=== PATIENT | male | born 1955 | race Caucasian/White ===

== ENCOUNTER 2016-07-20 11:27 | Inpatient (IN) | payer OTHER ==
[~2016-07-20] VITALS: Ht 193 cm; Wt 149.7 kg
[2016-07-20] VITALS (7 sets, daily range): BP systolic 123–179; BP diastolic 59–77; PULSE 76–89; RESP 16–26; TEMP 97.1–98.9; O2SAT 93–96
[~2016-07-20 11:27] MED LIST: ALBMDI INH; ALPR2TAB2 PO; AMLO5TAB4 PO; AMLO5TAB92 PO; AMOX-423 PO; AMOX-426 PO; ASA81 PO; ASPI-1063 PO; ASPI81TA2 PO; BUDE6HFA INH; CARV25TA55 PO; CEPH-568 PO; CEPH500C2 PO; CLIN-77 PO; CYAN100067 PO; DICY10CA59 PO; DOCU250C PO; DOXY-4 PO; DOXY100T2 PO; ENAL10TA PO; ENAL10TA75 PO; FAMO40TA35 PO; FURO-149 PO; FURO40TA5 PO; GLIP10TA11 PO; GLIP5TAB13 PO; GLU500 PO; HUMALOG; HUMULIN; INSU10VI4 SUBCUT; IPRA3AMP9 INH; LACT1CAP57 PO; METF1000 PO; METO-290 PO; METO5TAB8 PO; METR500T PO; NPH,100V SUBCUT; OMEP-130 PO; OMEP20CA10 PO; POTA20PA4 PO; POTA20TA83 PO; SIMV80TA74 PO; TRAM50TA92 PO
--- NOTE | 2016-07-20 11:27 | NUR ---
FREEDOM VILLASENOR from [facility]. Placed in room 06. Placed on gambling monitor, blood pressure machine and pulse oximeter. To gown for exam. Side rails up. Report given to LEONOR Palacios.
--- NOTE | 2016-07-20 11:28 | NUR ---
Dr. Garsia at bedside for evaluation
--- NOTE | 2016-07-20 11:30 | NUR ---
Patient in stable condition, alert and oriented x4. Patient states he needs thoracentesis due to lungs being overloaded. States last thoracentesis was appx 2 weeks ago. Breathing appears labored when patient speaks for period of time. Bilateral lower extremity +4 pitting edema with open blisters noted, dressings to bilateral lower extremities noted-clean dry and intact, patient states rehab dressed open blisters this AM. Addendum: 07/20/16 at 1221 by SAIDA No other complaints/injuries per patient or noted
[2016-07-20] MEDS ORDERED: ALBUTEROL SULFATE 0.083% 2.5 MG/3 ML VIAL.NEB IH ONE (11:45)
[2016-07-20] MEDS ORDERED: IPRATROPIUM BROM 0.5 MG/2.5 ML VIAL.NEB (ATROVENT) IH ONE (11:45)
[2016-07-20] MEDS ORDERED: FURO40TA5 PO (11:59)
[2016-07-20] MEDS ORDERED: MAGN400O4 PO (11:59)
[2016-07-20] MEDS ORDERED: ATOR20TA64 PO (11:59)
[2016-07-20] MEDS ORDERED: MUC10RT MC (11:59)
[2016-07-20] MEDS ORDERED: PIOG15TA66 PO (11:59)
[2016-07-20] MEDS ORDERED: SSNOVOLOG SUBCUT (11:59)
[2016-07-20] MEDS ORDERED: LACT1CAP69 PO (11:59)
[2016-07-20] MEDS ORDERED: ACET-2165 PO (11:59)
[2016-07-20] MEDS ORDERED: LORA-258 PO (11:59)
[2016-07-20] MEDS ORDERED: CAT.1 PO (11:59)
[2016-07-20] MEDS ORDERED: ONDA2VIA IV (11:59)
[2016-07-20] MEDS ORDERED: GLIP10TA98 PO (11:59)
[2016-07-20] MEDS ORDERED: NITR0.4T6 SL (11:59)
[2016-07-20] MEDS ORDERED: INSU100V11 SQ (11:59)
[2016-07-20] MEDS ORDERED: IPRA3AMP9 INH ×2 (11:59)
[2016-07-20] MEDS ORDERED: FERR-57 PO (11:59)
[2016-07-20] MEDS ORDERED: PRED20TA PO (11:59)
[2016-07-20] MEDS ORDERED: HYDR-1189 PO (11:59)
--- NOTE | 2016-07-20 12:00 | NUR ---
Medication reconciliation completed with information provided by [facility]. Any prior medication reconciliation on file was reviewed and corrected.
[2016-07-20 12:03] LABS: ABG TOTAL HEMOGLOBIN 9.1 G/dL (12.0-18.0); BLOOD GAS BASE EXCESS -1.4 mmol/L (-3.0-3.0); BLOOD GAS HHB 4.1 % (0.0-6.0); BLOOD O2Hb% 94.4 % (94.0-97.0)
--- NOTE | 2016-07-20 12:06 | NUR ---
# 20 gauge angiocath placed to RAC. Use of asceptic technique. Opsite placed over site. Blood return noted. Blood for lab drawn from site. Flushed with 10 cc of normal saline. No evidence of infiltration noted. Patient tolerated well.
[2016-07-20 12:14] LABS: BASOPHILS % (AUTO) 0.3 % (0.0-2.0); EOSINOPHILS # (AUTO) 0.2 K/uL (0.0-0.4); EOSINOPHILS % (AUTO) 2.9 % (0.0-4.0); HEMATOCRIT 26.6 % (36-54); HEMOGLOBIN 8.6 g/dL (14.0-18.0); LYMPHOCYTES # (AUTO) 0.6 K/uL (1.0-5.5); LYMPHOCYTES % (AUTO) 7.2 % (20.5-51.5); MEAN CORPUSCULAR HEMOGLOBIN 27 pg (27-31); MEAN CORPUSCULAR HGB CONC 32 % (32-36); MEAN CORPUSCULAR VOLUME 85 fL (79.0-98.0); MONOCYTES # (AUTO) 0.9 K/uL (0.0-1.0); MONOCYTES % (AUTO) 11.6 % (1.7-9.3); NEUTROPHILS # (AUTO) 6.2 K/uL (1.8-7.7); PLATELET COUNT (AUTO) 231 K/uL (130-430); RED BLOOD CELL COUNT(AUTO) 3.14 MIL/uL (4.2-6.2); RED CELL DISTRIBUTION WIDTH 15.9 % (9.0-15.0); WHITE BLOOD COUNT (AUTO) 7.9 K/uL (4.8-10.8)
[2016-07-20 12:26] LABS: INR 1.1 (0.80-1.20); PROTHROMBIN TIME 11.6 SECS (9.5-12.5)
[2016-07-20 12:26] LABS: CALCIUM 8.2 mg/dL (8.4-11.0); CREATININE 2.36 mg/dL (0.55-1.30)
[2016-07-20 12:31] LABS: ALBUMIN 1.7 g/dL (3.4-4.8); TOTAL BILIRUBIN 0.3 mg/dL (0.0-1.0)
[2016-07-20] MEDS ORDERED: MORPHINE 2 MG/ML INJ. SYRINGE IVP ONE (13:00)
[2016-07-20] MEDS ORDERED: ONDANSETRON HCL 4 MG/2 ML VIAL IVP ONE (13:00)
--- NOTE | 2016-07-20 13:00 | NUR ---
No needs verbalized at this time. VSS.
--- NOTE | 2016-07-20 14:05 | NUR ---
Patient will be admitted to care of Dr. Salas. Admitted to Tele unit. Will go to room 109A. Belongings list completed. Summary report printed. Bedside report given to receiving RN.
--- NOTE | 2016-07-20 14:13 | NUR ---
ADMISSION NOTE Received patient from ER via zakiya, received report from SANTA GALVEZ. Patient admitted with diagnosis of RESPIRATORY FAILURE . Patient oriented to hospital routine, call light, toileting and safety-patient verbalized understanding.
[2016-07-20] MEDS ORDERED: IPRATROPIUM/ALBUTEROL SULFATE 3 ML AMPUL.NEB INH ONE (15:15)
[2016-07-20] MEDS ORDERED: NITROGLYCERIN 0.4 MG TAB.SUBL SL PRN (15:15)
[2016-07-20] MEDS ORDERED: cloNIDine HCL 0.1 MG TABLET PO PRN (15:15)
[2016-07-20] MEDS ORDERED: INSULIN REGULAR, HUMAN 100 UNITS/ML, 10 ML VIAL (novoLIN R) SUBCUT PRN (15:15)
[2016-07-20] MEDS ORDERED: DEXTROSE 50% JECT 50 ML DISP.SYRIN IVP PRN (15:15)
[2016-07-20] MEDS ORDERED: FUROSEMIDE 40 MG/4 ML VIAL IVP ONE (15:15)
--- NOTE | 2016-07-20 15:33 | NUR ---
ADMISSION PATIENT WAS BROUGHT FROM ER WITH RESPIRATORY FAILURE. PATIENT CAME FROM [facility] IN STABLE CONDITION, NO NOTED DISTRESS, DISCOMFORT OR SOB. PATIENT IS ALERT AND ORIENTED AND ABLE TO COMMUNICATE NEEDS TO STAFF. PATIENT IS BEDREST. PATIENT HAS BILATERAL PITTING EDEMA TO LOWER EXTREMITIES. THERE ARE WOUNDS TO THE LOWER LEGS AND PICTURES WILL BE TAKEN. BED IS IN LOWEST POSITION AND CALL LIGHT IS WITHIN REACH. PATIENT WAS EDUCATED NOT GET UP WITHOUT ASSISTANCE. WILL CONTINUE TO MONITOR.
--- NOTE | 2016-07-20 16:26 | NUR ---
NOTE PICTURES WERE TAKEN OF BILATERAL LEGS AND NEW DRESSINGS WERE APPLIED, PATIENT TOLERATED IT WELL. NO COMPLAINTS OF PAIN, NO NOTED DISTRESS, DISCOMFORT OR SOB. PATIENT IS ON O2@2.5L VIA N/C. CALL LIGHT IS WITHIN REACH AND BED IS IN LOWEST POSITION. WILL CONTINUE TO MONITOR.
[2016-07-20] MEDS ORDERED: cefTRIAXone 1 GM in D5W 50 ML IV ONE (16:30)
--- NOTE | 2016-07-20 18:56 | NUR ---
CLOSING NOTE PATIENT IS RESTING IN BED COMFORTABLY WITH NO COMPLAINTS OF PAIN, NO NOTED DISTRESS, DISCOMFORT OR SOB. BED IS IN LOWEST POSITION AND CALL LIGHT IS WITHIN REACH. WILL GIVE REPORT TO NIGHT NURSE.
[2016-07-20] MEDS: IPRATROPIUM/ALBUTEROL SULFATE 3 ML AMPUL.NEB INH SCH ×2 (19:00→23:58)
--- NOTE | 2016-07-20 19:15 | NUR ---
change of shift.initial pt.assessment.pt.presents stressed,weak affect,sob breath.iv access:rt.antecubital. o2 applied 2 the pt.i am 2 f/u regarding c/o pain,nausea.call light w/in pt's reach.
--- NOTE | 2016-07-20 20:00 | NUR ---
pt.assessed.pt.requested medication4 nausea,pain.pt.requested morphine.ipt.prequesting maalox:acid reflux.i have reviewedd reviewed the emar:morphine,zofran,d/c post er-dept dose.no maalox order.i apprised the pt.that i am 2 f/u telephone .
[2016-07-20] MEDS: HYDROcodone/ACETAMIN 5-325 MG TAB (NORCO/ VICODIN) PO PRN (20:04)
--- NOTE | 2016-07-20 20:30 | NUR ---
blood glucose assessed:214 mg/dl.insulin coverage 2 b administered./sliding scale.
[2016-07-20] MEDS: ACETYLCYSTEINE 10% 4 ML VIAL (RT) INH SCH (21:00)
[2016-07-20] MEDS ORDERED: FUROSEMIDE 40 MG/4 ML VIAL IVP SCH (21:00)
--- NOTE | 2016-07-20 21:00 | NUR ---
2100p medications administered.medications reviewed w/pt.lasix:80mg ivp administered :pt.apprised of the dosage and 2 anticipate excessive urination w/in 1-2hrs.pt.understanding.
--- NOTE | 2016-07-20 21:30 | NUR ---
carrington returnd call.i apprised of the pt's medication request. has ordered morphine :4mg ivp, zofran:4mg ivp,maalox:30ml po.i have admimistered the medications.pt.had requested bi-pap. orderd the bipap [facility] settings:i have telephoned the facility and was conveyed the settings.bi-pap applied 2 the pt.
[2016-07-20] MEDS: ONDANSETRON HCL 4 MG/2 ML VIAL IVP PRN (21:37)
[2016-07-20] MEDS: FUROSEMIDE 40 MG/4 ML VIAL IVP SCH (21:44)
[2016-07-20] MEDS: DOCUSATE SODIUM 250 MG CAPSULE PO SCH (21:45)
[2016-07-20] MEDS: LACTOBACILLUS RHAMNOSUS GG 1 CAP CAPSULE PO SCH (21:46)
[2016-07-20] MEDS: CARVEDILOL 25 MG TABLET (COREG) PO SCH (21:46)
[2016-07-20] MEDS: ATORVASTATIN 20 MG TABLET PO SCH (21:49)
--- NOTE | 2016-07-20 22:00 | NUR ---
pt.assessed.pt.presents stable status.bipap applied /pt's request.urinal emptied:24hr urine collection recepticle. pt.repositioned.call light w/in pt's reach.
[2016-07-20] MEDS ORDERED: MAG-AL HYDROX/SIMETH 30 ML UDC PO PRN (22:45)
[2016-07-21] VITALS (9 sets, daily range): BP systolic 98–158; BP diastolic 51–77; PULSE 81–86; RESP 19–24; TEMP 97.5–99.5; O2SAT 90–95; Ht 193 cm; Wt 149.7 kg
--- NOTE | 2016-07-21 | NUR ---
pt.assessed.bi-pap reviewed:pt.o2 sat% 96%.pt.presents quiescent affect;calm,asleep. call light w/in pt's reach.
--- NOTE | 2016-07-21 00:39 | NUR ---
Consultation Paged Reason for consultation: Diabetic Was consult called: Yes Person who was notified: Dorothy Consulting Physician: Kem Emery [employer] Teacher Specialty: Endocrinology Ehs Teacher
--- NOTE | 2016-07-21 02:00 | NUR ---
pt.assesed.pt.presents quiescent affect;bipap assesse:o2 sat% 96%urinal emptied:24hr urine collection recepticle. no request.reminded pt.of the 1200ml h20 fluid restriction.call light w/in pt's reach.
[2016-07-21] MEDS: IPRATROPIUM/ALBUTEROL SULFATE 3 ML AMPUL.NEB INH SCH ×6 (03:00→23:32)
--- NOTE | 2016-07-21 04:00 | NUR ---
pt.assessed.urinal emptied.24hr urine recepticle.pt.provided w/cup of ice:reminded of fluid restriction.no other request@this hour.
--- NOTE | 2016-07-21 05:00 | NUR ---
pt.requested pillows 2 re-position pt.on side.i have provided the pillows assisted the pt.to the rt.side.no other request. pt.removed the bipap mask.
[2016-07-21] MEDS: MORPHINE 4 MG/ML INJ. SYRINGE IVP PRN ×2 (05:36→23:36)
[2016-07-21] MEDS: ONDANSETRON HCL 4 MG/2 ML VIAL IVP PRN ×2 (05:38→20:53)
--- NOTE | 2016-07-21 06:14 | NUR ---
pt.requested pain medication,nausea medication.i have admnistered morphine:4mg ivp,zofran:4mg ivp.2 assess pt.per pain protocol.
[2016-07-21 06:45] LABS: ALBUMIN 1.5 g/dL (3.4-4.8); CALCIUM 8.1 mg/dL (8.4-11.0); CREATININE 2.45 mg/dL (0.55-1.30); PHOSPHORUS 4.4 mg/dL (2.7-4.5); POTASSIUM 4.9 mmol/L (3.5-5.1); TOTAL BILIRUBIN 0.3 mg/dL (0.0-1.0); TOTAL PROTEIN, SERUM 6.6 g/dL (6.4-8.3)
[2016-07-21 06:49] LABS: BASOPHILS % (AUTO) 0.2 % (0.0-2.0); EOSINOPHILS # (AUTO) 0.2 K/uL (0.0-0.4); LYMPHOCYTES # (AUTO) 0.4 K/uL (1.0-5.5); LYMPHOCYTES % (AUTO) 6.5 % (20.5-51.5); MEAN CORPUSCULAR HEMOGLOBIN 27 pg (27-31); MEAN CORPUSCULAR HGB CONC 31 % (32-36); MEAN CORPUSCULAR VOLUME 86 fL (79.0-98.0); MONOCYTES # (AUTO) 0.8 K/uL (0.0-1.0); MONOCYTES % (AUTO) 12.6 % (1.7-9.3); NEUTROPHILS # (AUTO) 5.1 K/uL (1.8-7.7); NEUTROPHILS % (AUTO) 77.7 % (40.0-70.0); PLATELET COUNT (AUTO) 202 K/uL (130-430); RED BLOOD CELL COUNT(AUTO) 2.84 MIL/uL (4.2-6.2); RED CELL DISTRIBUTION WIDTH 16.1 % (9.0-15.0); WHITE BLOOD COUNT (AUTO) 6.5 K/uL (4.8-10.8)
[2016-07-21 07:29] LABS: HEMATOCRIT 24.3 % (36-54); HEMOGLOBIN 7.5 g/dL (14.0-18.0)
[2016-07-21 07:36] LABS: IRON (SERUM) 19 mcg/dL (59-158); TOTAL IRON BIND. CAPACITY 167 ug/dL (250-450)
[2016-07-21] MEDS: cefTRIAXone 1 GM in D5W 50 ML IV SCH (08:21)
[2016-07-21] MEDS: PREDNISONE 20 MG TABLET PO SCH (08:21)
[2016-07-21] MEDS: METOLAZONE 5 MG TABLET PO SCH (08:21)
[2016-07-21] MEDS: DOCUSATE SODIUM 250 MG CAPSULE PO SCH ×3 (08:21→21:00)
[2016-07-21] MEDS: ASPIRIN 81 MG TAB.CHEW PO SCH (08:21)
[2016-07-21] MEDS: FUROSEMIDE 40 MG/4 ML VIAL IVP SCH ×2 (08:21→20:53)
[2016-07-21] MEDS: LACTOBACILLUS RHAMNOSUS GG 1 CAP CAPSULE PO SCH ×2 (08:22→20:50)
[2016-07-21] MEDS: FERROUS SULFATE 325 MG TABLET.DR PO SCH (08:22)
[2016-07-21] MEDS: CARVEDILOL 25 MG TABLET (COREG) PO SCH ×2 (08:22→20:49)
[2016-07-21] MEDS: OMEPRAZOLE 20 MG CAPSULE.DR (PriLOSEC) PO SCH (08:22)
[2016-07-21] MEDS: glipiZIDE XL 5 MG TAB ( GLUCOTROL XL) PO SCH (08:22)
[2016-07-21] MEDS: CYANOCOBALAMIN 1000 mCg TABLET PO SCH (08:22)
--- NOTE | 2016-07-21 08:31 | NUR ---
AM ROUNDS Patient received, awake and alert and oriented x4. VSS. Patient denies pain at this time. Respirations even and unlabored. Patient denies SOB at this time. bookmobile librarian in place, rhythm noted. IV site patent intact and infusing IV ABX infusing as ordered. Patient has poor appetite at this time. Plan of care discussed, patient verbalized understanding. Patient encouraged to call for assistance, patient verbalized understanding. No further needs at this time. Safety and fall precautions in place, call light within reach. Will continue to monitor.
--- NOTE | 2016-07-21 10:05 | NUR ---
ROUNDS Thoracentesis being performed at this time. Patient tolerating well. No acute distress noted. Patient denies SOB at this time. Safety and fall precautions in place, call light within reach. Will continue to monitor.
[2016-07-21] MEDS: ACETYLCYSTEINE 10% 4 ML VIAL (RT) INH SCH ×2 (10:18→20:26)
[2016-07-21] MEDS: INSULIN ASPART 100 UNITS/ML, 10 ML VIAL (NovoLOG) SUBCUT PRN ×3 (11:36→22:23)
--- NOTE | 2016-07-21 12:52 | NUR ---
ROUNDS Patient sleeping, chest rise noted. No acute distress noted. Safety and fall precautions in place, call light within reach. Will continue to monitor.
[2016-07-21] MEDS ORDERED: FUROSEMIDE 40 MG/4 ML VIAL IVP ONE (13:15)
--- NOTE | 2016-07-21 14:29 | NUR ---
PULMONARY CONSULT Spoke with Linda regarding request for consultation with Dr. Nguyen ([phone]) for reason: pl effusion.
--- NOTE | 2016-07-21 14:38 | NUR ---
ROUNDS Patient resting at this time. Dr. Salas at bedside, new orders noted. Patient denies pain and SOB at this time. Will continue to monitor. Safety and fall precautions in place, call light within reach.
--- NOTE | 2016-07-21 16:08 | NUR ---
Nutrition Update Amador Scale 16 noted Pt was admitted for respiratory failure Diet: [facility] BMI: 40.2 kg/m2 RD to follow up per nutrition care standards.
--- NOTE | 2016-07-21 16:31 | NUR ---
ROUNDS Patient awake talking with family at this time. Denies pain and SOB. No further needs Safety and fall precautions in place, call light within reach. Will continue to monitor.
[2016-07-21] MEDS: HYDROcodone/ACETAMIN 5-325 MG TAB (NORCO/ VICODIN) PO PRN (17:53)
--- NOTE | 2016-07-21 18:01 | NUR ---
CLOSING NOTE Patient eating dinner at this time. Denies SOB. Patient stated 4/10 right sided abdominal pain, medication given as indicated, will reassess. Urine output noted. IV site patent and intact. school lunch monitor in place, rhythm noted. Blood sugar checked, coverage given as indicated. No further needs at this time. All needs met throughout shift. Safety and fall precautions in place, call light within reach. Will endorse to next shift.
--- NOTE | 2016-07-21 18:30 | NUR ---
BT INITIATION: Consent signed agreeing to administration of blood. Blood has been type and crossmatched. Blood sent from blood bank. Information on unit of blood checked against patient wristband at bedside by two nurses. All information matches. Patient or responsible republican informed of potential complications associated with blood transfusion. Informed of possible transfusion reaction symptoms. Aware of need to notify nurse at once of itching, shortness of breath, flushing, feeling of impending doom, or other symptoms not previously present. Vital signs taken within 5 minutes prior to initiation of transfusion. RN will remain with patient for first 15 minutes of transfusion at which time vital signs will be re-assessed.
[2016-07-21 18:33] LABS: CREATININE 2.36 mg/dL (0.55-1.30)
--- NOTE | 2016-07-21 20:00 | NUR ---
AAOX3. ON O2 AT 3L/MIN/NC. POX 90-92%. EATING BUFFALO WINGS. WANTS TO DRINK DIET SODA. REMINDED HE IS ON FLUID RESTRICTION. STATES HE KNOWS, HE JUST WANTED TO BURP. 1 UNIT PRBC INFUSING.
[2016-07-21] MEDS: ATORVASTATIN 20 MG TABLET PO SCH (20:50)
--- NOTE | 2016-07-21 21:00 | NUR ---
RT Note: 2100 Pt requested to be placed on BiPAP (/, BUR 12, 30%) at this time due to pt feeling SOB. Pt placed and is tolerating settings well. SpO2 93% and HR 86. RN is aware.
--- NOTE | 2016-07-21 22:00 | NUR ---
1 UNIT PRBC ALL INFUSED. NO ADVERSE REACTIONS. ZOFRAN 4MG IVP GIVEN FOR C/O UPSET STOMACH AND NAUSEA. ASKED FOR THE LEFT OVER BUFFALO WINGS TO BE THROWN AWAY. ACCU-CHEK 289, 6 UNITS NOVOLOG INSULIN SQ GIVEN. VOIDED 275CC THEN 200CC CLEAR YELLOW URINE VIA URINAL AFTER LASIX 80 MG GIVEN.
--- NOTE | 2016-07-21 23:30 | NUR ---
MULTIPLE REQUESTS. ASKED FOR O2 TO BE CHANGED TO BIPAP /, FIO2 30%, BUR 12, THEN BACK TO 3L/NC, THEN VICE VERSA SEVERAL TIMES. POX 90-92%. ASSISTS WITH REPOSITIONING. MORPHINE 4 MG IVP GIVEN FOR BACK PAIN AND GENERAL DISCOMFORT AND ATIVAN 0.5MG PO GIVEN FOR ANXIETY AND SLEEP PER PT REQUEST.
[2016-07-21] MEDS: LORazepam 1 MG TABLET PO PRN (23:37)
[2016-07-22] VITALS (7 sets, daily range): BP systolic 151–185; BP diastolic 69–94; PULSE 80–94; RESP 18–22; TEMP 97.3–98.4; O2SAT 91–95
[2016-07-22 00:22] LABS: CREATININE CLEARANCE,URINE 25.6 ml/min (80-120); CREATININE,URINE 50.3 MG/DL (30-125)
[2016-07-22] MEDS: IPRATROPIUM/ALBUTEROL SULFATE 3 ML AMPUL.NEB INH SCH ×6 (03:18→23:00)
[2016-07-22] MEDS: MORPHINE 4 MG/ML INJ. SYRINGE IVP PRN ×4 (03:50→18:02)
--- NOTE | 2016-07-22 04:00 | NUR ---
SLEPT FOR LONG PERIODS OF TIME. MORPHINE 4 MG IVP GIVEN FOR C/O TAILBONE PAIN. ASSISTS WITH REPOSITIONING. PLEASANT. CONVERSANT. VOIDED 400CC CLEAR YELLOW URINE EARLIER VIA URINAL. ATE SOME CRACKERS EARLIER, ASKED FOR SOME APPLE SAUCE NOW. VSS.
--- NOTE | 2016-07-22 04:06 | NUR ---
Consultation Paged Reason for consultation: CHF Was consult called: Yes Person who was notified: Daphney Consulting Physician: Gutierrez Morgan Neon Glass Blower Specialty: Cardio Neon Glass Blower
--- NOTE | 2016-07-22 05:49 | NUR ---
CALLING FOR A UROGYNECOLOGY PHYSICIAN CALLED [facility] AT [phone] LEFT A VOICEMAIL REQUESTING FOR A UROGYNECOLOGY PHYSICIAN PER PATIENTS REQUEST.
[2016-07-22] MEDS: INSULIN ASPART 100 UNITS/ML, 10 ML VIAL (NovoLOG) SUBCUT PRN ×4 (06:59→20:42)
--- NOTE | 2016-07-22 07:00 | NUR ---
SLEPT INTERMITTENTLY. ACCU-CHEK 212, 4 UNITS NOVOLOG INSULIN SQ GIVEN. NO COMPLAINTS OFFERED AT THIS TIME. REMAINS IN GUARDED CONDITION.
[2016-07-22 08:57] LABS: ALBUMIN 1.6 g/dL (3.4-4.8); CALCIUM 8.1 mg/dL (8.4-11.0); CREATININE 2.7 mg/dL (0.55-1.30); POTASSIUM 4.6 mmol/L (3.5-5.1); THYROID STIMULATING HORMONE 0.93 uIu/mL (0.34-4.82); TOTAL BILIRUBIN 0.3 mg/dL (0.0-1.0); TOTAL PROTEIN, SERUM 6.9 g/dL (6.4-8.3)
[2016-07-22] MEDS: ASPIRIN 81 MG TAB.CHEW PO SCH (09:00)
[2016-07-22] MEDS: cefTRIAXone 1 GM in D5W 50 ML IV SCH (09:22)
[2016-07-22] MEDS: ACETYLCYSTEINE 10% 4 ML VIAL (RT) INH SCH ×2 (09:30→20:43)
--- NOTE | 2016-07-22 09:30 | NUR ---
[facility] CALLED RE: CONFIRM THAT A VISION THERAPIST IS COMING LATER.
[2016-07-22] MEDS: CYANOCOBALAMIN 1000 mCg TABLET PO SCH (09:31)
[2016-07-22] MEDS: glipiZIDE XL 5 MG TAB ( GLUCOTROL XL) PO SCH (09:31)
[2016-07-22] MEDS: METOLAZONE 5 MG TABLET PO SCH (09:32)
[2016-07-22] MEDS: CARVEDILOL 25 MG TABLET (COREG) PO SCH ×2 (09:35→20:43)
[2016-07-22] MEDS: OMEPRAZOLE 20 MG CAPSULE.DR (PriLOSEC) PO SCH (09:36)
[2016-07-22] MEDS: FERROUS SULFATE 325 MG TABLET.DR PO SCH (09:36)
[2016-07-22] MEDS: PREDNISONE 20 MG TABLET PO SCH (09:37)
[2016-07-22] MEDS: LACTOBACILLUS RHAMNOSUS GG 1 CAP CAPSULE PO SCH ×2 (09:38→20:44)
[2016-07-22] MEDS: FUROSEMIDE 40 MG/4 ML VIAL IVP SCH (09:40)
[2016-07-22] MEDS: DOCUSATE SODIUM 250 MG CAPSULE PO SCH ×3 (09:43→20:48)
[2016-07-22 09:47] LABS: BASOPHILS % (AUTO) 0.3 % (0.0-2.0); EOSINOPHILS # (AUTO) 0.1 K/uL (0.0-0.4); EOSINOPHILS % (AUTO) 1.9 % (0.0-4.0); HEMATOCRIT 26.9 % (36-54); HEMOGLOBIN 8.5 g/dL (14.0-18.0); LYMPHOCYTES # (AUTO) 0.6 K/uL (1.0-5.5); LYMPHOCYTES % (AUTO) 7.6 % (20.5-51.5); MEAN CORPUSCULAR HEMOGLOBIN 27 pg (27-31); MEAN CORPUSCULAR HGB CONC 32 % (32-36); MEAN CORPUSCULAR VOLUME 86 fL (79.0-98.0); MONOCYTES % (AUTO) 13.1 % (1.7-9.3); NEUTROPHILS # (AUTO) 5.8 K/uL (1.8-7.7); NEUTROPHILS % (AUTO) 77.1 % (40.0-70.0); PLATELET COUNT (AUTO) 196 K/uL (130-430); RED BLOOD CELL COUNT(AUTO) 3.11 MIL/uL (4.2-6.2); RED CELL DISTRIBUTION WIDTH 15.4 % (9.0-15.0); WHITE BLOOD COUNT (AUTO) 7.5 K/uL (4.8-10.8)
--- NOTE | 2016-07-22 10:00 | NUR ---
Patient goes for CT head via wc this morning. Kyrie Fairchild RN
--- NOTE | 2016-07-22 12:00 | NUR ---
Patient BS 151, and patient received insulin per sliding scale per do. Patient is stating that he is feeling really tired this afternoon. Kyrie Fairchild RN
--- NOTE | 2016-07-22 14:30 | NUR ---
Patient co pain buttocks area, and medicated earlier, level 7/10, and resolves to 1-2/10. Patient friend visiting, and leaves some food in patient refrig. Gave patient privacy to visit. Kyrie Fairchild RN
--- NOTE | 2016-07-22 18:00 | NUR ---
Patient co pain, lower back, and will be medicated with morphine per do, pain level is 5/10. BS 321, and insulin coverage given. Kyrie Fairchild RN
--- NOTE | 2016-07-22 19:40 | NUR ---
PM ASSESSMENT: Patient alert and oriented x 4. Able to make needs known verbally. Afebrile. Sinus rhythm on the monitor. On O2 at 2LPM via nasal cannula. No acute distress or SOB at this time. Patient on fluid restriction 1200ml/day. Patient aware and agrees with the restriction. IV access on the right AC G20 patent and intact. No signs of redness or swelling on the IV site. Right second toe amputated. Placed call light within reach. Will continue to monitor.
[2016-07-22] MEDS: ATORVASTATIN 20 MG TABLET PO SCH (20:44)
--- NOTE | 2016-07-22 21:00 | NUR ---
BLOOD SUGAR: Patient's blood sugar 305 at this time. No signs of hyperglycemia noted. Asked when he can take morphine again, informed patient that he can take it again around 2200. Call light within reach. Bed brakes locked and in lowest level. Will continue to monitor.
[2016-07-23] VITALS (7 sets, daily range): BP systolic 126–158; BP diastolic 60–85; PULSE 69–82; RESP 18–19; TEMP 96.8–98.6; O2SAT 89–98
--- NOTE | 2016-07-23 01:24 | NUR ---
PT UPDATE: Patient sleeping comfortably at this time. No acute distress or SOB noted. Vital signs within normal limits. Safety precautions in place. Will continue to monitor.
[2016-07-23] MEDS: MORPHINE 4 MG/ML INJ. SYRINGE IVP PRN (02:48)
[2016-07-23] MEDS: LORazepam 1 MG TABLET PO PRN (02:50)
--- NOTE | 2016-07-23 03:00 | NUR ---
PAIN: Patient awake, complaining of pain on his back and head. Pain scale of 7/10. Afebrile. Patient also asked for Ativan, pe patient he wants to go back to sleep. Patient in no acute distress or SOB at this time. All needs met. Call light within reach. Will continue to monitor.
[2016-07-23] MEDS: IPRATROPIUM/ALBUTEROL SULFATE 3 ML AMPUL.NEB INH SCH ×6 (04:03→23:45)
[2016-07-23] MEDS: ACETAMINOPHEN 325 MG TABLET PO PRN (04:54)
[2016-07-23] MEDS: INSULIN ASPART 100 UNITS/ML, 10 ML VIAL (NovoLOG) SUBCUT PRN ×4 (06:32→21:01)
[2016-07-23 07:22] LABS: ALBUMIN 1.5 g/dL (3.4-4.8); BASOPHILS % (AUTO) 0.3 % (0.0-2.0); CREATININE 2.67 mg/dL (0.55-1.30); EOSINOPHILS # (AUTO) 0.1 K/uL (0.0-0.4); EOSINOPHILS % (AUTO) 1.2 % (0.0-4.0); HEMATOCRIT 26.4 % (36-54); HEMOGLOBIN 8.4 g/dL (14.0-18.0); LYMPHOCYTES # (AUTO) 0.5 K/uL (1.0-5.5); LYMPHOCYTES % (AUTO) 7.2 % (20.5-51.5); MEAN CORPUSCULAR HEMOGLOBIN 27 pg (27-31); MEAN CORPUSCULAR HGB CONC 32 % (32-36); MEAN CORPUSCULAR VOLUME 86 fL (79.0-98.0); MONOCYTES % (AUTO) 13.3 % (1.7-9.3); PLATELET COUNT (AUTO) 212 K/uL (130-430); POTASSIUM 4.9 mmol/L (3.5-5.1); RED BLOOD CELL COUNT(AUTO) 3.09 MIL/uL (4.2-6.2); RED CELL DISTRIBUTION WIDTH 15.5 % (9.0-15.0); TOTAL BILIRUBIN 0.2 mg/dL (0.0-1.0); TOTAL PROTEIN, SERUM 6.7 g/dL (6.4-8.3); WHITE BLOOD COUNT (AUTO) 7.6 K/uL (4.8-10.8)
--- NOTE | 2016-07-23 07:57 | NUR ---
Cardio consult: Spoke with Daphney over phone, she will inform Dr. Verdugo about consult.
--- NOTE | 2016-07-23 08:00 | NUR ---
initial notes rec patient awake alert with hob elevated.with o2 at 2liters via nasal cannula. resp easy and unlabored. having his breathing tx at this time. bed in low position and side rails up and locked. call light within reached.
[2016-07-23] MEDS: ASPIRIN 81 MG TAB.CHEW PO SCH (09:00)
[2016-07-23] MEDS: ACETYLCYSTEINE 10% 4 ML VIAL (RT) INH SCH ×2 (09:00→20:05)
[2016-07-23] MEDS: HYDROcodone/ACETAMIN 5-325 MG TAB (NORCO/ VICODIN) PO PRN (09:09)
[2016-07-23] MEDS: LACTOBACILLUS RHAMNOSUS GG 1 CAP CAPSULE PO SCH ×2 (09:09→20:58)
[2016-07-23] MEDS: FERROUS SULFATE 325 MG TABLET.DR PO SCH (09:10)
[2016-07-23] MEDS: METOLAZONE 5 MG TABLET PO SCH (09:11)
[2016-07-23] MEDS: OMEPRAZOLE 20 MG CAPSULE.DR (PriLOSEC) PO SCH (09:11)
[2016-07-23] MEDS: glipiZIDE XL 5 MG TAB ( GLUCOTROL XL) PO SCH (09:12)
[2016-07-23] MEDS: CYANOCOBALAMIN 1000 mCg TABLET PO SCH (09:12)
[2016-07-23] MEDS: PREDNISONE 10 MG TABLET PO SCH (09:12)
[2016-07-23] MEDS: CARVEDILOL 25 MG TABLET (COREG) PO SCH ×2 (09:13→20:59)
[2016-07-23] MEDS: cefTRIAXone 1 GM in D5W 50 ML IV SCH (09:13)
[2016-07-23] MEDS: ONDANSETRON HCL 4 MG/2 ML VIAL IVP PRN (10:54)
--- NOTE | 2016-07-23 12:50 | NUR ---
PT NOTE [id number] MEDICAL CHART REVIEWED. Pt WAS CLEARED FOR PT PER RN; INITIAL ATTEMPT FOR PT EVAL, Pt WAS EATING LUNCH. Pt REFUSED TO PARTICIPATE WITH PT DURING 2ND ATTEMPT, EDUCATED ON BENEFITS OF PT, BUT STATES THAT HE HAS A LOT OF THINGS GOING ON AND THAT HE WOULD HAVE SX TOMORROW. RN NOTIFIED. PVE(2)
[2016-07-23] MEDS ORDERED: MORPHINE SULFATE 15 MG TABLET.SA PO SCH (13:00)
[2016-07-23] MEDS ORDERED: MORPHINE SULFATE 15 MG TABLET.SA PO PRN (13:00)
--- NOTE | 2016-07-23 15:20 | NUR ---
Wound Evaluation: Wound consult request per Dr. Salas. Thank you, Dr. Salas, for the consult. Patient was awake, alert, oriented, agreed to wound assessment, and received in a Jackson Bed with an Atmos-Air 9000 mattress. Skin is poor. Amador score is a 16. Past medical history: Diabetes Mellitus, Cardiac Disorders, CHF, GERD, Hypertension, Prior Diabetic Ulcers (non-healing), right foot second and third toe amputations, Chronic Kidney Disease, Peripheral Arterial Disease, Osteomyelitis of the foot, Right Foot second and third toe amputations, Orthopedic surgeries, Diabetic Nephropathy, Atherosclerosis, and Anemia of Chronic Illness. Current labs: WBC 7.6, RBC 3.09, Hgb 8.4, Hct 26.4, Gluc 214, BUN 58, Creat 2.67, GFR 26, Ca 8.0, Alk Phos 198, Alb 1.5. Intrinsic factors that delay wound healing: Diabetes Mellitus, Anemia. Extrinsic factors: decreased mobility. Blood Culture results x 2 in progress. MRSA Screen results negative. Pleural Fluid Culture results in progress. Patient presents with: 1) Right Distal Anterior Lower Extremity: Diabetic/Neuropathic Ulcer, present on admission. Wound bed has 60% pink tissue, 40% yellow tissue. Yamilet-wound pink. No odor, small serous drainage. Measures 7.5 cm x 7.0 cm. Recommend: Cleanse wound with normal saline. Put moisture barrier cream onto yamilet-wound. Put Venelex ointment onto wound bed. Cover with foam dressing. Wrap with rebeca wrap. Perform wound care daily and as needed for soiling. 2) Left Distal Anterior Lower Extremity: Dark discoloration and erythema, present on admission. No odor, scant serous drainage. Recommend: Cleanse site with normal saline. Pat dry. Cover with non-adherent pad, then foam dressing. Wrap with rebeca wrap. Perform site care daily and as needed for soiling. 3) Right Plantar Foot: Chronic Diabetic/Neuropathic Ulcer, present on admission. Wound bed has a 5% hard, black eschar, 95% hard, dry, yellow eschar. Yamilet-wound intact, calloused. No odor, no drainage. Dry, stable. Measures 2.2 cm x 2.7 cm. Recommend: Cover with foam dressing. Perform site care daily and as needed for soiling. 4) Right Dorsal Foot: Closed bulla with serous fluid, present on admission. Yamilet-bulla intact. No odor, no drainage. Recommend: No dressing needed. Continue to monitor site q shift. Contact wound care if bulla opens. Also recommend encourage and assist patient as needed with repositioning every 2 hours with pillow support, and off-load bilateral heels and pressure areas with pillows for pressure redistribution. Use moisture barrier cream on moisture susceptible areas qid and as needed for soiling.
[2016-07-23] MEDS ORDERED: MORPHINE SULFATE 30 MG Immediate Release TABLET PO PRN (17:45)
--- NOTE | 2016-07-23 20:00 | NUR ---
Rounds Received patient lying in bed resting and watching tv, denies of any pain, no acute respiratory distress noted. IV site checked intact and patent on saline lock. Instructed patient to call nurse when getting out of bed, call light within reach.
[2016-07-23] MEDS: ATORVASTATIN 20 MG TABLET PO SCH (20:58)
[2016-07-23] MEDS: DOCUSATE SODIUM 250 MG CAPSULE PO SCH ×2 (20:58→21:00)
--- NOTE | 2016-07-23 22:00 | NUR ---
Rounds Patient resting quietly at this time. call light within reach.
[2016-07-24] VITALS (8 sets, daily range): BP systolic 142–168; BP diastolic 71–82; PULSE 75–89; RESP 17–22; TEMP 96.4–98.8; O2SAT 90–95
--- NOTE | 2016-07-24 00:24 | NUR ---
Rounds Patient resting quietly at this time. no acute distress noted. call light within reach.
[2016-07-24] MEDS: LORazepam 1 MG TABLET PO PRN (01:20)
[2016-07-24] MEDS: IPRATROPIUM/ALBUTEROL SULFATE 3 ML AMPUL.NEB INH SCH ×6 (02:37→23:27)
[2016-07-24] MEDS: ACETAMINOPHEN 325 MG TABLET PO PRN (02:40)
[2016-07-24] MEDS: MORPHINE 4 MG/ML INJ. SYRINGE IVP PRN ×3 (03:37→15:51)
[2016-07-24] MEDS: cloNIDine HCL 0.1 MG TABLET PO PRN (03:49)
--- NOTE | 2016-07-24 03:56 | NUR ---
Blood pressure Patient blood pressure 163/77, Hr 80 Clonidine 0.1mg po given at 0349. will monitor for effectiveness.
[2016-07-24 06:06] LABS: FOLATE (FOLIC ACID) 3.9 ng/mL (>3.0)
[2016-07-24] MEDS: INSULIN ASPART 100 UNITS/ML, 10 ML VIAL (NovoLOG) SUBCUT PRN ×3 (06:18→21:39)
--- NOTE | 2016-07-24 06:41 | NUR ---
Closing notes Re-checked b/p 142/74, Hr 80. Pain medication given earlier with effective result noted. Patient resting at this time. Patient NPO after MN for procedure today.
[2016-07-24 07:51] LABS: BASOPHILS % (AUTO) 0.3 % (0.0-2.0); EOSINOPHILS # (AUTO) 0.2 K/uL (0.0-0.4); HEMATOCRIT 27.2 % (36-54); HEMOGLOBIN 8.8 g/dL (14.0-18.0); LYMPHOCYTES # (AUTO) 0.6 K/uL (1.0-5.5); LYMPHOCYTES % (AUTO) 7.2 % (20.5-51.5); MEAN CORPUSCULAR HEMOGLOBIN 27 pg (27-31); MEAN CORPUSCULAR HGB CONC 32 % (32-36); MEAN CORPUSCULAR VOLUME 85 fL (79.0-98.0); MONOCYTES # (AUTO) 1.2 K/uL (0.0-1.0); MONOCYTES % (AUTO) 14.9 % (1.7-9.3); NEUTROPHILS # (AUTO) 6.4 K/uL (1.8-7.7); NEUTROPHILS % (AUTO) 75.6 % (40.0-70.0); PLATELET COUNT (AUTO) 242 K/uL (130-430); RED CELL DISTRIBUTION WIDTH 15.5 % (9.0-15.0); WHITE BLOOD COUNT (AUTO) 8.4 K/uL (4.8-10.8)
[2016-07-24] MEDS: ACETYLCYSTEINE 10% 4 ML VIAL (RT) INH SCH ×2 (08:09→19:57)
--- NOTE | 2016-07-24 08:10 | NUR ---
Initial note A/O x 4, mild SOB when exertion, no chest pain, c/o lower back pain. Skin warm to touch, dressing on bilateral legs, clean and intact. NPO, patient is aware of bronchoscope will be performed later. Diminished breathing sounds with 89-90% O2 sat at 3 L, RT at bedside for breathing treatment. Positive bowel sound. +2 radial and pedal pulses without edema. Call needs met, call light within reach, will continue to monitor patient.
[2016-07-24 08:22] LABS: ALBUMIN 1.6 g/dL (3.4-4.8); CALCIUM 8.3 mg/dL (8.4-11.0); CREATININE 2.59 mg/dL (0.55-1.30); POTASSIUM 4.6 mmol/L (3.5-5.1); TOTAL BILIRUBIN 0.2 mg/dL (0.0-1.0); TOTAL PROTEIN, SERUM 7.1 g/dL (6.4-8.3)
[2016-07-24] MEDS: FUROSEMIDE 40 MG/4 ML VIAL IVP SCH (08:25)
[2016-07-24] MEDS: cefTRIAXone 1 GM in D5W 50 ML IV SCH (08:38)
[2016-07-24] MEDS: DOCUSATE SODIUM 250 MG CAPSULE PO SCH ×2 (09:00→21:00)
[2016-07-24] MEDS: CARVEDILOL 25 MG TABLET (COREG) PO SCH ×2 (09:00→21:32)
[2016-07-24] MEDS: LACTOBACILLUS RHAMNOSUS GG 1 CAP CAPSULE PO SCH ×2 (09:00→21:32)
[2016-07-24] MEDS: PREDNISONE 10 MG TABLET PO SCH ×2 (09:00→13:23)
[2016-07-24] MEDS: OMEPRAZOLE 20 MG CAPSULE.DR (PriLOSEC) PO SCH ×2 (09:00→13:22)
[2016-07-24] MEDS: glipiZIDE XL 5 MG TAB ( GLUCOTROL XL) PO SCH (09:00)
[2016-07-24] MEDS: CYANOCOBALAMIN 1000 mCg TABLET PO SCH ×2 (09:00→13:22)
[2016-07-24] MEDS: BALSAM PERU/CASTOR OIL 60 GM OINT...G. TP SCH ×2 (09:00→15:30)
[2016-07-24] MEDS: ASPIRIN 81 MG TAB.CHEW PO SCH ×2 (09:00→13:21)
[2016-07-24] MEDS: METOLAZONE 5 MG TABLET PO SCH ×2 (09:00→13:22)
[2016-07-24] MEDS: FERROUS SULFATE 325 MG TABLET.DR PO SCH ×2 (09:00→13:21)
[2016-07-24] MEDS ORDERED: MEPERIDINE HCL/PF 100 MG/ML AMP ONE ×2 (09:31→09:32)
[2016-07-24] MEDS ORDERED: MIDAZOLAM HCL 5 MG/5 ML VIAL ONE ×2 (09:32→09:33)
[2016-07-24] MEDS ORDERED: LIDOCAINE 2% JELLY UROJECT 10 ML MM ONE (09:34)
[2016-07-24] MEDS ORDERED: LIDOCAINE 1%, 20 ML MDV 60 ML ONE (09:35)
--- NOTE | 2016-07-24 10:20 | NUR ---
Round A/O x 4, mild SOB when exertion, no chest pain, pain subsided. Skin warm to touch, wounds at bilateral lower legs, wound care performed as MD order. Patient tolerated well. NPO, patient is aware of bronchoscope will be performed later. Diminished breathing sounds with 89-90% O2 sat at 3 L. Educated patient to use incentive spirometer to prevent lung closure. Patient is able to demo back with 1000 ml. Instructed patient to use it 10 times every hour while awake. Positive bowel sound. +2 radial and pedal pulses without edema. Call needs met, call light within reach, will continue to monitor patient.
[2016-07-24] MEDS ORDERED: LIDOCAINE MPF 2% 5mL VIAL INH ONE (10:30)
[2016-07-24] MEDS ORDERED: fentaNYL CITRATE/PF 100 MCG/2 ML AMP ONE ×2 (11:19→11:25)
--- NOTE | 2016-07-24 11:20 | NUR ---
Bronchoscopy Pt left unit for bronchoscopy, no s/s of distress or sob noted, pt has no c/o pain at this time, pt in stable condition, iv catheter patent, no signs of infection or infiltration noted.
[2016-07-24] MEDS ORDERED: MIDAZOLAM HCL 5 MG/5 ML VIAL IVP ONE ×2 (11:50→11:54)
[2016-07-24] MEDS ORDERED: fentaNYL CITRATE/PF 100 MCG/2 ML AMP IVP ONE ×2 (11:52→11:56)
--- NOTE | 2016-07-24 12:40 | NUR ---
Patient back to the room S/p bronchoscopy, A/O x 4, VS 98.4, 88, 22, 142/76/88, O2 88% on 3 L, tired looking, mild SOB when exertion, no chest pain, stated low back pain 2/10, denied pain med at this time. Skin warm to touch, dressing at bilateral legs dry and intact.Diminished breathing sounds with 88% O2 sat at 3 L. Reenforced patient to use incentive spirometer to prevent lung closure. Patient is able to demo back with 1000 ml. Positive bowel sound. +2 radial and pedal pulses without edema. Call needs met, call light within reach, will continue to monitor patient.
--- NOTE | 2016-07-24 13:10 | NUR ---
MD CALL Pt back from bronchoscopy, no orders for diet, dr call paged and made aware, new orders to resume current diet.
--- NOTE | 2016-07-24 14:00 | NUR ---
Round A/O x 4, mild SOB when exertion, no chest pain, pain subsided. Skin warm to touch, wounds at bilateral lower legs, wound care performed as MD order. Patient tolerated well. Diminished breathing sounds with 90% O2 sat at 3 L. Reenforced patient to use incentive spirometer. Patient is able to demo back with 1000 ml. Patient is aware to use it 10 times every hour while awake. Positive bowel sound. +2 radial and pedal pulses without edema. Call needs met, call light within reach, will continue to monitor patient.
--- NOTE | 2016-07-24 14:00 | NUR ---
PT NOTE [id number] MEDICAL CHART REVIEWED. Pt WAS CLEARED FOR PT; Pt HAD BRONCHOSCOPY 11AM. Pt REFUSED TO PARTICIPATE W/PT EVAL, STATES, "I CAN'T DO IT RIGHT NOW." Pt REQUESTED TO BE TRY TOMORROW INSTEAD. RN NOTIFIED. PVE(1)
--- NOTE | 2016-07-24 14:35 | NUR ---
SPECIMEN Spoke with Rosa Isela from GI lab as she just got back from lunch in regards to specimen sent for bronchoscopy, she sent it to pathology and signed it in, spoke with pritesh from pathology and she received specimen, collected pending tests but made aware that specimen was opened already and it was uncertain if other lab tests could be done, dr call made aware and spoke with pritesh herself, stated other lab tests ordered could be done, charge nurse made aware, director made aware.
--- NOTE | 2016-07-24 15:15 | NUR ---
DC PLANNING: late entry : Faxed referral to tertiary hp to [facility] requesting for Laprocopic Thoracotomy. CM to f/u with their decision. The pt. just finished Bronchoscopy procedure this atfernoon. will confirm with md. whether pt. is stable for xfer.
--- NOTE | 2016-07-24 16:00 | NUR ---
Round A/O x 4, mild SOB when exertion, no chest pain, but c/o lower back pain /10. Morphine IVP given. Tired looking. Skin warm to touch, wounds at bilateral lower legs, dressing clan and intact. Diminished breathing sounds with 89-90% O2 sat at 3 L. Reenforced patient to use incentive spirometer. Patient is able to demo back with 1000 ml. Patient is aware to use it 10 times every hour while awake. Positive bowel sound. +2 radial and pedal pulses without edema. Call needs met, call light within reach, will continue to monitor patient.
[2016-07-24] MEDS: IPRATROPIUM/ALBUTEROL SULFATE 3 ML AMPUL.NEB INH PRN (17:22)
--- NOTE | 2016-07-24 18:00 | NUR ---
Closing note A/O x 4, mild SOB when exertion, no chest pain, lower back pain subsided after Morphine given. Tired looking. Skin warm to touch, wounds at bilateral lower legs, dressing clan and intact. Diminished breathing sounds with 89-90% O2 sat at 3 L. Eating dinner at this time. Patient receiving 2 units of Levemir but refused to take Novolog, no s/s of hyper- or hypoglycemia. Reenforced patient to use incentive spirometer. Patient is able to demo back with 1000 ml. Patient is aware to use it 10 times every hour while awake. Positive bowel sound. +2 radial and pedal pulses without edema. Call needs met, call light within reach, will continue to monitor patient.
--- NOTE | 2016-07-24 19:30 | NUR ---
Notes Per Stella GALVEZobjects conservator nurse and Carmen GALVEZ that give me report that Dr Salas ordered Blood transfusion one unit PRBC to transfuse tonight. see MD order for more info.
--- NOTE | 2016-07-24 20:00 | NUR ---
Rounds Received patient lying in bed with HOB elevated, resting and watching tv, denies of any pain, no acute distress noted. IV site checked intact and patent. Encouraged patient to use I.S. Instructed patient to call nurse when getting out of bed, call light within reach.
--- NOTE | 2016-07-24 21:10 | NUR ---
BT INITIATION: Consent signed per patient Janet Kurtz agreeing to administration of blood. Blood has been type and crossmatched. Blood sent from blood bank. Information on unit of blood checked against patient wristband at bedside by two nurses. All information matches. Patient or responsible democrat informed of potential complications associated with blood transfusion. Informed of possible transfusion reaction symptoms. Aware of need to notify nurse at once of itching, shortness of breath, flushing, feeling of impending doom, or other symptoms not previously present. Vital signs taken within 5 minutes prior to initiation of transfusion. RN will remain with patient for first 15 minutes of transfusion at which time vital signs will be re-assessed.
--- NOTE | 2016-07-24 21:30 | NUR ---
Notes Patient ordered bake chicken wings from [employer] (delivered) . Instructed patient about his diet, per patient he does not like the hospital food and he ordered bake chicken wing with light sauce. Charge nurse made aware.
[2016-07-24] MEDS: ATORVASTATIN 20 MG TABLET PO SCH (21:32)
[2016-07-24] MEDS: ENOXAPARIN SODIUM 30 MG/0.3 ML SYRINGE SUBCUT SCH (21:33)
[2016-07-24] MEDS: ISOSORBIDE MONONITRATE 30 MG TAB.ER.24H PO SCH (21:33)
--- NOTE | 2016-07-24 23:30 | NUR ---
Bi pap Patient on Bi pap machine per patient request. per RT Bi pap setting 31/10, 30%, rate 12.
[2016-07-25] VITALS (8 sets, daily range): BP systolic 105–160; BP diastolic 55–75; PULSE 72–84; RESP 18–21; TEMP 97–98.6; O2SAT 86–92
--- NOTE | 2016-07-25 00:05 | NUR ---
Blood Transfusion completed Blood Transfusion completed, no adverse reaction noted.
--- NOTE | 2016-07-25 00:30 | NUR ---
RT NOTES PT REQUEST OFF BIPAP AT THIS TIME. PLACED PT ON 4LNC. NO RESP DISTRESS NOTED. RN AWARE.
--- NOTE | 2016-07-25 01:00 | NUR ---
Rounds Patient resting quietly, no s/s of any pain, no acute distress noted. call light within reach.
--- NOTE | 2016-07-25 01:57 | NUR ---
C/O nausea Patient c/o nausea, no vomiting. Covering RN made aware to give patient Zofran ivp. no acute distress noted. Patient B/P 143/62, Hr 75, O2 saturation 90% on 2 liter nasal cannula.
[2016-07-25] MEDS: ONDANSETRON HCL 4 MG/2 ML VIAL IVP PRN (01:59)
[2016-07-25] MEDS: IPRATROPIUM/ALBUTEROL SULFATE 3 ML AMPUL.NEB INH SCH ×6 (03:00→23:00)
--- NOTE | 2016-07-25 04:00 | NUR ---
Rounds Patient awake, sitting at the edge of the bed playing games on his Laptop computer. no acute distress noted. Instructed patient to call nurse when getting out of bed, call light within reach.
[2016-07-25] MEDS: MORPHINE 4 MG/ML INJ. SYRINGE IVP PRN (04:27)
[2016-07-25] MEDS: INSULIN ASPART 100 UNITS/ML, 10 ML VIAL (NovoLOG) SUBCUT PRN ×4 (06:36→21:35)
--- NOTE | 2016-07-25 06:51 | NUR ---
Closing notes Patient resting at this time, denies of any pain, no acute distress noted. call light within reach.
--- NOTE | 2016-07-25 08:00 | NUR ---
AM ROUNDS Pt sitting up in bed...Denies pain at this time...HL to RAC flushes well...BLE wounds covered C/D/I...Pt on 2L oxygen...Pt makes needs known...Call light/phone w/in reach...Will cont to monitr
[2016-07-25 08:19] LABS: CREATININE 2.65 mg/dL (0.55-1.30); POTASSIUM 4.8 mmol/L (3.5-5.1)
[2016-07-25] MEDS: cefTRIAXone 1 GM in D5W 50 ML IV SCH (08:57)
[2016-07-25] MEDS: FUROSEMIDE 40 MG/4 ML VIAL IVP SCH (08:58)
--- NOTE | 2016-07-25 08:59 | NUR ---
DC PLANNING: Faxed the pt. info to [facility] yesterday to the transfer ctr fax# [phone] belinda# [phone] opt 3. and received return call from Isamar this am. Additional info provided to Isamar and she will sent the case for review. Dr. Salas made aware. Addendum: 07/25/16 at 1409 by Wilfrid Pereira RN >> late entry: Returned call from Kael [facility] xfer ctr # [phone] opt#3, stated that " [facility] would like to accept the patient but pending [facility] auth. He also requested additional xray and CT which were faxed to him. Made Kael aware that the PMD confirmed that the request procedure can not be done as out pt DT pt. still has bleeding in lungs. Kael will update his md and will call back with decision. >> Informed Kael that jose armando Linares at [facility] will provide the auth. ([facility] is contracted with [facility]) Kael was provided ora's contact # [phone] for further auth. verification.
[2016-07-25] MEDS: ACETYLCYSTEINE 10% 4 ML VIAL (RT) INH SCH ×2 (09:00→19:35)
[2016-07-25] MEDS: LACTOBACILLUS RHAMNOSUS GG 1 CAP CAPSULE PO SCH ×2 (09:16→21:28)
[2016-07-25] MEDS: METOLAZONE 5 MG TABLET PO SCH (09:16)
[2016-07-25] MEDS: FERROUS SULFATE 325 MG TABLET.DR PO SCH (09:16)
[2016-07-25] MEDS: glipiZIDE XL 5 MG TAB ( GLUCOTROL XL) PO SCH (09:17)
[2016-07-25] MEDS: CYANOCOBALAMIN 1000 mCg TABLET PO SCH (09:17)
[2016-07-25] MEDS: OMEPRAZOLE 20 MG CAPSULE.DR (PriLOSEC) PO SCH (09:17)
[2016-07-25] MEDS: ASPIRIN 81 MG TAB.CHEW PO SCH (09:17)
[2016-07-25] MEDS: PREDNISONE 10 MG TABLET PO SCH (09:17)
[2016-07-25] MEDS: DOCUSATE SODIUM 250 MG CAPSULE PO SCH ×2 (09:17→21:28)
[2016-07-25] MEDS: CARVEDILOL 25 MG TABLET (COREG) PO SCH ×2 (09:17→21:28)
[2016-07-25] MEDS: ISOSORBIDE MONONITRATE 30 MG TAB.ER.24H PO SCH ×2 (09:18→21:27)
--- NOTE | 2016-07-25 10:00 | NUR ---
P.T. NOTES PATIENT'S CHART REVIEWED, CLEARED BY HIS NURSE FOR P.T. UPON ARRIVAL, PATIENT REFUSED TO PARTICIPATE AGAIN WITH P.T. AND ASKED "WHO ORDERED THE P.T. EVAL? I WILL TO THAT DOCTOR!" EDUCATED ON THE IMPORTANCE OF TH OUT OF BED ACTIVITIES, EVEN OFFERED A RECLINING CHAIR BUT STATES HE CAN RECLINE THE HEAD OF THE BED SO NO NEED TO SIT HIM UP CHAIR. INFORMED HIS NURSE LULU OF HIS 3RD REFUSAL (SINCE SATURDAY). PLAN:WE'LL CANCEL P.T. EVAL ORDER. PVE Addendum: 07/25/16 at 1139 by Geeta Maya PT *"I WILL TALK TO THAT DOCTOR!"
--- NOTE | 2016-07-25 10:04 | NUR ---
PER LAMAR FROM PHYSICAL THERAPY PT HAS REFUSED TO GET UP. THIS IS THE THIRD TIME PT HAS REFUSED P.T......WILL INFORM DR MICHAELS WHEN HE COMES IN
--- NOTE | 2016-07-25 11:30 | NUR ---
Nutrition F/U Admitting Diagnosis respiratory failure (acute on chronic), COPD exacerbation Past Medical History COPD, CHF, atherosclerosis, DM, CKD, CAD, diabetic nephropathy, HTN, peripheral artery disease, venous stenosis Pertinent Medications lasix, levemir, prednisone, insulin aspart, glipizide, ferrous sulfate, VIT D-12, mylanta, culturelle, colace, lipitor, morphine, zofran, ativan, D50%-syringe Current Diet Order [facility] (x1 day) Height (Feet) 6 feet Height (Inches) 4.00 inches Weight (Pounds) 330 pounds Weight (Calculated Kilograms) 149.057082 kilograms Patient Weight 149.685 kg Body Mass Index 40.16 kg/m2 (obesity class III) [place]/Adjusted Body Weight IBW: 202 lbs/92 kg; 163% IBW; adj BW (obesity): 234 lb/107 kg Estimated Needs 1582-1046 kcal/day (BEE x 1.2-1.5 for COPD) Grams of Protein per Day 120-184 gm/day (1.3-2 gm/kg IBW for COPD) Fluid Intake Goal Per MD (CKD) Pertinent Labs BG 156 H, BUN 65 H, CRE 2.65 H, ALB 1.6 L (07/24/16), eGFR 26 L, Hgb 8.8 L, Hct 27.7 L, ALP 198 H (07/24/16), Iron 19 L (07/21/16), HDL 40 L (07/21/16), VIT B12 394 WNL (07/21/16), Folate 3.9 WNL (07/21/16 Other Subjective Data Pt seen resting in bed w/ breathing treatment. pt reports that his appetite has not been too good as he feels that the saline solution has altered his taste buds, and everything tastes very salty. Pt also reports that he has had some nausea. Pt reports that he had a BM last night that was very hard and big. Per RN, awaiting MD rounds for further plans, and that pt has been eating well, and even has had snacks at the bedside which family members have brought for him. Per EMR, PO Intakes: 88% average x6 meals. Last BM x1 07/25/16. Amador scale: 18. Per Airset Caster note 07/23/16: skin is poor. 1) Right Distal Anterior Lower Extremity: Diabetic/Neuropathic Ulcer, present on admission. 2) Left Distal Anterior Lower Extremity: Dark discoloration and erythema, present on admission. 3) Right Plantar Foot: Chronic Diabetic/Neuropathic Ulcer, present on admission. 4) Right Dorsal Foot: Closed bulla, now open, present on admission. 5) Right Posterior Medial Distal Lower Extremity: Reddened area, edematous, no odor, scant serous drainage. I/O: 1340/800 (+540 ml) per 12 hours. Problem, Etiology, Signs/Symptoms Altered nutrition related lab values related to endocrine, kidney, and cardiac dysfunction as evidenced by abnormal BG, BUN, CRE, and eGFR lab values and presence of edema. *ongoing Expected Outcomes or Goals * Monitor tolerance of diet, appetite, and PO intakes with goal of pt meeting at least 50% of estimated nutritional needs, labs trending WNL, normal GI function, skin integrity/weight maintenance Dietitian Recommendations * Recommend continuing [facility] diet per w/ 1200 ml fluid restriction (GRAZYNA order) Follow Up Mod Risk: F/U in 3-5 days Addendum: 07/25/16 at [address] Nutrition Consult (Wounds) 07/23/16 5612
--- NOTE | 2016-07-25 11:58 | NUR ---
REFUSED 2 UNITS INSULIN FOR BS OF 167
--- NOTE | 2016-07-25 11:59 | NUR ---
REPORT GIVEN TO LEONOR BROWN
--- NOTE | 2016-07-25 12:05 | NUR ---
INITIAL NOTE RECEIVED REPORT AT BEDSIDE FROM MARTINA LAWSON. PT ALERT AND ORIENTED X4, NO S/S OF DISTRESS, SOB OR COMPLAINT OF PAIN AT THIS TIME, NOTED IV TO RAC SALINE LOCK, NASAL CANULA IN PLACE WITH O2 AT 2 LITERS, DRESSING NOTED TO BLE CLEAN DRY AND INTACT, SAFETY MEASURES IN PLACE, BED IN LOW POSITION AND LOCKED, CALL LIGHT WITH IN REACH, WILL FOLLOW UP
--- NOTE | 2016-07-25 14:09 | NUR ---
>>Returned call from Milagros [facility] provided auth # [id number] FOR [facility] ADMISSION and auth#[id number] for [facility] , ALS ambulance transfer. Kael made aware.
[2016-07-25] MEDS: ACETAMINOPHEN 325 MG TABLET PO PRN (14:13)
[2016-07-25] MEDS: BALSAM PERU/CASTOR OIL 60 GM OINT...G. TP SCH (14:14)
--- NOTE | 2016-07-25 14:48 | NUR ---
Wound Re-Evaluation: Patient was awake, alert, oriented, agreed to wound assessment, and received in a Gary Bed with an Atmos-Air 9000 mattress. Skin is poor. Amador score is an 18. Intrinsic factors that delay wound healing: Diabetes Mellitus, Anemia. Extrinsic factors: decreased mobility. Pleural Fluid Culture and Bronchial Culture results in progress. Patient presents with: 1) Right Distal Anterior Lower Extremity: Diabetic/Neuropathic Ulcer, present on admission. Wound bed has 80% pink tissue, 20% yellow tissue. Yamilet-wound pink. No odor, scant serous drainage. Measures 7.7 cm x 6.0 cm. Recommend continue: Cleanse wound with normal saline. Put moisture barrier cream onto yamilet-wound. Put Venelex ointment onto wound bed. Cover with foam dressing. Wrap with rebeca wrap. Perform wound care daily and as needed for soiling. 2) Left Distal Anterior Lower Extremity: Dark discoloration and erythema, present on admission. No odor, no drainage. Recommend continue: Cleanse site with normal saline. Pat dry. Cover with non-adherent pad, then foam dressing. Wrap with rebeca wrap. Perform site care daily and as needed for soiling. 3) Right Plantar Foot: Chronic Diabetic/Neuropathic Ulcer, present on admission. Wound bed has a 5% hard, black eschar, 95% hard, dry, yellow eschar. Yamilet-wound intact, calloused. No odor, no drainage. Dry, stable. Measures 2.2 cm x 2.7 cm. Recommend continue: Cover with foam dressing. Perform site care daily and as needed for soiling. 4) Right Dorsal Foot: Closed bulla, now open, present on admission. Visible tissue is 100% pink. Yamilet-bullar area intact. No odor, small serous drainage. Measures 2.3 cm x 1.8 cm x 0.4 cm. Recommend: Cleanse wound with normal saline. Put moisture barrier cream onto yamilet-wound. Put Venelex ointment onto wound bed. Cover with foam dressing. Wrap with rebeca wrap. Perform wound care daily and as needed for soiling. 5) Right Posterior Medial Distal Lower Extremity: Reddened area, edematous, no odor, scant serous drainage. Measures 1.5 cm x 1.5 cm. Recommend continue: Cleanse site with normal saline. Pat dry. Cover with foam dressing. Wrap with rebeca wrap. Perform wound care daily and as needed for soiling. Also recommend encourage and assist patient as needed with repositioning every 2 hours with pillow support, and off-load bilateral heels and pressure areas with pillows for pressure redistribution. Use moisture barrier cream on moisture susceptible areas qid and as needed for soiling.
--- NOTE | 2016-07-25 14:55 | NUR ---
WOUND CARE AND REPOSITIONING RIGHT ANTERIOR LOWER EXTREMITY CLEANSED WITH NORMAL SALINE, PAT DRY, VENELEX APPLIED TO WOUND BED AND ZGAURD TO PERIWOUND, COVERED WITH FOAM DRESSING AND WRAPPED WITH ROSALIO WRAP. RIGHT POSTERIOR LOWER EXTREMITY, REDNESS NOTED, SKIN INTACT, COVERED WITH FOAM DRESSING, AND WRAPPED WITH ROSALIO WRAP. RIGHT DORSAL FOOT, BULA BURST, DRAINAGE NOTED, WOUND CLEANSED WITH NORMAL SALINE, PAT DRY, VENELEX APPLIED TO WOUND BED, AND ZGAURD TO PERIWOUND, COVERED WITH FOAL DRESSING. LEFT ANTERIOR LOWER EXTREMITY, AREA INTACT, REDNESS NOTED, COVERED WITH FOAL DRESSING AND WRAPPED WITH ROSALIO WRAP. PT REPOSITIONED WITH PILLOW SUPPORT, TOLERATED WOUND CARE WELL. SAFETY MEASURES IN PLACE, BED IN LOW POSITION AND CALL LIGHT WITH IN REACH.
--- NOTE | 2016-07-25 17:00 | NUR ---
ACCUCHECK 181, COVERED PER SLIDING SCALE
[2016-07-25] MEDS ORDERED: NEPHROVITE, (FOLIC ACID/VITAMIN B COMP W-C 1 TAB) PO ONE (18:00)
[2016-07-25] MEDS: SOD FERRIC GLUC COMPLEX/SUC 125 MG in NS 100 ML IV SCH (18:57)
--- NOTE | 2016-07-25 19:00 | NUR ---
CLOSING NOTE PT LAYING IN BED, NO S/S OF DISTRESS NOTED, NASAL CANULA IN PLACE, DRESSING TO BILATERAL LOWER EXTREMITIES CLEAN DRY AND INTACT, ALL NEEDS ATTENDED TO THROUGHOUT SHIFT, SAFETY MEASURES IN PLACE, BED IN LOW POSITION AND LOCKED, CALL LIGHT WITHIN REACH, WILL GIVE REPORT TO FOLLOWING SHIFT.
--- NOTE | 2016-07-25 20:00 | NUR ---
OPENING NOTE Late entry due to pt. care. Pt. and bedside report rec'd from day shift nurse. Pt. is resting quietly in bed and denies any needs at this time. Educated pt. on safety measures and plan of care. Pt. verbalizes understanding. Safety measures in place. Encouraged pt. to use call light for any needs and assistance to bedside commode. Pt. verbalized understanding. Pending new IV site per day shift nurse. Will cont. to monitor.
[2016-07-25] MEDS: ATORVASTATIN 20 MG TABLET PO SCH (21:27)
[2016-07-25] MEDS: ENOXAPARIN SODIUM 30 MG/0.3 ML SYRINGE SUBCUT SCH (21:28)
--- NOTE | 2016-07-25 21:30 | NUR ---
ACCUCHECK/DUE MEDS Late entry due to pt. care. Due meds administered as ordered. Accucheck done, blood sugar 217; insulin coverage given as ordered. Pt. tolerated well. Encouraged pt. to use call light for any needs. Will continue to monitor.
--- NOTE | 2016-07-25 22:06 | NUR ---
BOWEL MOVEMENT Pt. had (1) hard bowel movement.
[2016-07-26] VITALS (9 sets, daily range): BP systolic 140–162; BP diastolic 60–82; PULSE 74–80; RESP 18–20; TEMP 96.7–98.2; O2SAT 92–99
--- NOTE | 2016-07-26 01:49 | NUR ---
ROUNDS Pt. is resting quietly in bed with no s/s of acute distress. Safety measures in place. Call light on lap. Will continue to monitor.
[2016-07-26] MEDS: IPRATROPIUM/ALBUTEROL SULFATE 3 ML AMPUL.NEB INH SCH ×6 (03:00→23:00)
--- NOTE | 2016-07-26 03:30 | NUR ---
REQUESTED BLANKETS Late entry due to pt. care. Pt. requested blanket. Pt. was assisted to bedside commode by resource nurse, Horace Perdomo RN. Pt. denies any other needs at this time. Safety measures in place. Encouraged pt. to continue using call light for needs and to continue breathing exercises. Pt. verbalized understanding. Will continue to monitor.
[2016-07-26] MEDS: INSULIN ASPART 100 UNITS/ML, 10 ML VIAL (NovoLOG) SUBCUT PRN ×4 (06:13→20:22)
[2016-07-26] MEDS: ACETAMINOPHEN 325 MG TABLET PO PRN ×3 (06:17→17:47)
--- NOTE | 2016-07-26 06:19 | NUR ---
PAIN Pt. c/o "07/27" generalized pain. Pt. medicated with Tylenol as ordered PRN for mild pain. Pt. educated on medication and s/e. Pt. verbalized understanding. Requested (1) banana. Encouraged pt. to use call light for any needs. Call light to right hand. Will continue to monitor.
--- NOTE | 2016-07-26 06:20 | NUR ---
ACCUCHECK Accucheck done, blood sugar 221; insulin administered per sliding scale order. Pt. tolerated well. See EMAR.
--- NOTE | 2016-07-26 07:41 | NUR ---
CLOSING NOTE All needs met throughout shift. Pt. is stable; report given and endorsed care to day shift nurse.
--- NOTE | 2016-07-26 08:00 | NUR ---
OPENING NOTE PT SITTING ON BED SIDE COMMODE, HAD LARGE BOWEL MOVEMENT, ALERT AND ORIENTED X4, NO S/S OF DISTRESS OR PAIN NOTED AT THIS TIME, IV TO RFA 22 G, PATENT AND INTACT, DRESSINGS TO BLE CLEAN, DRY AND INTACT, SAFETY MEASURES IN PLACE, CALL LIGHT WITHIN REACH, WILL FOLLOW UP
[2016-07-26 08:33] LABS: BASOPHILS % (AUTO) 0.4 % (0.0-2.0); EOSINOPHILS # (AUTO) 0.1 K/uL (0.0-0.4); EOSINOPHILS % (AUTO) 1.4 % (0.0-4.0); HEMATOCRIT 28.4 % (36-54); HEMOGLOBIN 9.1 g/dL (14.0-18.0); LYMPHOCYTES # (AUTO) 0.5 K/uL (1.0-5.5); LYMPHOCYTES % (AUTO) 5.7 % (20.5-51.5); MEAN CORPUSCULAR HEMOGLOBIN 27 pg (27-31); MEAN CORPUSCULAR HGB CONC 32 % (32-36); MEAN CORPUSCULAR VOLUME 85 fL (79.0-98.0); MONOCYTES % (AUTO) 11.7 % (1.7-9.3); NEUTROPHILS # (AUTO) 7.3 K/uL (1.8-7.7); NEUTROPHILS % (AUTO) 80.8 % (40.0-70.0); PLATELET COUNT (AUTO) 233 K/uL (130-430); RED BLOOD CELL COUNT(AUTO) 3.34 MIL/uL (4.2-6.2); RED CELL DISTRIBUTION WIDTH 15.7 % (9.0-15.0); WHITE BLOOD COUNT (AUTO) 8.9 K/uL (4.8-10.8)
[2016-07-26] MEDS ORDERED: SOD FERRIC GLUC COMPLEX/SUC 125 MG in NS 100 ML IV SCH (08:45)
[2016-07-26 08:47] LABS: ALBUMIN 1.7 g/dL (3.4-4.8); CALCIUM 7.8 mg/dL (8.4-11.0); CREATININE 2.61 mg/dL (0.55-1.30); PHOSPHORUS 4.2 mg/dL (2.7-4.5); POTASSIUM 4.8 mmol/L (3.5-5.1); TOTAL BILIRUBIN 0.2 mg/dL (0.0-1.0); TOTAL PROTEIN, SERUM 6.9 g/dL (6.4-8.3)
[2016-07-26] MEDS: ACETYLCYSTEINE 10% 4 ML VIAL (RT) INH SCH ×2 (09:00→21:00)
[2016-07-26] MEDS: DOCUSATE SODIUM 250 MG CAPSULE PO SCH ×2 (09:54→20:07)
[2016-07-26] MEDS: ASPIRIN 81 MG TAB.CHEW PO SCH (09:55)
[2016-07-26] MEDS: glipiZIDE XL 5 MG TAB ( GLUCOTROL XL) PO SCH (09:55)
[2016-07-26] MEDS: CARVEDILOL 25 MG TABLET (COREG) PO SCH ×2 (09:56→20:07)
[2016-07-26] MEDS: PREDNISONE 10 MG TABLET PO SCH (09:56)
[2016-07-26] MEDS: FUROSEMIDE 40 MG/4 ML VIAL IVP SCH (09:56)
[2016-07-26] MEDS: NEPHROVITE, (FOLIC ACID/VITAMIN B COMP W-C 1 TAB) PO SCH (09:57)
[2016-07-26] MEDS: CYANOCOBALAMIN 1000 mCg TABLET PO SCH (09:57)
[2016-07-26] MEDS: LACTOBACILLUS RHAMNOSUS GG 1 CAP CAPSULE PO SCH ×2 (09:57→20:06)
[2016-07-26] MEDS: FERROUS SULFATE 325 MG TABLET.DR PO SCH (09:57)
[2016-07-26] MEDS: ISOSORBIDE MONONITRATE 30 MG TAB.ER.24H PO SCH ×2 (09:57→20:07)
[2016-07-26] MEDS: METOLAZONE 5 MG TABLET PO SCH (09:58)
[2016-07-26] MEDS: cefTRIAXone 1 GM in D5W 50 ML IV SCH (09:58)
[2016-07-26] MEDS: OMEPRAZOLE 20 MG CAPSULE.DR (PriLOSEC) PO SCH (09:58)
[2016-07-26] MEDS: BALSAM PERU/CASTOR OIL 60 GM OINT...G. TP SCH (09:59)
--- NOTE | 2016-07-26 10:00 | NUR ---
ROUNDS PT LAYING IN BED, RESTING, NO S/S OF DISTRESS OR PAIN, NEEDS ATTENDED TO, CALL LIGHT WITHIN REACH, WILL FOLLOW UP
--- NOTE | 2016-07-26 10:30 | NUR ---
DC PLANNING: F/U WITH [facility]: Per Kael, he is waiting for dr. Jain, surgeon to return his call whether he will accept the pt. or not." -- CM will f/u
--- NOTE | 2016-07-26 11:30 | NUR ---
ACCUCHECK 216, COVERED PER SLIDING SCALE PT LAYING DOWN RESTING AT THIS TIME.
--- NOTE | 2016-07-26 13:30 | NUR ---
ROUNDS PT LAYING IN BED, RESTING, NO S/S OF DISTRESS NOTED, PT STATES HE HAS NO NEEDS AT THIS TIME, WILL FOLLOW UP.
--- NOTE | 2016-07-26 15:30 | NUR ---
ROUNDS PT SITTING ON SIDE OF BED, PLAYING ON COMPUTER, PATIENT STATES HE HAS NO NEEDS AT THIS TIME, WILL CONTINUE TO MONITOR
--- NOTE | 2016-07-26 17:25 | NUR ---
accjessica, 428, covered with 12 units per sliding scale and Dr gore/ Dr Archuleta paged
[2016-07-26] MEDS: SOD FERRIC GLUC COMPLEX/SUC 125 MG in NS 100 ML IV SCH (17:47)
--- NOTE | 2016-07-26 18:00 | NUR ---
DR gore informed of blood sugar 428 and 12 units of insulin administered. awaiting Dr Archuleta call back .
--- NOTE | 2016-07-26 18:02 | NUR ---
CALLED ATTENDING MD DR MICHAELS, RE: HIGH BS LEVEL. SPOKE TO MISSAEL
--- NOTE | 2016-07-26 18:05 | NUR ---
CALLED ACTIVATED SLUDGE ATTENDANT DR SHARMA, RE: HIGH BS LEVEL (428). SPOKE TO BETZY
--- NOTE | 2016-07-26 18:31 | NUR ---
DR SHARMA CALLED BACK, UPDATED ON PATIENTS BLOOD SUGAR 428. ALSO MENTIONED THAT PATIENT ADMITTED THAT FAMILY HAD BOUGHT HIM DONUTS AND FRIED CHICKEN EARLIER. ACKNOWLEDGED, NOW NEW ORDER RECEIVED.
--- NOTE | 2016-07-26 19:00 | NUR ---
CLOSING NOTE PT LAYING IN BED, RESTING, ALL NEEDS ATTENDED TO THROUGHOUT SHIFT, VSS, NASAL CANULA IN PLACE, BED IN LOW POSITION AND LOCKED, CALL LIGHT PLACED WITHIN REACH, WILL GIVE REPORT TO FOLLOWING SHIFT.
--- NOTE | 2016-07-26 19:54 | NUR ---
OPENING NOTE Pt. and bedside report received from day shift nurse. Pt. is resting quietly in bed and in stable condition. Requested to let [him] "get some rest." Plan of care and safety measures discussed with pt. and how to use call light for any needs. Pt. verbalized understanding. Will continue to monitor.
--- NOTE | 2016-07-26 20:00 | NUR ---
INCENTIVE SPIROMETER Late entry due to pt. care. Educated pt. on deep breathing exercises using incentive spirometer at bedside. Pt. is refusing to return demonstration at this time but is able to verbalize its significance. Will continue to encourage.
[2016-07-26] MEDS: ENOXAPARIN SODIUM 30 MG/0.3 ML SYRINGE SUBCUT SCH (20:06)
[2016-07-26] MEDS: ATORVASTATIN 20 MG TABLET PO SCH (20:07)
[2016-07-26] MEDS: ONDANSETRON HCL 4 MG/2 ML VIAL IVP PRN (20:14)
--- NOTE | 2016-07-26 20:24 | NUR ---
ACCUCHECK/DUE MEDS Due meds administered as ordered. Blood sugar 367; levemir one time dose administered and insulin coverage given per sliding scale order. Encouraged pt. to eat snack throughout the night. Will continue to monitor.
--- NOTE | 2016-07-26 22:52 | NUR ---
PAGED RT Pt. requesting RT for his CPAP. Paged Talat, RT who said he will go see patient.
[2016-07-27] VITALS (7 sets, daily range): BP systolic 142–168; BP diastolic 61–76; PULSE 78–84; RESP 18–20; TEMP 96.6–98.4; O2SAT 94–97
--- NOTE | 2016-07-27 00:22 | NUR ---
ROUNDS Pt. is resting quietly in bed with CPAP on; no s/s of acute distress. Safety measures in place. Call light to right hand side. Will continue to monitor.
--- NOTE | 2016-07-27 01:22 | NUR ---
ROUNDS Pt. requested snack from his personal belongings in fridge; pt. requested dinner roll. Pt. denies any other needs at this time. Safety measures in place. Encouraged pt. to use call light for any needs. Will continue to monitor.
[2016-07-27] MEDS: IPRATROPIUM/ALBUTEROL SULFATE 3 ML AMPUL.NEB INH SCH ×6 (03:00→23:00)
--- NOTE | 2016-07-27 04:09 | NUR ---
ROUNDS Pt. is resting quietly in bed with no s/s of acute distress. Safety measures in place. Call light to right hand. Will continue to monitor.
--- NOTE | 2016-07-27 04:39 | NUR ---
REQUESTED FOR LIGHTS TO BE TURNED OFF Pt. used call light and requested for lights and door to be closed. Pt. denies any other needs at this time. Safety measures in place. Encouraged pt. to use call light for needs. Pt. verbalized understanding. Will continue to monitor.
[2016-07-27] MEDS: INSULIN ASPART 100 UNITS/ML, 10 ML VIAL SUBCUT SCH ×3 (07:00→17:22)
[2016-07-27 07:20] LABS: BASOPHILS % (AUTO) 0.2 % (0.0-2.0); EOSINOPHILS # (AUTO) 0.1 K/uL (0.0-0.4); EOSINOPHILS % (AUTO) 1.3 % (0.0-4.0); HEMATOCRIT 27.9 % (36-54); HEMOGLOBIN 9.1 g/dL (14.0-18.0); LYMPHOCYTES # (AUTO) 0.6 K/uL (1.0-5.5); LYMPHOCYTES % (AUTO) 5.3 % (20.5-51.5); MEAN CORPUSCULAR HEMOGLOBIN 28 pg (27-31); MEAN CORPUSCULAR HGB CONC 33 % (32-36); MEAN CORPUSCULAR VOLUME 85 fL (79.0-98.0); MONOCYTES # (AUTO) 1.2 K/uL (0.0-1.0); MONOCYTES % (AUTO) 11.3 % (1.7-9.3); NEUTROPHILS # (AUTO) 8.8 K/uL (1.8-7.7); NEUTROPHILS % (AUTO) 81.9 % (40.0-70.0); PLATELET COUNT (AUTO) 215 K/uL (130-430); RED BLOOD CELL COUNT(AUTO) 3.26 MIL/uL (4.2-6.2); RED CELL DISTRIBUTION WIDTH 15.1 % (9.0-15.0); WHITE BLOOD COUNT (AUTO) 10.7 K/uL (4.8-10.8)
[2016-07-27] MEDS: ACETYLCYSTEINE 10% 4 ML VIAL (RT) INH SCH ×2 (07:28→21:00)
--- NOTE | 2016-07-27 07:47 | NUR ---
CLOSING NOTES Pt. and bedside report given to day shift nurse. Pt. is stable with no significant changes. All needs met throughout shift. Safety measures in place. Novolog held due to orders to administer before meal, endorsed care to day shift nurse.
[2016-07-27 07:48] LABS: CALCIUM 8.1 mg/dL (8.4-11.0); CREATININE 2.59 mg/dL (0.55-1.30); PHOSPHORUS 3.8 mg/dL (2.7-4.5); POTASSIUM 4.5 mmol/L (3.5-5.1)
--- NOTE | 2016-07-27 08:37 | NUR ---
OPENING NOTE RECEIVED REPORT FROM NIGHT NURSE. PATIENT IS RESTING COMFORTABLY IN BED WITH NO COMPLAINTS OF PAIN, NO NOTED DISTRESS, DISCOMFORT OR SOB. PATIENT IS ALERT AND ORIENTED AND ABLE TO COMMUNICATE NEEDS TO STAFF. PATIENT IS BEDREST AND IS EDUCATED NOT TO GET UP WITHOUT ASSISTANCE. CALL LIGHT IS WITHIN REACH AND BED IS IN LOWEST POSITION. WILL CONTINUE TO MONITOR.
--- NOTE | 2016-07-27 08:40 | NUR ---
DC PLANNING: F/U with Kael at [facility] xfer ctr # [phone] opt#3 stated " per [facility] medical team ,Thoracic surgeon and Dairy Husbandman : " the pt. is not ready for the intervention. The Dairy Husbandman recommended to R/O the possible cause of hemorrhagic pleural effusion including TB and to place chest tube. If the issue is not resolved , he asked to call [facility] back." -- Dr. Salas made aware. Addendum: 07/27/16 at 1233 by Cindy CHEN DC order transfer to SNF when bed available. Met with patient at bedside along with LISA Yuen, patient not happy with care at [facility] and wants to go to another SNF. LISA Yuen will follow up with . DCP will present contracted list of SNF to patient. Addendum: 07/27/16 at 1424 by Wilfrid Pereira RN >> S/w Kael, requesting the medical team / [facility] Pulmo to speak with dr. Nguyen. Per the . the pt can not be discharged and needs to have the procedure done." Kael will present the case to his pulmo to call dr. Nguyen at her provided cell number. Addendum: 07/27/16 at 1505 by Wilfrid Pereira RN >> F/U on contracted hospital and snf list from Julie. LAZO and requested the list to be faxed akbar. Per her voice message there is weekend provisioning specialist coverage from 7a to 530 pm to contact ZOHREH at [phone]. >> Per Bisi, dir : to f/u on [facility] reconsideration from their medical team and grounds maintenance manager . and to at the same time to refer the pt. to Ins .contracted facility. The referral is pending at this time DT the list is not available.
[2016-07-27] MEDS: IPRATROPIUM/ALBUTEROL SULFATE 3 ML AMPUL.NEB INH PRN (09:20)
[2016-07-27] MEDS: glipiZIDE XL 5 MG TAB ( GLUCOTROL XL) PO SCH (09:29)
[2016-07-27] MEDS: CARVEDILOL 25 MG TABLET (COREG) PO SCH ×2 (09:29→20:42)
[2016-07-27] MEDS: FERROUS SULFATE 325 MG TABLET.DR PO SCH (09:29)
[2016-07-27] MEDS: ISOSORBIDE MONONITRATE 30 MG TAB.ER.24H PO SCH ×2 (09:29→20:43)
[2016-07-27] MEDS: LACTOBACILLUS RHAMNOSUS GG 1 CAP CAPSULE PO SCH ×2 (09:30→20:42)
[2016-07-27] MEDS: CYANOCOBALAMIN 1000 mCg TABLET PO SCH (09:30)
[2016-07-27] MEDS: NEPHROVITE, (FOLIC ACID/VITAMIN B COMP W-C 1 TAB) PO SCH (09:30)
[2016-07-27] MEDS: ASPIRIN 81 MG TAB.CHEW PO SCH (09:30)
[2016-07-27] MEDS: PREDNISONE 10 MG TABLET PO SCH (09:30)
[2016-07-27] MEDS: DOCUSATE SODIUM 250 MG CAPSULE PO SCH ×2 (09:30→20:41)
[2016-07-27] MEDS: METOLAZONE 5 MG TABLET PO SCH (09:31)
[2016-07-27] MEDS: OMEPRAZOLE 20 MG CAPSULE.DR (PriLOSEC) PO SCH (09:31)
[2016-07-27] MEDS: FUROSEMIDE 40 MG/4 ML VIAL IVP SCH ×2 (09:32→20:40)
[2016-07-27] MEDS: ACETAMINOPHEN 325 MG TABLET PO PRN ×2 (09:32→17:28)
--- NOTE | 2016-07-27 11:34 | NUR ---
NOTE PATIENT'S BS WAS 143 AND NO COVERAGE WAS NEEDED AND THE PATIENT REFUSED THE NOVOLOG 2 UNITS. PATIENT STATED THAT HEADACHE STILL HURTS AND DR MICHAELS WAS CALLED AND NEW ORDERE FOR NORCO 5/325MG PO Q4HRS PRN WAS NOTED AND CARRIED OUT. PATIENT IS AWARE AND IS WAITING FOR PHARMACY TO RELEASE THE NORCO. NO NOTED SOB AT THIS TIME. BED IS IN LOWEST POSITION AND CALL LIGHT IS WITHIN REACH. WILL CONTINUE TO MONITOR.
--- NOTE | 2016-07-27 11:52 | NUR ---
DC PLANNING: Informed Milagros's at [facility] # [phone] of the [facility] recommendation and Dr. Salas ordered pt to returning back to [facility] auth # [id number] ,[facility] auth #[id number] >> Notified dr. Nguyen of the [facility] recommendations and dr. Salas order to dc pt. back to [facility]. Dr. Nguyen stated " the pt. can not be discharged, he needs thoracic surgery. " Dr. Salas made aware. Addendum: 07/27/16 at 1338 by Wilfrid Pereira RN >> Dr. Salas ordered pt. transferring to insurance net work. Milagros at [facility] is sending the contracted hp list and recommended SILVIO Al and Niki as indicated by the md. She stated to use the same auth for [facility] provided before. Hospital auth#[id number], ambulance auth# [id number] for [facility], BLS status, needs oxygen during transportation. Addendum: 07/27/16 at 1350 by Wilfrid Pereira RN >> Together with Pinky, SHEILA met with the pt. at bed side, informed him of the POC. The case is not accepted at [facility] at this time. Informed that he may be tramsfer to another contracted which the new search will begin again. He is aware to be in the hp a little longer. The pt. is agreeable with the plan sofar. He stated " his is greatful to have dr. Salas taking care of him" . The pt. mentioned that in the event that he is ordered to go back to [facility], he is refused to go back, d/t nursing care concerns. He is willing to change the snf later later on.
--- NOTE | 2016-07-27 14:10 | NUR ---
Wound Re-Evaluation: Patient was awake, alert, oriented, agreed to wound assessment, and received in a [place] Bed with an Atmos-Air 9000 mattress. Skin is poor. Amador score is an 18. Intrinsic factors that delay wound healing: Diabetes Mellitus, Anemia. Extrinsic factors: decreased mobility. Pleural Fluid Culture and Bronchial Culture results in progress. Patient presents with: 1) Right Distal Anterior Lower Extremity: Diabetic/Neuropathic Ulcer, present on admission. Wound bed has 95% pink tissue, 5% red tissue. Yamilet-wound pink with flaky yellow skin. No odor, scant yellow drainage. Recommend continue: Cleanse wound with normal saline. Put moisture barrier cream onto yamilet-wound. Put Venelex ointment onto wound bed. Cover with foam dressing. Wrap with rebeca wrap. Perform wound care daily and as needed for soiling. 2) Left Distal Anterior Lower Extremity: Decreased dark discoloration, and pink, present on admission. No odor, no drainage. Recommend continue: Cleanse site with normal saline. Pat dry. Apply moisture barrier cream. Cover with non-adherent pad, then foam dressing. Wrap with rebeca wrap. Perform site care daily and as needed for soiling. 3) Right Plantar Foot: Chronic Diabetic/Neuropathic Ulcer, present on admission. Wound bed has a 5% hard, black eschar, 95% hard, dry, yellow eschar. Yamilet-wound intact, calloused. No odor, no drainage. Dry, stable. Recommend continue: Cover with foam dressing. Perform site care daily and as needed for soiling. 4) Right Dorsal Foot: Wound bed unseen, closed bulla with serous fluid present. Yamilet-wound intact, calloused. No odor, no drainage. Dry, stable. Recommend: No dressing needed. Monitor site q shift, and contact wound care if bulla opens. 5) Right Posterior Medial Distal Lower Extremity: Raoul/red discoloration, edematous, no odor, scant serous drainage. Recommend continue: Cleanse site with normal saline. Pat dry. Cover with foam dressing. Wrap with rebeca wrap. Perform wound care daily and as needed for soiling. Also recommend encourage and assist patient as needed with repositioning every 2 hours with pillow support, and off-load bilateral heels and pressure areas with pillows for pressure redistribution. Use moisture barrier cream on moisture susceptible areas qid and as needed for soiling.
[2016-07-27] MEDS: HYDROcodone/ACETAMIN 5-325 MG TAB (NORCO/ VICODIN) PO PRN (14:18)
[2016-07-27] MEDS: BALSAM PERU/CASTOR OIL 60 GM OINT...G. TP SCH (14:19)
--- NOTE | 2016-07-27 14:29 | NUR ---
NOTE PATIENT HAD COMPLAINTS OF PAIN AND NORCO WAS GIVEN. WOUND CARE WAS PROVIDED TO BILATERAL LOWER LEGS AND PATIENT TOLERATED IT WELL. PATIENT COMPLAINED OF SOB AND ASKED TO BE PLACED ON BIPAP AND RT WAS MADE AWARE AND HE WAS PLACED ON BIPAP. CALL LIGHT IS WITHIN REACH AND WILL CONTINUE TO MONITOR.
--- NOTE | 2016-07-27 17:00 | NUR ---
NOTE PATIENT'S BS WAS 226 AND 4 UNITS OF NOVOLOG WAS GIVEN, 2 UNITS OF NOVOLOG SCHEDULED WAS GIVEN WITH ANOTHER RN TO WITNESS. PATIENT COMPLAINED OF A HEADACHE AND TYLENOL WAS GIVEN. BED IS IN LOWEST POSITION AND CALL LIGHT IS WITHIN REACH. WILL CONTINUE TO MONITOR.
[2016-07-27] MEDS: INSULIN ASPART 100 UNITS/ML, 10 ML VIAL (NovoLOG) SUBCUT PRN (17:23)
[2016-07-27] MEDS: SOD FERRIC GLUC COMPLEX/SUC 125 MG in NS 100 ML IV SCH (17:23)
--- NOTE | 2016-07-27 18:49 | NUR ---
CLOSING NOTE PATIENT IS RESTING IN BED COMFORTABLY WITH MILD COMPLAINTS OF PAIN, BUT MEDICATION WAS JUST GIVEN, ZOFRAN WILL BE GIVEN WELL. NO NOTED DISTRESS OR SOB. BED IS IN LOWEST POSITION AND CALL LIGHT IS WITHIN REACH. WILL GIVE REPORT TO NIGHT NURSE
[2016-07-27] MEDS: ONDANSETRON HCL 4 MG/2 ML VIAL IVP PRN (19:16)
--- NOTE | 2016-07-27 20:00 | NUR ---
pt.assessed.v/s assessed:values w/in normal limits.pt.presents stable status.no c/ pain,nausea.slight sob upon excertion. iv access line:location:rt.forearm.ivpb iron infusing.call light w/in pt's reach.o2 breathing pattern/character w/in normal limits.no distress/discomfort manifested.
[2016-07-27] MEDS: ENOXAPARIN SODIUM 30 MG/0.3 ML SYRINGE SUBCUT SCH (20:43)
[2016-07-27] MEDS: ATORVASTATIN 20 MG TABLET PO SCH (20:43)
--- NOTE | 2016-07-27 21:00 | NUR ---
2100p medications administered:incuded:lasix;60mg ivp.i have reiterated 2 the pt.of the lasix and the subsequent urinating sequence.urinals x2 placed @w/in pt's reach.call light placed w/in pt's reach.
--- NOTE | 2016-07-27 22:00 | NUR ---
pt.assessed.pt.presents quiescent affect;calm,asleep.urinal emptied.breathing pattern;calm.no distress/discomfort manifested.
--- NOTE | 2016-07-28 | NUR ---
pt.assessed.pt.presents quiescent affect;calm,asleep.no distress/discomfort manifested.o2 pattern.character w/in normal limits.call light w/in pt's reach.
--- NOTE | 2016-07-28 02:00 | NUR ---
pt.assessed.pt.presents quiescent affect;calm,asleep.call light placed w/in pt's reach.
[2016-07-28] MEDS: IPRATROPIUM/ALBUTEROL SULFATE 3 ML AMPUL.NEB INH SCH ×6 (03:00→23:00)
--- NOTE | 2016-07-28 04:00 | NUR ---
pt.assessed.pt.presents quiescent affect;calm,asleep.v/s assessed.blankets applied 2 pt.no distress/discomfort. breahting pattern:calm;w/in normal limits.call light w/in pt'reach.
[2016-07-28 05:07] VITALS: BP 144/65; PULSE 78; RESP 18; TEMP 96.8; O2SAT 92
--- NOTE | 2016-07-28 05:58 | NUR ---
cxr 2 b performed @this hour.pt.assessed.blood glucose:170mg/dl,urinal emtied.no request@this hour. call light placed w/in pt's reach. Addendum: 07/28/16 at 0606 by Jair Hutchinson RN urinal emptied.
[2016-07-28] MEDS: ONDANSETRON HCL 4 MG/2 ML VIAL IVP PRN (06:28)
[2016-07-28] MEDS: INSULIN ASPART 100 UNITS/ML, 10 ML VIAL SUBCUT SCH ×3 (06:34→18:04)
[2016-07-28] MEDS: INSULIN ASPART 100 UNITS/ML, 10 ML VIAL (NovoLOG) SUBCUT PRN ×3 (06:36→21:41)
--- NOTE | 2016-07-28 06:41 | NUR ---
pt.requested josep barfield, this am.i ahve administered the 2 medications.i have administered novolog:total 4 units;2 / 's order 2 units / sliding scale.no other request.urinal emptied.no other request.
[2016-07-28 06:58] LABS: BASOPHILS % (AUTO) 0.1 % (0.0-2.0); EOSINOPHILS # (AUTO) 0.1 K/uL (0.0-0.4); EOSINOPHILS % (AUTO) 1.3 % (0.0-4.0); HEMATOCRIT 27.4 % (36-54); HEMOGLOBIN 8.6 g/dL (14.0-18.0); LYMPHOCYTES # (AUTO) 0.6 K/uL (1.0-5.5); LYMPHOCYTES % (AUTO) 6.4 % (20.5-51.5); MEAN CORPUSCULAR HEMOGLOBIN 27 pg (27-31); MEAN CORPUSCULAR HGB CONC 31 % (32-36); MEAN CORPUSCULAR VOLUME 87 fL (79.0-98.0); MONOCYTES # (AUTO) 1.1 K/uL (0.0-1.0); NEUTROPHILS # (AUTO) 7.9 K/uL (1.8-7.7); NEUTROPHILS % (AUTO) 81.2 % (40.0-70.0); PLATELET COUNT (AUTO) 215 K/uL (130-430); RED BLOOD CELL COUNT(AUTO) 3.15 MIL/uL (4.2-6.2); RED CELL DISTRIBUTION WIDTH 15.7 % (9.0-15.0); WHITE BLOOD COUNT (AUTO) 9.7 K/uL (4.8-10.8)
[2016-07-28 07:25] LABS: ALBUMIN 1.5 g/dL (3.4-4.8); CALCIUM 8.2 mg/dL (8.4-11.0); CREATININE 2.47 mg/dL (0.55-1.30); POTASSIUM 4.6 mmol/L (3.5-5.1); TOTAL BILIRUBIN 0.2 mg/dL (0.0-1.0); TOTAL PROTEIN, SERUM 6.6 g/dL (6.4-8.3)
--- NOTE | 2016-07-28 07:29 | NUR ---
AM ROUNDS Pt sitting up in bed. Denies pain at this time...A/O..HL to RFA flushes well...BLE with noted cellulitis and documented wound that is covered...Pt aware of fluid restriction of 1200 ml/24*....Call light/phone w/in reach...Will cont to monitor
--- NOTE | 2016-07-28 08:15 | NUR ---
REFUSED BLOOD PRESSURE TO BE TAKEN AT THIS TIME PT ANGRY..STATED "SOMEONE JUST CHECKED IT" LAST BP CHECK WAS AT 0500 THIS MORNING...WILL RE-TRY AGAIN LATER
--- NOTE | 2016-07-28 08:50 | NUR ---
PATIENT REFUSED LASIX IVP AT THIS TIME DESPITE EXPLANATION OF BENEFITS OF THE MEDICATION.
[2016-07-28] MEDS: ACETYLCYSTEINE 10% 4 ML VIAL (RT) INH SCH ×2 (09:00→19:49)
[2016-07-28] MEDS: BALSAM PERU/CASTOR OIL 60 GM OINT...G. TP SCH (09:00)
--- NOTE | 2016-07-28 09:21 | NUR ---
BP OBTAINED BY COVERING RN..182/80, 82 REFUSED ALL MEDICATION AT THIS TIME..PT DOES NOT WANT TO BE DISTURBED...WILL ATTEMPT TO GIVE PAIN MEDICATION LATER..PER COVERING NURSE PT REFUSED IV MEDICATION AT THIS TIME ALSO
[2016-07-28 09:23] VITALS: BP 182/80; PULSE 82
[2016-07-28] MEDS: OMEPRAZOLE 20 MG CAPSULE.DR (PriLOSEC) PO SCH (10:07)
[2016-07-28] MEDS: FERROUS SULFATE 325 MG TABLET.DR PO SCH (10:07)
[2016-07-28] MEDS: PREDNISONE 10 MG TABLET PO SCH (10:07)
[2016-07-28] MEDS: ACETAMINOPHEN 325 MG TABLET PO PRN (10:07)
[2016-07-28] MEDS: METOLAZONE 5 MG TABLET PO SCH (10:08)
[2016-07-28] MEDS: ISOSORBIDE MONONITRATE 30 MG TAB.ER.24H PO SCH ×2 (10:08→21:34)
[2016-07-28] MEDS: LACTOBACILLUS RHAMNOSUS GG 1 CAP CAPSULE PO SCH ×2 (10:08→21:21)
[2016-07-28] MEDS: CARVEDILOL 25 MG TABLET (COREG) PO SCH ×2 (10:08→21:22)
[2016-07-28] MEDS: glipiZIDE XL 5 MG TAB ( GLUCOTROL XL) PO SCH (10:09)
[2016-07-28] MEDS: NEPHROVITE, (FOLIC ACID/VITAMIN B COMP W-C 1 TAB) PO SCH (10:09)
[2016-07-28] MEDS: ASPIRIN 81 MG TAB.CHEW PO SCH (10:09)
[2016-07-28] MEDS: CYANOCOBALAMIN 1000 mCg TABLET PO SCH (10:09)
--- NOTE | 2016-07-28 10:15 | NUR ---
DR BAILEY AT BEDSIDE
--- NOTE | 2016-07-28 10:17 | NUR ---
PT C/O HEADACHE...TYLENOL GIVEN PT AGREED WITH TAKING ALL MORNING MEDS AND FOR COVERING NURSE TO ADMINISTER DUE LASIX
[2016-07-28] MEDS: DOCUSATE SODIUM 250 MG CAPSULE PO SCH ×2 (10:20→21:21)
[2016-07-28] MEDS: FUROSEMIDE 40 MG/4 ML VIAL IVP SCH ×2 (10:20→21:35)
[2016-07-28 12:00] VITALS: BP 131/69; PULSE 79; RESP 21; TEMP 98.7; O2SAT 89
[2016-07-28] MEDS: IPRATROPIUM/ALBUTEROL SULFATE 3 ML AMPUL.NEB INH PRN (12:50)
--- NOTE | 2016-07-28 14:09 | NUR ---
PATIENT RESTING: Patient resting quietly. No acute distress noted. Vital signs within normal range.
--- NOTE | 2016-07-28 15:39 | NUR ---
PT SITTING UP IN BED USING PERSONAL COMPUTER PT STABLE....DENIES PAIN...WILL CONT TO MONITOR
[2016-07-28 16:00] VITALS: BP 157/79; PULSE 94; RESP 21; TEMP 98.9; O2SAT 90
[2016-07-28] MEDS: HYDROcodone/ACETAMIN 5-325 MG TAB (NORCO/ VICODIN) PO PRN ×2 (16:33→21:34)
--- NOTE | 2016-07-28 16:33 | NUR ---
CM DC PLANNING S/W DR. BAILEY ABOUT WHETHER Pt IS STABLE FOR TRANSFER TO SNF PER DC ORDER BY DR. MICHAELS ON 07/27/16. ADDITIONALLY, PER DR. BAILEY, Pt HAS INCREASING PLEURAL EFFUSION ON RIGHT SIDE THAT HAS LOCULATED FLUID COMPONENTS THAT ARE NOT ABLE TO BE ASPIRATED PER THORACENTESIS PROCEDURE. Pt HAD AFB SPUTUM RETURNED X 1 NEGATIVE; DR. BAILEY ORDERED TB GOLD TEST TODAY TO R/O TB SOURCE FOR LOCULATED FLUID. SPOKE WITH DR. MICHAELS ABOUT DC ORDER TO SNF; LISA/BERNY TO WORK WITH RN/NAGI ABOUT HOW TO DC 07/27/16 DC ORDER; AND CM WILL ENTER NEW DC PLANNING ORDER TO [facility] PER DR. BAILEY'S REQUEST. [facility] WILL NOT ACCEPT Pt SO, LISA/AUGUSTO WILL BE ASKED TO FOLLOW-UP TOMORROW ABOUT INITIATING TRANSFER REFERRAL TO [facility] PER WEEKDAY LISA/DERECK DC PLANNING NOTES OF 07/27/16.
[2016-07-28] MEDS ORDERED: FUROSEMIDE 40 MG/4 ML VIAL IVP ONE (16:45)
[2016-07-28] MEDS: SOD FERRIC GLUC COMPLEX/SUC 125 MG in NS 100 ML IV SCH (18:44)
--- NOTE | 2016-07-28 18:50 | NUR ---
ROUNDS PT STABLE...LYING IN BED TALKING ON CELLPHONE....ALL NEEDS ATTENDED TOO...WILL CONT TO MONITOR
--- NOTE | 2016-07-28 20:00 | NUR ---
OPENING NOTES PATIENT IS A/OX4. NO SIGNS OF DISTRESS. BREATHING IS NON LABORED. O2 IS NOTED AND IS FLOWING. PATIENT HAS NO COMPLAINTS OF PAIN. IV SITE IS PATENT AND SHOWS NO SIGNS OF COMPLICATIONS. PATIENT INSTRUCTED TO CALL FOR ASSISTANCE. PATIENT REFUSED BED ALARM. WILL CONTINUE TO MONITOR.
[2016-07-28] MEDS ORDERED: FUROSEMIDE 40 MG/4 ML VIAL IVP SCH (21:00)
[2016-07-28] MEDS: ATORVASTATIN 20 MG TABLET PO SCH (21:19)
--- NOTE | 2016-07-28 21:30 | NUR ---
SPOKE TO DR. MICHAELS REGARDING CLARIFICATION OF ORDERS FOR NEW ORDER OF LASIX 40MG BID AND EXISTING ORDER OF 60MG BID. WILL D/C ORDER OF 40MG BID PER MD.
[2016-07-28] MEDS: ENOXAPARIN SODIUM 30 MG/0.3 ML SYRINGE SUBCUT SCH (21:32)
[2016-07-28 21:52] VITALS: BP 160/70; PULSE 81; RESP 16; TEMP 98.7; O2SAT 92
--- NOTE | 2016-07-28 22:00 | NUR ---
ROUNDS PATIENT IS IN BED RESTING. NO SIGNS OF DISTRESS. BREATHING IS NON LABORED. CALL LIGHT IS WITHIN REACH. SAFETY MEASURES ARE IN PLACE. WILL CONTINUE TO MONITOR.
--- NOTE | 2016-07-29 00:30 | NUR ---
ROUNDS PATIENT IS IN BED SLEEPING. NO SIGNS OF DISTRESS. BREATHING IS NON LABORED. CALL LIGHT IS WITHIN REACH. SAFETY MEASURES ARE IN PLACE. WILL CONTINUE TO MONITOR.
[2016-07-29 01:11] VITALS: BP 150/73; PULSE 82; RESP 19; TEMP 96.5; O2SAT 86
[2016-07-29] MEDS: ACETAMINOPHEN 325 MG TABLET PO PRN ×2 (03:09→16:20)
--- NOTE | 2016-07-29 03:15 | NUR ---
PAIN/ANXIETY PATIENT HAD COMPLAINTS OF A HEADACHE AND ANXIETY. WILL GIVE PRN PAIN MEDICATION AND ANXIETY.
[2016-07-29] MEDS: LORazepam 1 MG TABLET PO PRN (03:20)
[2016-07-29] MEDS: IPRATROPIUM/ALBUTEROL SULFATE 3 ML AMPUL.NEB INH SCH ×6 (03:25→23:30)
--- NOTE | 2016-07-29 03:26 | NUR ---
RT AT BEDSIDE
[2016-07-29 03:52] VITALS: BP 144/81; PULSE 73; RESP 18; TEMP 96.6; O2SAT 89
--- NOTE | 2016-07-29 05:03 | NUR ---
ROUNDS PATIENT IS IN BED SLEEPING. NO SIGNS OF DISTRESS. BREATHING IS NON LABORED. CALL LIGHT IS WITHIN REACH. BED ALARM IS ON. WILL CONTINUE TO MONITOR.
[2016-07-29] MEDS: HYDROcodone/ACETAMIN 5-325 MG TAB (NORCO/ VICODIN) PO PRN ×2 (05:22→22:02)
--- NOTE | 2016-07-29 06:00 | NUR ---
ROUNDS PATIENT WAS GIVEN A BANANA FROM PATIENT BAG IN REFRIGERATOR.
[2016-07-29] MEDS: INSULIN ASPART 100 UNITS/ML, 10 ML VIAL SUBCUT SCH ×3 (06:17→17:00)
--- NOTE | 2016-07-29 06:40 | NUR ---
CLOSING NOTES PATIENT IS IN BED RESTING. BREATHING IS NON LABORED. PATIENT SHOWS NO SIGNS OF DISTRESS. IV IS PATENT AND SHOWS NO SIGN OF COMPLICATIONS. CALL LIGHT IS WITHIN REACH. SAFETY MEASURES ARE IN PLACE. PATIENT REEDUCATED ON FLUID RESTRICTIONS. PATIENT VERBALIZED UNDERSTANDING. WILL ENDORSE TO THE MORNING NURSE.
[2016-07-29 07:28] LABS: CALCIUM 7.8 mg/dL (8.4-11.0); CREATININE 2.33 mg/dL (0.55-1.30); POTASSIUM 4.4 mmol/L (3.5-5.1)
--- NOTE | 2016-07-29 07:35 | NUR ---
AM ROUNDS Pt sitting up in bed. Denies pain at this time...A/O..HL to RFA flushes well...BLE with noted cellulitis...Pt aware of fluid restriction of 1200 ml/24*....Pt on 2L Oxygen via N/C...Bowel sounds active...Call light/phone w/in reach...Will cont to monitor
[2016-07-29] MEDS: BALSAM PERU/CASTOR OIL 60 GM OINT...G. TP SCH (09:00)
[2016-07-29] MEDS: ACETYLCYSTEINE 10% 4 ML VIAL (RT) INH SCH ×2 (09:00→21:00)
[2016-07-29] MEDS: CYANOCOBALAMIN 1000 mCg TABLET PO SCH (09:27)
[2016-07-29] MEDS: DOCUSATE SODIUM 250 MG CAPSULE PO SCH ×2 (09:27→22:03)
[2016-07-29] MEDS: ISOSORBIDE MONONITRATE 30 MG TAB.ER.24H PO SCH ×2 (09:27→22:03)
[2016-07-29] MEDS: OMEPRAZOLE 20 MG CAPSULE.DR (PriLOSEC) PO SCH (09:27)
[2016-07-29] MEDS: FERROUS SULFATE 325 MG TABLET.DR PO SCH (09:27)
[2016-07-29] MEDS: METOLAZONE 5 MG TABLET PO SCH (09:28)
[2016-07-29] MEDS: ASPIRIN 81 MG TAB.CHEW PO SCH (09:28)
[2016-07-29] MEDS: CARVEDILOL 25 MG TABLET (COREG) PO SCH ×2 (09:28→22:01)
[2016-07-29] MEDS: LACTOBACILLUS RHAMNOSUS GG 1 CAP CAPSULE PO SCH ×2 (09:28→22:03)
[2016-07-29] MEDS: NEPHROVITE, (FOLIC ACID/VITAMIN B COMP W-C 1 TAB) PO SCH (09:29)
[2016-07-29] MEDS: PREDNISONE 10 MG TABLET PO SCH (09:29)
--- NOTE | 2016-07-29 09:30 | NUR ---
PT REQUESTING BREATHING TREATMENT...RT CALLED
[2016-07-29 09:35] VITALS: BP 143/68; PULSE 79
[2016-07-29] MEDS: IPRATROPIUM/ALBUTEROL SULFATE 3 ML AMPUL.NEB INH PRN (09:35)
--- NOTE | 2016-07-29 09:35 | NUR ---
RT AT BEDSIDE FOR BREATHING TREATMENT
[2016-07-29] MEDS: FUROSEMIDE 40 MG/4 ML VIAL IVP SCH ×2 (10:10→22:04)
--- NOTE | 2016-07-29 10:10 | NUR ---
Rounds to patient. Given lasix. Patient offered bathroom via commode. Says he does not need to go now. Will call when he has to go to restroom. Made sure two urinals readily available.
[2016-07-29] MEDS: glipiZIDE XL 5 MG TAB ( GLUCOTROL XL) PO SCH (11:52)
[2016-07-29] MEDS: cloNIDine HCL 0.1 MG TABLET PO PRN (11:53)
[2016-07-29 12:00] VITALS: BP 179/79; PULSE 81; RESP 21; TEMP 96.6; O2SAT 89
--- NOTE | 2016-07-29 12:13 | NUR ---
PT REQUESTING TO WAIT ON NOVOLOG, PT UNCERTAIN IF HE IS GOING TO EAT OR NOT PT DOES NOT HAVE MUCH OF AN APPETITE. WILL HOLD NOVOLOG FOR NOW..
--- NOTE | 2016-07-29 14:15 | NUR ---
ASSISTED PT TO BSC..LARGE FORMED BM PT REFUSED TO HAVE GARDEN MACHINERY MECHANIC OR NURSE DO CARON-CARE, PT STATED "I WILL DO IT"...HAND TOWEL GIVEN...UPPER BACK CLEANED WITH WARM WATER..ASSISTED PT BACK TO BED..PT SITTING UP AT EDGE OF BED USING COMPUTER...WILL CONT TO MONITOR
--- NOTE | 2016-07-29 14:16 | NUR ---
DYSPNEA ON EXERTION PT REMOVED OXYGEN PRIOR TO USING BSC...PT WAS WINDED AFTER ALL THE EXERTION TO AND FROM BSC...NC REPLACED AND OXYGEN AT 3L...ADA KOLB
[2016-07-29] MEDS: INSULIN ASPART 100 UNITS/ML, 10 ML VIAL (NovoLOG) SUBCUT PRN (14:39)
--- NOTE | 2016-07-29 14:42 | NUR ---
NOVOLOG GIVEN NOW...PER PT REQUEST
[2016-07-29 15:33] VITALS: BP 133/67; PULSE 76; RESP 19; TEMP 97; O2SAT 96
--- NOTE | 2016-07-29 16:15 | NUR ---
PT C/O NOT FEELING WELL..PT ALREADY SEEN BY DR MICHAELS
--- NOTE | 2016-07-29 16:29 | NUR ---
PT C/O HEADACHE...TYLENOL GIVEN
--- NOTE | 2016-07-29 17:30 | NUR ---
PT REFUSED HIS SLIDING SCALE NOVOLOG 2UNITS AND HIS SCHEDULE NOVOLOG 2UNITS AT THIS TIME PT WAS OKAY WITH RECEIVING HIS SCHEDULED LEVIMIER 20UNITS SCHEDULED
[2016-07-29] MEDS: SOD FERRIC GLUC COMPLEX/SUC 125 MG in NS 100 ML IV SCH (17:57)
--- NOTE | 2016-07-29 18:30 | NUR ---
ROUNDS PT STABLE...ALL NEEDS MET...WILL CONT TO MONITOR
[2016-07-29 19:30] VITALS: BP 159/75; PULSE 79; RESP 17; TEMP 97.2; O2SAT 92
--- NOTE | 2016-07-29 19:40 | NUR ---
OPENING NOTES PATIENT IS A/OX4. NO SIGNS OF DISTRESS. BREATHING IS NON LABORED. O2 IS NOTED AND IS FLOWING. PATIENT IS SITTING UP USING HIS PERSONAL COMPUTER. IV IS PATENT AND SHOWS NO SIGNS OF COMPLICATION. PATIENT INSTRUCTED TO CALL FOR ASSISTANCE. CALL LIGHT IS WITHIN REACH. PATIENT REFUSES BED ALARM. SAFETY MEASURES ARE IN PLACE. WILL CONTINUE TO MONITOR.
[2016-07-29] MEDS: ENOXAPARIN SODIUM 30 MG/0.3 ML SYRINGE SUBCUT SCH ×2 (21:00→21:59)
--- NOTE | 2016-07-29 21:30 | NUR ---
PATIENT REFUSED PRN INSULIN. BLOOD GLUCOSE WAS 191. PATIENT NEEDED INSULIN PER SLIDING SCALE. PATIENT REFUSED. PATIENT WAS EDUCATED ON THE IMPORTANCE OF INSULIN. PATIENT REFUSED.
--- NOTE | 2016-07-29 21:30 | NUR ---
LOVENOX DISCONTINUED SPOKE TO DR. MICHAELS REGARDING LOVENOX. STATED TO DISCONTINUE ORDER.
--- NOTE | 2016-07-29 21:50 | NUR ---
PATIENT REFUSES WOUND CARE PATIENT REFUSED WOUND CARE. INFORMED PATIENT ON THE IMPORTANCE OF WOUND CARE. PATIENT REFUSED.
[2016-07-29] MEDS: ATORVASTATIN 20 MG TABLET PO SCH (21:59)
[2016-07-30 00:01] VITALS: BP 157/82; PULSE 76; RESP 20; TEMP 97.1; O2SAT 94
--- NOTE | 2016-07-30 01:40 | NUR ---
ROUNDS PATIENT IS IN BED SLEEPING. NO SIGNS OF DISTRESS. BREATHING IS NON LABORED. CALL LIGHT IS WITHIN REACH. WILL CONTINUE TO MONITOR.
[2016-07-30] MEDS: ACETAMINOPHEN 325 MG TABLET PO PRN ×3 (02:02→10:47)
[2016-07-30] MEDS: IPRATROPIUM/ALBUTEROL SULFATE 3 ML AMPUL.NEB INH SCH ×5 (03:00→18:28)
--- NOTE | 2016-07-30 03:10 | NUR ---
PATIENT REFUSED REASSESSMENT OF TYLENOL.
--- NOTE | 2016-07-30 03:31 | NUR ---
PATIENT REFUSED BREATHING TREATMENT.
[2016-07-30 04:00] VITALS: BP 148/69; PULSE 77; RESP 18; TEMP 97.9; O2SAT 92
--- NOTE | 2016-07-30 04:30 | NUR ---
PATIENT REFUSED ALL MEDICAL TREATMENT UNTIL 0900 PATIENT STATED THAT HE HAS A MIGRAINE HEADACHE AND WOULD LIKE TO GET SOME REST. PATIENT STATED THAT HE CAN NOT SLEEP DUE TO MEDICAL PERSONNEL COMING IN AT [employer]. INFORMED PATIENT OF THE IMPORTANCE OF SERVICES. PATIENT REFUSED.
--- NOTE | 2016-07-30 06:35 | NUR ---
CLOSING NOTES PATIENT IS IN BED SLEEPING. NO SIGS OF DISTRESS. BREATHING IS NON LABORED. CALL LIGHT IS WITHIN REACH. SAFETY MEASURES ARE IN PLACE. WILL ENDORSE CARE TO THE MORNING NURSE.
[2016-07-30] MEDS: INSULIN ASPART 100 UNITS/ML, 10 ML VIAL SUBCUT SCH ×3 (07:00→17:21)
[2016-07-30 08:00] VITALS: BP 172/70; PULSE 78; RESP 19; TEMP 96.1; O2SAT 98
--- NOTE | 2016-07-30 08:00 | NUR ---
PT IS LAYING IN BED, RESTING, EASY TO AROUSE, PT REQUEST IF WE COULD [PLEASE LEAVE HIM ALONE UNTIL 9AM, SAFETY MEASURES IN PLACE, CALL LIGHT WITHIN REACH, EQUAL RISK AND FALL OF CHEST NOTED, NO S/S OF DISTRESS NOTED, WILL FOLLOW UP.
[2016-07-30] MEDS: FERROUS SULFATE 325 MG TABLET.DR PO SCH (08:24)
[2016-07-30] MEDS: DOCUSATE SODIUM 250 MG CAPSULE PO SCH (08:24)
[2016-07-30] MEDS: glipiZIDE XL 5 MG TAB ( GLUCOTROL XL) PO SCH (08:24)
[2016-07-30 08:25] LABS: BASOPHILS % (AUTO) 0.2 % (0.0-2.0); EOSINOPHILS # (AUTO) 0.1 K/uL (0.0-0.4); EOSINOPHILS % (AUTO) 1.3 % (0.0-4.0); HEMOGLOBIN 8.8 g/dL (14.0-18.0); LYMPHOCYTES # (AUTO) 0.6 K/uL (1.0-5.5); LYMPHOCYTES % (AUTO) 6.2 % (20.5-51.5); MEAN CORPUSCULAR HEMOGLOBIN 27 pg (27-31); MEAN CORPUSCULAR HGB CONC 32 % (32-36); MEAN CORPUSCULAR VOLUME 86 fL (79.0-98.0); MONOCYTES % (AUTO) 9.6 % (1.7-9.3); NEUTROPHILS # (AUTO) 8.2 K/uL (1.8-7.7); NEUTROPHILS % (AUTO) 82.7 % (40.0-70.0); PLATELET COUNT (AUTO) 202 K/uL (130-430); RED BLOOD CELL COUNT(AUTO) 3.24 MIL/uL (4.2-6.2); RED CELL DISTRIBUTION WIDTH 15.9 % (9.0-15.0); WHITE BLOOD COUNT (AUTO) 9.9 K/uL (4.8-10.8)
[2016-07-30] MEDS: ISOSORBIDE MONONITRATE 30 MG TAB.ER.24H PO SCH (08:25)
[2016-07-30] MEDS: CYANOCOBALAMIN 1000 mCg TABLET PO SCH (08:25)
[2016-07-30] MEDS: LACTOBACILLUS RHAMNOSUS GG 1 CAP CAPSULE PO SCH (08:26)
[2016-07-30] MEDS: CARVEDILOL 25 MG TABLET (COREG) PO SCH (08:26)
[2016-07-30] MEDS: OMEPRAZOLE 20 MG CAPSULE.DR (PriLOSEC) PO SCH (08:26)
[2016-07-30] MEDS: NEPHROVITE, (FOLIC ACID/VITAMIN B COMP W-C 1 TAB) PO SCH (08:26)
[2016-07-30] MEDS: ASPIRIN 81 MG TAB.CHEW PO SCH (08:27)
[2016-07-30] MEDS: PREDNISONE 10 MG TABLET PO SCH (08:27)
[2016-07-30] MEDS: METOLAZONE 5 MG TABLET PO SCH (08:27)
[2016-07-30] MEDS: FUROSEMIDE 40 MG/4 ML VIAL IVP SCH (08:30)
--- NOTE | 2016-07-30 08:30 | NUR ---
PT REFUSES WOUND CARE FOR BILATERAL LOWER EXTREMITIES AT THIS TIME DESPITE EDUCATION, WILL FOLLOW UP.
[2016-07-30 08:33] LABS: CALCIUM 8.6 mg/dL (8.4-11.0); CREATININE 2.3 mg/dL (0.55-1.30); POTASSIUM 4.8 mmol/L (3.5-5.1)
[2016-07-30] MEDS: ACETYLCYSTEINE 10% 4 ML VIAL (RT) INH SCH (09:00)
[2016-07-30] MEDS: BALSAM PERU/CASTOR OIL 60 GM OINT...G. TP SCH (09:00)
--- NOTE | 2016-07-30 10:25 | NUR ---
DC PLANNING: Contacted [facility] , s/w and faxed the pt. infor to Charlee at transfer ctr/Intake dept. CM to f/u. Addendum: 07/30/16 at 1430 by Wilfrid Pereira RN >> LATE ENTRY: Per Charlee, Dr. Dank Schmitt is accepting the pt for the thoracic surgery procedure as out patient. The pt. will return back to [facility]. The Trasfer Back Agreement was completed and approved by Abdoulaye. The signed agreement form was faxed to [facility] with confirmed receipt. >> VIOLET x2 to jose armando Linares at [facility], requesting the transfer auth for [facility]. >> Received a call from Jimenez , financial admitting dept from [facility] #[phone] wants to confirm transfer auth from [facility]. >> Confirmation from Ashwini GONZALEZ at [facility] to use the same hopital auth provided before to [facility], now will change to [facility] # [id number], [facility] auth #[id number]. The information provided to Jimenez at [facility]. >> Dr. Salas , Dr. Nguyen and patient made aware that once [facility] confirmed all process.They will call us back with bed assignment and transfer time.Nyla GALVEZ made aware. >>LM and informed admitting dept that the pt. is discharged when transferring to [facility] and will use the same inpt. auth if the pt. is at [facility] less than 24 hrs. Had the pt. stay there longer than 24 hours and return back to [facility], the new inpt auth is required Addendum: 07/30/16 at 1500 by Wilfrid Pereira RN >> Please use call reference # [id number] when contacting [facility]-- CAT Addendum: 07/30/16 at 1536 by Wilfrid Pereira RN >> Received bed assignment from Loly, bed control at [facility]: the bed is abailable after 7pm tonight. room #9308, cinthya Fam RN to report at #[phone]. DAYANA [facility] address: [address] [place] [address]. LEONOR Redmond made aware and to update the discharge package and CD. >> [facility] set up with [employer] # needs healthcare analyst, oxygen, agency trainer transfer. shredder picker time is at 1930. Please call [facility] if needs to reschedule the pick time. Nyla barrera aware. , Patrick Joyce and pt. aware. Addendum: 07/30/16 at 1639 by Wilfrid Pereira RN >> S/W pt at bedside, pt. stated he is aware that he is going to [facility] for the procedure and will return back once stable. The pt. made aware that he has the bed on hold at [facility] per his insurance approval. [facility] He said that " if [place] is the only choice he has , he'd rather going home with home health f/u." CM will consult with his finance insurance manager.
--- NOTE | 2016-07-30 11:30 | NUR ---
ACCUCHECK 168, PATIENT REFUSED SCHEDULED INSULIN AND PRN INSULIN DOSE, PT STATES "JUST TELL THEM IM NON COMPLIANT, I DON'T CARE" PT CONTINUES TO REFUSE WOUND CARE FOR BILATERAL LOWER EXTREMITIES, WILL CONTINUE TO ASK PATIENT WHEN HE IS READY FOR WOUND CARE.
--- NOTE | 2016-07-30 12:29 | NUR ---
Nutrition F/U Admitting Diagnosis Respiratory failure (acute on chronic), COPD exacerbation Past Medical History COPD, CHF, atherosclerosis, DM, CKD, CAD, diabetic nephropathy, HTN, peripheral artery disease, venous stenosis per MD notes Pertinent Medications levemir, lasix, insulin aspart, nephrovite, ferric sodium gluconate complex/NaCl IV, prednisone, ferrous sulfate, VIT B-12, mylanta, culturelle, lipitor, D50%-syringe Current Diet Order [facility] (x5 days) Height (Feet) 6 feet Height (Inches) 4.00 inches Weight (Pounds) 330 pounds (admission) Weight (Calculated Kilograms) 149.020078 kilograms Patient Weight 149.685 kg Body Mass Index 40.16 kg/m2 (obesity class III) Dawson/Adjusted Body Weight IBW: 202 lb/92 kg; 163% IBW; Adj BW (obesity): 234 lb/106 kg Estimated Needs 3523-1323 kcal/day (BEE x 1.2-1.5 for COPD) Grams of Protein per Day 120-184 gm/day (1.3-2 gm/kg IBW for COPD) Fluid Intake Goal Per MD (CKD) Pertinent Labs BG 160 H, BUN 67 H, CRE 2.3 H, ALB 1.5 L (07/28/16), eGFR 31 L, Hgb 8.8 L, Hct 28 L, ALP 193 H (07/28/16), Iron 19 L (07/21/16), HDL 40 L (07/21/16), VIT B12 394 WNL (07/21/16), Folate 3.9 WNL (07/21/16 Other Subjective Data 07/24/16 Sx Bronchoscopy Dx w/ cell wash; post-op Dx: pneumonia, r/o mass Pt seen resting in bed at time of RD visit. Pt reports that he has not been eating as great as normal as he continues to have sensitivity to saline, and it has "messed" with his taste buds. Pt also states that he has ordered [employer] pizza the last 3 nights, but has thrown them away d/t increased salty flavor profile. Pt reports that he has retention of water in his legs/feet/lungs. Pt reports food preferences for sweeter (diabetic-friendly) foods, and liking of previous dinner meal last night. RD to notify [facility] staff. Pt reports last BM was yesterday. Pt denies any current N/V/C/D. Per RN, pt[facility] (active D/C planning order for transfer to higher level of care as pt requires eval and intervention w/ thoracic surgeon) d/t pending quantiferon TB gold active order. Per EMR, PO Intakes: 86% average x11 meals. Abd is soft and distended w/ active bowel sounds. Last BM x1 07/29/16. Amador scale: 18. Per Manufacturing Machine Operator note 07/27/16: skin is poor. 1) Right Distal Anterior Lower Extremity: Diabetic/Neuropathic Ulcer, present on admission. 2) Left Distal Anterior Lower Extremity: Decreased dark discoloration, and pink, present on admission. 3) Right Plantar Foot: Chronic Diabetic/Neuropathic Ulcer, present on admission. 4) Right Dorsal Foot: Wound bed unseen, closed bulla with serous fluid present. 5) Right Posterior Medial Distal Lower Extremity: [place]/red discoloration, edematous, no odor, scant serous drainage. I/O: 316/950 (-634 ml) per 12 hours. Pt is likely meeting optimal nutritional needs. Pt is not yet appropriate for nutrition education. Problem, Etiology, Signs/Symptoms Altered nutrition related lab values related to endocrine, kidney, and cardiac dysfunction as evidenced by abnormal BG, BUN, CRE, and eGFR lab values and presence of edema. *ongoing Altered taste perception related to saline sensitivity as evidenced pt report. Expected Outcomes or Goals - Monitor tolerance of diet, appetite, and PO intakes with goal of pt meeting at least 50% of estimated nutritional needs, labs trending WNL, normal GI function, skin integrity/weight maintenance *ongoing Dietitian Recommendations * Recommend continuing CCHO diet per MD w/ 1200 ml/day fluid restriction (GRAZYNA order) * Recommend adherence to pt food preferences Follow Up Mod Risk: F/U in 3-5 days
--- NOTE | 2016-07-30 14:32 | NUR ---
ROUNDS PT SITTING AT BEDSIDE, AWARE OF PENDING TRANSFER, PT STATES OTHER THAN PREPARING FOR TRANSFER AND MAKING SOME PHONE CALLS HE HAS NO NEEDS AT THIS TIME, WILL FOLLOW UP.
[2016-07-30 15:46] VITALS: BP 143/68; PULSE 80; RESP 19; TEMP 97.7; O2SAT 95
--- NOTE | 2016-07-30 17:00 | NUR ---
PER PATIENT: COMPUTER, MOUSE, AND SEVERAL OTHER BELONGINGS SENT HOME WITH FAMILY MEMBER.
[2016-07-30 17:01] VITALS: BP 143/68; PULSE 80; RESP 19; TEMP 97.7; O2SAT 95
[2016-07-30] MEDS: INSULIN ASPART 100 UNITS/ML, 10 ML VIAL (NovoLOG) SUBCUT PRN (17:23)
[2016-07-30] MEDS: SOD FERRIC GLUC COMPLEX/SUC 125 MG in NS 100 ML IV SCH (17:47)
--- NOTE | 2016-07-30 18:00 | NUR ---
PT CLEANED, CHANGED AND PREPARED FOR DISCHARGE, WOUND CARE PROVIDED AND PHOTOGRAPHS TAKEN PT TOLERATED WELL, SAFETY MEASURES IN PLACE, WILL FOLLOW UP
--- NOTE | 2016-07-30 18:30 | NUR ---
REPORT GIVEN TO VICTOR M FROM [facility], PT AWARE OD DISCHARGE, WILL ENDORSE TO FOLLOWING SHIFT TO FOLLOW UP WITH DISCHARGE PAPERWORK AND PROCEDURES. PT LAYING IN BED, RESTING, ANXIOUS TO BE TRANSFERRED, IV TO RFA INTACT PER RECEIVING HOSPITAL NURSES REQUEST, ALL NEEDS ATTENDED TO THROUGH OUT SHIFT, SAFETY MEASURES MAINTAINED, WILL ENDORSE CARE TO FOLLOWING SHIFT.
--- NOTE | 2016-07-30 19:20 | NUR ---
Opening Note Report received from Nyla GALVEZ. Patient is in stable condition. Currently waiting to be transferred to [facility] for a procedure. IV is on the RFA 22g currently saline locked. ID bands were removed. All belongings were given to the patient. All transition of care instructions were given and the patient verbalized understanding.
--- NOTE | 2016-07-30 19:35 | NUR ---
Discharge Note Report given to [facility] paramedics. Patient left the unit in stable condition via gurney. All belongings were given to the patient and belongings list was signed.
== END 2016-07-30 20:08 | disposition short-term general hospital, planned readmission (82) | DRG 194 ==
LOC: SED 11:27 → STU 13:40 → SMU 07-24 23:19
PROVIDERS: ADMIT Internal Medicine; ATTEND Internal Medicine
PROC: 30233N1 Transfusion of Nonautologous Red Blood Cells into Peripheral Vein, Percutaneous Approach (ICD-10-PCS; 2016-07-21)
PROC: 0B948ZX Drainage of Right Upper Lobe Bronchus, Via Natural or Artificial Opening Endoscopic, Diagnostic (ICD-10-PCS; 2016-07-24)
PROC: 0W993ZZ Drainage of Right Pleural Cavity, Percutaneous Approach (ICD-10-PCS; 2016-07-24)
PROC: 0B968ZX Drainage of Right Lower Lobe Bronchus, Via Natural or Artificial Opening Endoscopic, Diagnostic (ICD-10-PCS; principal; 2016-07-24 11:30)
DX: I13.0 Hypertensive heart and chronic kidney disease with heart failure and stage 1 through stage 4 chronic kidney disease, or unspecified chronic kidney disease (principal); J96.20 Acute and chronic respiratory failure, unspecified whether with hypoxia or hypercapnia; E43 Unspecified severe protein-calorie malnutrition; J18.9 Pneumonia, unspecified organism; N18.4 Chronic kidney disease, stage 4 (severe); E11.22 Type 2 diabetes mellitus with diabetic chronic kidney disease; I27.81 Cor pulmonale (chronic); I50.33 Acute on chronic diastolic (congestive) heart failure; E11.42 Type 2 diabetes mellitus with diabetic polyneuropathy; Z68.41 Body mass index [BMI] 40.0-44.9, adult; E11.51 Type 2 diabetes mellitus with diabetic peripheral angiopathy without gangrene; E11.622 Type 2 diabetes mellitus with other skin ulcer; J44.1 Chronic obstructive pulmonary disease with (acute) exacerbation; E66.9 Obesity, unspecified; F41.9 Anxiety disorder, unspecified; F32.9 Major depressive disorder, single episode, unspecified; D63.8 Anemia in other chronic diseases classified elsewhere; I87.1 Compression of vein; L97.929 Non-pressure chronic ulcer of unspecified part of left lower leg with unspecified severity; L97.919 Non-pressure chronic ulcer of unspecified part of right lower leg with unspecified severity; K21.9 Gastro-esophageal reflux disease without esophagitis; I25.10 Atherosclerotic heart disease of native coronary artery without angina pectoris; F15.90 Other stimulant use, unspecified, uncomplicated; G47.30 Sleep apnea, unspecified; Z82.49 Family history of ischemic heart disease and other diseases of the circulatory system; Z87.442 Personal history of urinary calculi; Z89.421 Acquired absence of other right toe(s); Z87.891 Personal history of nicotine dependence; Z88.2 Allergy status to sulfonamides; Z91.013 Allergy to seafood; Z83.3 Family history of diabetes mellitus; Z86.19 Personal history of other infectious and parasitic diseases
CPT/HCPCS: 31622; 32555; 36415; 36600; 71010; 71250-TC; 80048; 80053; 80061; 82575-TC; 82607; 82728; 82746; 82803-TC; 82962; 83036; 83540-TC; 83550-TC; 83735-TC; 83880; 84100-TC; 84156; 84443-TC; 84484; 85025; 85610-TC; 85730-TC; 86480; 86886; 86900; 86901; 86920; 87070; 87070-TC; 87081; 87101; 87116; 88108; 88305; 93005; 93306; 94640; 94660; 94760; 96374; 96375; 99285; C1729; J0696; J1650; J1815; J1940; J2001; J2175; J2250; J2270; J2405; J2916; J3010; J7040; J7050; J7060; J7512; P9021

== ENCOUNTER 2016-08-20 12:23 | Inpatient (IN) | payer OTHER ==
[~2016-08-20] VITALS: Ht 193 cm; Wt 126.6 kg
[~2016-08-20 12:23] MED LIST changes: +ACET-2165 PO; +ATOR20TA64 PO; +CAT.1 PO; +FERR-57 PO; +GLIP10TA98 PO; +HYDR-1189 PO; +INSU100V11 SQ; +LACT1CAP69 PO; +LORA-258 PO; +MAGN400O4 PO; +MUC10RT MC; +NITR0.4T6 SL; +ONDA2VIA IV; +PIOG15TA66 PO; +PRED20TA PO; +SSNOVOLOG SUBCUT
--- NOTE | 2016-08-20 16:30 | NUR ---
ADMISSION NOTE Received direct admit patient from [facility] via ambulance. Wheeled via gurney, received report from RN. Patient admitted with diagnosis of SOB/recent plueral effusion. Patient oriented to hospital routine, call light, toileting and safety-patient verbalized understanding.
[2016-08-20] MEDS ORDERED: cloNIDine HCL 0.1 MG TABLET PO PRN (16:45)
[2016-08-20] MEDS ORDERED: ALBUTEROL MDI INHALATION 8 GM INH INH PRN (16:45)
[2016-08-20] MEDS ORDERED: MILK OF MAGNESIA 30 ML UDC PO PRN (16:45)
[2016-08-20] MEDS ORDERED: ACETAMINOPHEN 325 MG TABLET PO PRN (16:45)
[2016-08-20] MEDS ORDERED: IPRATROPIUM/ALBUTEROL SULFATE 3 ML AMPUL.NEB INH PRN (16:45)
[2016-08-20] MEDS ORDERED: LORazepam 1 MG TABLET PO PRN (16:45)
[2016-08-20] MEDS ORDERED: NITROGLYCERIN 0.4 MG TAB.SUBL SL PRN (16:45)
--- NOTE | 2016-08-20 16:48 | NUR ---
Consult Order received for a consult with Dr Nguyen (Arnel o/c). Call was placed to [phone], spoke with Susana at their office. Will follow up as needed.
[2016-08-20] MEDS ORDERED: DEXTROSE 50% JECT 50 ML DISP.SYRIN IVP PRN (17:00)
[2016-08-20 17:04] LABS: BASOPHILS % (AUTO) 0.3 % (0.0-2.0); EOSINOPHILS # (AUTO) 0.1 K/uL (0.0-0.4); EOSINOPHILS % (AUTO) 1.6 % (0.0-4.0); HEMATOCRIT 25.7 % (36-54); HEMOGLOBIN 8.6 g/dL (14.0-18.0); LYMPHOCYTES # (AUTO) 0.4 K/uL (1.0-5.5); LYMPHOCYTES % (AUTO) 4.8 % (20.5-51.5); MEAN CORPUSCULAR HEMOGLOBIN 28 pg (27-31); MEAN CORPUSCULAR HGB CONC 33 % (32-36); MEAN CORPUSCULAR VOLUME 85 fL (79.0-98.0); MONOCYTES # (AUTO) 0.7 K/uL (0.0-1.0); MONOCYTES % (AUTO) 7.8 % (1.7-9.3); NEUTROPHILS # (AUTO) 7.9 K/uL (1.8-7.7); NEUTROPHILS % (AUTO) 85.5 % (40.0-70.0); PLATELET COUNT (AUTO) 169 K/uL (130-430); RED BLOOD CELL COUNT(AUTO) 3.03 MIL/uL (4.2-6.2); RED CELL DISTRIBUTION WIDTH 17.9 % (9.0-15.0); WHITE BLOOD COUNT (AUTO) 9.1 K/uL (4.8-10.8)
[2016-08-20 17:14] LABS: CALCIUM 8.4 mg/dL (8.4-11.0); CREATININE 2.53 mg/dL (0.55-1.30); POTASSIUM 4.5 mmol/L (3.5-5.1)
[2016-08-20 17:48] VITALS: BP 126/92; PULSE 73; RESP 20; TEMP 97.7; O2SAT 97
--- NOTE | 2016-08-20 18:00 | NUR ---
INITIAL ASSESSMENT: PT alert, awake and oriented. I.V. access patent. Discussed plan of care. Safety measures in placed. Call light in placed. Report given at bedside.
[2016-08-20 18:11] VITALS: PULSE 96
[2016-08-20 18:26] VITALS: BP 133/77; PULSE 78; RESP 16; TEMP 98.2; O2SAT 96
--- NOTE | 2016-08-20 19:15 | NUR ---
closing notes: pt sitting on bed. stable. report given to maintenance technician 2nd shift.
--- NOTE | 2016-08-20 19:35 | NUR ---
initial notes: pt is awake, alert and oriented x 4. no pain. not distress. vital sign are with normal limit. pt has iv lock left hand gauge 22- flushing well. skin issue noted on right lower leg, bilateral knee and left wrist. pt shukla chest pigtail connected to drainage bag with yellow clear drainage. poc discussed to patient. safety and orient to call light and room. needs attended. call light in reach. safety on. will monitor.
[2016-08-20 20:49] VITALS: BP 154/74; PULSE 81; RESP 20; TEMP 96; O2SAT 98
[2016-08-20] MEDS: LACTOBACILLUS RHAMNOSUS GG 1 CAP CAPSULE PO SCH (21:20)
[2016-08-20] MEDS: ATORVASTATIN 20 MG TABLET PO SCH (21:20)
[2016-08-20] MEDS: DOCUSATE SODIUM 250 MG CAPSULE PO SCH (21:20)
[2016-08-20] MEDS: CARVEDILOL 25 MG TABLET (COREG) PO SCH (21:21)
[2016-08-20] MEDS: INSULIN REGULAR, HUMAN 100 UNITS/ML, 10 ML VIAL (novoLIN R) SUBCUT PRN (21:25)
[2016-08-20] MEDS: HYDROcodone/ACETAMIN 5-325 MG TAB (NORCO/ VICODIN) PO PRN (21:32)
--- NOTE | 2016-08-20 22:00 | NUR ---
round notes: pt is still awake. no distress. pt given to his knife. will put pt name on it and will give to security for safe keeping. needs attended. will monitor.
--- NOTE | 2016-08-21 | NUR ---
round: pt is still awake. vital sign are with in normal limit. needs attended. call light in reach. will monitor.
[2016-08-21 00:11] VITALS: BP 136/83; PULSE 71; RESP 20; TEMP 96; O2SAT 97
[2016-08-21] MEDS: IPRATROPIUM/ALBUTEROL SULFATE 3 ML AMPUL.NEB INH SCH ×4 (00:41→19:51)
--- NOTE | 2016-08-21 01:55 | NUR ---
round notes: sleeping, comfortable. no sob. no distress. no pain. safety on. will monitor.
[2016-08-21 04:00] VITALS: BP 125/71; PULSE 76; RESP 20; TEMP 96; O2SAT 96
--- NOTE | 2016-08-21 04:07 | NUR ---
round notes: sleeping,comfortable. no sob. not distress. call light in reach. will monitor.
--- NOTE | 2016-08-21 06:14 | NUR ---
round notes: sleeping, quietly. no sob. no distress. no pain. call light in reach. safety on. will monitor.
[2016-08-21] MEDS: INSULIN REGULAR, HUMAN 100 UNITS/ML, 10 ML VIAL (novoLIN R) SUBCUT PRN ×3 (06:30→20:14)
--- NOTE | 2016-08-21 06:35 | NUR ---
closing: pt is awake, alert. no pain. no sob. blood sugar 302. cover per sliding scale. pt is calling kitchen for his breakfast. needs attended the whole shift. call light in reach. will give bedside report to am rn.
[2016-08-21] MEDS: ACETYLCYSTEINE 10% 4 ML VIAL (RT) INH SCH ×2 (07:00→19:30)
[2016-08-21 07:22] LABS: BASOPHILS % (AUTO) 0.3 % (0.0-2.0); EOSINOPHILS # (AUTO) 0.2 K/uL (0.0-0.4); EOSINOPHILS % (AUTO) 2.7 % (0.0-4.0); HEMATOCRIT 28.4 % (36-54); HEMOGLOBIN 9.1 g/dL (14.0-18.0); LYMPHOCYTES # (AUTO) 0.6 K/uL (1.0-5.5); LYMPHOCYTES % (AUTO) 6.7 % (20.5-51.5); MEAN CORPUSCULAR HEMOGLOBIN 28 pg (27-31); MEAN CORPUSCULAR HGB CONC 32 % (32-36); MEAN CORPUSCULAR VOLUME 86 fL (79.0-98.0); MONOCYTES # (AUTO) 0.9 K/uL (0.0-1.0); MONOCYTES % (AUTO) 9.6 % (1.7-9.3); NEUTROPHILS # (AUTO) 7.2 K/uL (1.8-7.7); NEUTROPHILS % (AUTO) 80.7 % (40.0-70.0); PLATELET COUNT (AUTO) 176 K/uL (130-430); RED BLOOD CELL COUNT(AUTO) 3.29 MIL/uL (4.2-6.2); RED CELL DISTRIBUTION WIDTH 17.8 % (9.0-15.0); WHITE BLOOD COUNT (AUTO) 8.9 K/uL (4.8-10.8)
[2016-08-21 07:26] LABS: PROTHROMBIN TIME 10.6 SECS (9.5-12.5)
--- NOTE | 2016-08-21 07:30 | NUR ---
RN ROUNDS Received patient from slot shift supervisor nurse, patient is alert and oriented x 4, no signs of distress, assessment complete, patient has Saline lock, on left hand 22 gauge, patient has a chest pigtail on right side with drainage bag connected, reeducated patient on use of call blank, instructed patient to use call light if assistance is needed, patient verbalized understanding, bed in lowest position, two side rails up, bed alarm on, fall precautions in place, will continue to monitor
[2016-08-21 07:43] LABS: ALBUMIN 1.8 g/dL (3.4-4.8); CALCIUM 8.6 mg/dL (8.4-11.0); CREATININE 2.37 mg/dL (0.55-1.30); PHOSPHORUS 4.3 mg/dL (2.7-4.5); THYROID STIMULATING HORMONE 1.33 uIu/mL (0.34-4.82); TOTAL BILIRUBIN 0.2 mg/dL (0.0-1.0)
[2016-08-21 07:49] LABS: IRON (SERUM) 37 mcg/dL (59-158); TOTAL IRON BIND. CAPACITY 164 ug/dL (250-450)
[2016-08-21 08:00] VITALS: BP 149/73; PULSE 71; RESP 18; TEMP 97.2; O2SAT 20
[2016-08-21] MEDS: DOCUSATE SODIUM 250 MG CAPSULE PO SCH ×2 (08:17→20:03)
[2016-08-21] MEDS: glipiZIDE XL 5 MG TAB ( GLUCOTROL XL) PO SCH (08:17)
[2016-08-21] MEDS: FERROUS SULFATE 325 MG TABLET.DR PO SCH (08:17)
[2016-08-21] MEDS: LACTOBACILLUS RHAMNOSUS GG 1 CAP CAPSULE PO SCH ×2 (08:17→20:04)
[2016-08-21] MEDS: CARVEDILOL 25 MG TABLET (COREG) PO SCH ×2 (08:18→20:04)
[2016-08-21] MEDS: CYANOCOBALAMIN 1000 mCg TABLET PO SCH (08:19)
[2016-08-21] MEDS: PIOGLITAZONE HCL 15 MG TABLET PO SCH (08:19)
[2016-08-21] MEDS: OMEPRAZOLE 20 MG CAPSULE.DR (PriLOSEC) PO SCH (08:19)
[2016-08-21] MEDS: ASPIRIN 81 MG TAB.CHEW PO SCH (08:20)
[2016-08-21] MEDS: ENOXAPARIN SODIUM 30 MG/0.3 ML SYRINGE SUBCUT SCH (08:20)
[2016-08-21] MEDS: FUROSEMIDE 40 MG TABLET PO SCH (08:20)
[2016-08-21] MEDS: HYDROcodone/ACETAMIN 5-325 MG TAB (NORCO/ VICODIN) PO PRN ×3 (08:24→20:05)
--- NOTE | 2016-08-21 08:25 | NUR ---
Medications Gave patient morning medications, educated patient on potential side effects of medications, patient verbalized understanding, no other needs at this time, will continue to monitor, bed in lowest position, two side rails up, bed alarm on, fall precautions in place, will continue to monitor patient
[2016-08-21 08:53] LABS: ERYTHROCYTE SEDIMENTATION RATE 115 MM/HR (0-15)
[2016-08-21] MEDS ORDERED: PREDNISONE 20 MG TABLET PO SCH (09:00)
--- NOTE | 2016-08-21 10:40 | NUR ---
RN ROUNDS Patient is currently resting in bed, brother is at bedside at this time, no complaints of pain at this time, no signs of distress, instructed patient to use call blank if assistance is needed; patient verbalized understanding, bed in lowest position, call blank within reach, bed alarm on, two side rails up, fall precautions in place, will continue to monitor patient.
--- NOTE | 2016-08-21 11:30 | NUR ---
Accu check Patient's blood sugar was taken; results :170, patient stated he did not want the 2units of insulin; educated patient on importance of taking insulin, and potential risk when not taking insulin, patient verbalized understanding and stated he still does not want insulin at this time
--- NOTE | 2016-08-21 11:45 | NUR ---
Nutrition Update Amador Scale 16 noted. Pt admitted for pleural effusion. Diet: CCHO, cardiac BMI: 34.1 kg/m2 RD to follow per nutrition care standards.
[2016-08-21 12:20] VITALS: BP 149/70; PULSE 82; RESP 20; TEMP 96.7; O2SAT 94
--- NOTE | 2016-08-21 12:35 | NUR ---
RN ROUNDS Patient is currently resting in bed, no signs of distress, no other needs at this time, bed in lowest position, call blank within reach, bed alarm on, two side rails up, fall precautions in place, will continue to monitor patient.
--- NOTE | 2016-08-21 14:45 | NUR ---
Patient is lying in bed, talking on the phone, no complaints of pain at this time, instructed patient to use call blank if assistance is needed, patient verbalized understanding, bed in lowest position, call blank within reach, fall precautions in place, will continue to monitor patient,
[2016-08-21 16:27] VITALS: BP 167/77; PULSE 79; RESP 20; TEMP 97.9; O2SAT 96
[2016-08-21] MEDS ORDERED: DOCUSATE SODIUM 250 MG CAPSULE PO ONE (16:45)
--- NOTE | 2016-08-21 16:55 | NUR ---
RN ROUNDS Patient is currently sitting up on side of bed on laptop, no complaints of pain, no signs of distress, afternoon medications given, explained to patient reason for medications and possible side effects of medications, patient verbalized understanding, bed left in lowest position, call blank within reach of patient, two side rails up, fall precautions in place, will continue to monitor patient.
[2016-08-21] MEDS ORDERED: MINERAL OIL 30 ML UDC PO ONE (17:00)
--- NOTE | 2016-08-21 18:30 | NUR ---
CLOSING NOTE PATIENT IS CURRENTLY LYING IN BED, NO COMPLAINTS OF PAIN AT THIS TIME, NO SIGNS OF DISTRESS, ALL NEEDS MET, WILL ENDORSE PATIENT TO KISS MIXER NURSE, LEFT BED IN LOWEST POSITION, BED ALARM ON, TWO SIDE RAILS UP, FALL PRECAUTIONS IN PLACE
[2016-08-21 20:00] VITALS: BP 157/73; PULSE 80; RESP 20; TEMP 97.4; O2SAT 96
--- NOTE | 2016-08-21 20:00 | NUR ---
Initial Notes Received patient sitting at edge of bed. Patient denies any acute distress. Vital signs stable. Breathing even and unlabored on 2L NC. IV site patent/clean/dry. Drainage bag noted to right lower flank, minimal yellow drainage noted. Wound noted to right leg, foam dressing clean/dry/intact. Dry scabs noted bilateral knees, and left wrist. Patient reporting pain to right flank, medicated per MD orders. Educated patient on use of call light for assistance and fall precautions, patient verbalized understanding. Call light in hand, will continue to monitor.
[2016-08-21] MEDS: ATORVASTATIN 20 MG TABLET PO SCH (20:03)
--- NOTE | 2016-08-21 22:00 | NUR ---
Rounds Patient resting in bed. Denies any acute distress or pain at this time. Breathing even and unlabored. Needs addressed. Call light in hand, fall precautions in place. Will continue to monitor.
[2016-08-22] VITALS (7 sets, daily range): BP systolic 147–178; BP diastolic 58–78; PULSE 70–78; RESP 16–20; TEMP 96.8–98; O2SAT 95–98
--- NOTE | 2016-08-22 | NUR ---
Rounds Patient awake, on computer. Patient denies any acute distress or pain. Breathing even and unlabored. Patient requesting his bag of food from home in fridge, to make a sandwich. Educated patient on importance of following a diabetic diet, patient verbalized understanding but continued to make self a snack. Needs addressed. Call light in hand, fall precautions in place. Will continue to monitor.
--- NOTE | 2016-08-22 02:00 | NUR ---
Rounds Patient laying in bed, awake. Denies any acute distress. Medicated patient for pain per MD orders. Breathing even and unlabored. Needs addressed. Call light in hand, will continue to monitor.
[2016-08-22] MEDS: HYDROcodone/ACETAMIN 5-325 MG TAB (NORCO/ VICODIN) PO PRN ×3 (02:05→18:26)
[2016-08-22] MEDS: IPRATROPIUM/ALBUTEROL SULFATE 3 ML AMPUL.NEB INH SCH ×4 (03:43→19:53)
--- NOTE | 2016-08-22 04:15 | NUR ---
Rounds Patient laying in bed, awake. Denies any acute distress or pain at this time. Breathing even and unlabored. Needs addressed, call light in hand, fall precautions in place. Will continue to monitor.
[2016-08-22] MEDS: ONDANSETRON HCL 4 MG/2 ML VIAL IVP PRN (04:31)
--- NOTE | 2016-08-22 06:26 | NUR ---
Closing Notes Patient sitting at side of bed, on computer, eating grapes. Patient denies any acute distress or pain at this time. Breathing even and unlabored. IV site patent/clean/dry, no S/S infection/infiltration noted. Minimal drainage noted for right chest pigtail drain. Needs addressed throughout shift. Call light in hand, fall precautions in place. Will continue to monitor for changes and safety, and endorse all patient care/needs to oncoming nurse.
[2016-08-22] MEDS: ACETYLCYSTEINE 10% 4 ML VIAL (RT) INH SCH ×2 (07:00→19:00)
--- NOTE | 2016-08-22 08:00 | NUR ---
NOTE PT RESTING IN BED WITH O2 AT 2L/NC ON AT THIS TIME. PT'S IV IN LEFT HAND INTACT AND PATENT AT THIS TIME. RIGHT SIDE CHEST/FLANK DRAIN IN PLACE AND DRAINING VERY MINIMAL AMOUNT OF DRAINAGE AT THIS TIME. NO SOB/RESP DISTRESS OR PAIN/DISCOMFORT NOTED AT THIS TIME. CALL LIGHT WITHIN REACH.
[2016-08-22] MEDS: MINERAL OIL 30 ML UDC PO SCH ×2 (08:37→08:46)
[2016-08-22] MEDS: FERROUS SULFATE 325 MG TABLET.DR PO SCH (08:38)
[2016-08-22] MEDS: PREDNISONE 20 MG TABLET PO SCH ×2 (08:38→08:45)
[2016-08-22] MEDS: FUROSEMIDE 40 MG TABLET PO SCH ×2 (08:38→21:40)
[2016-08-22] MEDS: OMEPRAZOLE 20 MG CAPSULE.DR (PriLOSEC) PO SCH (08:38)
[2016-08-22] MEDS: CARVEDILOL 25 MG TABLET (COREG) PO SCH ×2 (08:39→21:39)
[2016-08-22] MEDS: DOCUSATE SODIUM 250 MG CAPSULE PO SCH ×2 (08:40→21:40)
[2016-08-22] MEDS: ASPIRIN 81 MG TAB.CHEW PO SCH (08:40)
[2016-08-22] MEDS: CYANOCOBALAMIN 1000 mCg TABLET PO SCH (08:40)
[2016-08-22] MEDS: LACTOBACILLUS RHAMNOSUS GG 1 CAP CAPSULE PO SCH ×2 (08:40→21:41)
[2016-08-22] MEDS: ENOXAPARIN SODIUM 30 MG/0.3 ML SYRINGE SUBCUT SCH (08:41)
[2016-08-22] MEDS: PIOGLITAZONE HCL 15 MG TABLET PO SCH (08:41)
[2016-08-22] MEDS: glipiZIDE XL 5 MG TAB ( GLUCOTROL XL) PO SCH (08:45)
--- NOTE | 2016-08-22 10:20 | NUR ---
NOTE PT ON THE PHONE AT THIS TIME SPEAKING TO FAMILY/FRIEND ABOUT DISCHARGE PLAN. PT REQUESTED AND REC'D PAIN PO MEDICATION. PT WANTED TO WAIT A WHILE BEFORE TAKING THE LEVEMIR INSULIN, WHEN REC'D IT LAST NIGHT BLOOD SUGAR DROPPED SIGNIFICANTLY TO 75, AND PT FELT SHAKY. WANTS TO SEE WHAT BLOOD SUGAR AT 11AM MIGHT BE BEFORE TAKING LEVEMIR SQ. ALSO PT REFUSED GLUCOTROL PO. PT DID TAKE HIS ACTOS PO AT THIS TIME. CALL LIGHT WITHIN REACH. NO NEEDS NOTED. TELE UNIT ATTACHED AND ON AT THIS TIME.
[2016-08-22] MEDS: INSULIN REGULAR, HUMAN 100 UNITS/ML, 10 ML VIAL (novoLIN R) SUBCUT PRN ×3 (11:08→21:34)
--- NOTE | 2016-08-22 12:20 | NUR ---
NOTE PT WAS SEEN BY DR CHRISTIANSON AT THIS TIME. NO NEW ORDERS GIVEN AT THIS TIME. PT RESTING IN BED. DENIES ANY NEEDS AT THIS TIME. PT REQUESTED PHYSICAL THERAPY COME IN LATER FOR AMBULATION AND GAIT TRAINING. CALL LIGHT WITHIN REACH.
--- NOTE | 2016-08-22 13:00 | NUR ---
PT NOTES MULTIPLE ATTEMPTS TO PERFORM THERAPY WITH PATIENT IN MORNING AND AFTER LUNCH WITH PT REFUSING THERAPY TODAY. PT STATES, "I DID NOT GET MUCH SLEEP LAST NIGHT AND I FEEL TERRIBLE." EDUCATED PT THE BENEFITS AND IMPORTANCE OF OOB ACTITIVITES AND TO PERFORM BEDSIDE THER EX. PT ALSO REFUSED BEDSIDE THERAPY. DISCUSSED WITH NURSING. PVE(2) Addendum: 08/22/16 at 1509 by Geeta Maya PT PHYSICAL THERAPY CO-SIGN The Physical Therapy Progress Notes documented by [employer] Social Studies Teacher have been reviewed. Reviewed/Co-Signed by: Geeta Maya PT Documentation Done by: Pierre Pardo, DAY CARE TEACHER
[2016-08-22 13:23] LABS: FOLATE (FOLIC ACID) 4.5 ng/mL (>3.0)
--- NOTE | 2016-08-22 14:41 | NUR ---
DISCHARGE PLANNING Faxed SNF referral to [phone] [phone]. will follow up. Addendum: 08/22/16 at 1555 by Cindy Shafer DP Spoke with Suzie in admitting at [facility] patient accepted. Bed assignment will be given upon discharge order. LISA Yuen made aware.
--- NOTE | 2016-08-22 15:10 | NUR ---
NOTE PT RESTING IN BED, TRYING TO GET SOME SLEEP. PT DID GET A CHANCE TO SPEAK TO CASE MANAGEMENT THIS MORNING TO DISCUSS HIS NEEDS UPON DISCHARGE FROM THE HOSPITAL AT THIS TIME. QUESTIONS/CONCERNS WERE DISCUSSED AT THIS TIME. CALL LIGHT WITHIN REACH.
--- NOTE | 2016-08-22 18:10 | NUR ---
NOTE PT RESTING IN BED AFTER EATING HIS DINNER. NO SOB/RESP DISTRESS OR PAIN/DISCOMFORT NOTED AT THIS TIME. PT HAS O2 AT 2L/NC ON AT THIS TIME. TELE UNIT INTACT AND TRANSMITTING. IV IN LEFT HAND INTACT AND PATENT AT THIS TIME, NO NEEDS NOTED. PT HAS BSC AND USES IT NEEDED ALL SHIFT. PT WAS CHECKED ON Q1' AND PRN FOR NEEDS AND CARE. PT WAS MAINTAINED WITH SAFETY PRECAUTIONS ALL SHIFT. CALL LIGHT WITHIN REACH.
[2016-08-22] MEDS ORDERED: LORazepam 1 MG TABLET PO PRN (19:15)
[2016-08-22] MEDS ORDERED: HYDROmorphone 1 MG INJ. 1 MG/ML AMPUL IVP PRN (19:30)
--- NOTE | 2016-08-22 19:53 | NUR ---
INITIAL NOTES; PATIENT IN BED ,AWAKE ORIENTED X4.VITAL SIGNS TAKEN .ON O2 2 LITERS PER NASAL CANNULA.SALINE LOCK PATENT. PIGTAIL TO RIGHT FLANK DRY AND INTACT. TENDER TO TOUCH. SOFT WITH SLIGHTLY SWOLLEN. URINATING VIA URINAL. REFUSING BREATHING TREATMENTS THIS TIME WITH RT.NO OUTPUT FROM PIGTAIL.OBESE. ASKED FOR JUICES AND CRACKERS FOR SNACK.
--- NOTE | 2016-08-22 20:00 | NUR ---
Татьяна ZELAYA. HERE FOR ROUNDS WITH ORDERS. SINUS RHYTHM ON TELEMETRY.DENIES SOB THIS TIME NOR CHEST PAIN.
[2016-08-22] MEDS ORDERED: EPOETIN ALFA 4,000 UNITS/ML VIAL SUBCUT ONE ×2 (20:15)
--- NOTE | 2016-08-22 20:50 | NUR ---
PAIN.: RIGHT FLANK PIGTAIL INSERTION SITE WITH PAIN. LEVEL 7/10. DILAUDID 0.5MG IV GIVEN TO PATENT SALINE LOCK.,WITH GOOD RESPONSE.
[2016-08-22] MEDS ORDERED: EPOETIN ALFA 10,000 UNITS/ML VIAL ONE (21:13)
[2016-08-22] MEDS: ATORVASTATIN 20 MG TABLET PO SCH (21:40)
--- NOTE | 2016-08-22 21:50 | NUR ---
MEDS ADMIN: ALL DUE AND NEW MEDS GIVEN. BLOOD SUGAR 219.INSULIN DUE GIVEN WITH SNACKS. DISCUSSED EFFECTS AND SIDE EFFECTS OF EACH MEDS WITH UNDERSTANDING.
--- NOTE | 2016-08-22 22:30 | NUR ---
PATIENT CALLED DUE TO HOT ROOM TEMP. SECURITY CAME AND LOWERED IT.
--- NOTE | 2016-08-22 23:30 | NUR ---
PATIENT COMPLAINS PAIN IS GETTING MORE. WILL CALL MD.
--- NOTE | 2016-08-22 23:55 | NUR ---
PAGED: I PAGED DR. LAGOS @ [phone] I SPOKE WITH JANE MICHAELS CALLED BACK @ [phone] HE SPOKE WITH LEONOR GERARDO
[2016-08-23] VITALS (7 sets, daily range): BP systolic 127–164; BP diastolic 57–86; PULSE 72–88; RESP 17–20; TEMP 97.2–97.9; O2SAT 94–100
--- NOTE | 2016-08-23 00:15 | NUR ---
DR. MICHAELS CALLED BACK WITH ORDERS. WILL CARRY IT OUT.
[2016-08-23] MEDS: IPRATROPIUM/ALBUTEROL SULFATE 3 ML AMPUL.NEB INH SCH ×4 (01:00→19:00)
[2016-08-23] MEDS: HYDROmorphone 1 MG INJ. 1 MG/ML AMPUL IVP PRN ×3 (01:02→18:35)
--- NOTE | 2016-08-23 01:05 | NUR ---
MEDICATED WITH DILAUDID 0.5MG IV FOR 7/10 LEVEL PAIN TO RIGHT FLANK. WITH GOOD RESPONSE.
--- NOTE | 2016-08-23 01:25 | NUR ---
DRESSINGS CHANGED TO LEFT HAND AND RIGHT LEG.
--- NOTE | 2016-08-23 02:30 | NUR ---
RESTING WELL WITH CLOSE EYES THIS TIME. BREATHING PATTERN REGULAR.
--- NOTE | 2016-08-23 03:30 | NUR ---
VITAL SIGNS TAKEN. VOIDING WELL VIA URINAL.
--- NOTE | 2016-08-23 04:30 | NUR ---
REQUESTING FOR BREATHING TREATMENT DUE TO SLIGHT SOB. RT NOTIFIED.
[2016-08-23] MEDS: HYDROcodone/ACETAMIN 5-325 MG TAB (NORCO/ VICODIN) PO PRN ×3 (05:03→20:44)
--- NOTE | 2016-08-23 05:15 | NUR ---
BREATHING TX DONE BY RT.
--- NOTE | 2016-08-23 05:40 | NUR ---
BLOOD SUGAR 88MG/DL.CUP OF ORANGE JUICE WITH 2 SUGARS WITH ALVA CRACKERS GIVEN.
--- NOTE | 2016-08-23 06:25 | NUR ---
CLOSING: PAIN FAIRLY CONTROLLED BY DILAUDID IV AND NORCO PO. NO ACUTE CARDIOPULMONARY DISTRESS.HAD MILD HEADACHE,NORCO WAS GIVEN. VITAL SIGNS STABLE.
[2016-08-23] MEDS: ACETYLCYSTEINE 10% 4 ML VIAL (RT) INH SCH ×2 (07:00→19:00)
[2016-08-23 07:04] LABS: EOSINOPHILS # (AUTO) 0.3 K/uL (0.0-0.4); HEMOGLOBIN 9.1 g/dL (14.0-18.0); MONOCYTES # (AUTO) 0.8 K/uL (0.0-1.0); NEUTROPHILS # (AUTO) 5.8 K/uL (1.8-7.7)
[2016-08-23 07:13] LABS: BASOPHILS % (AUTO) 0.3 % (0.0-2.0); EOSINOPHILS % (AUTO) 4.1 % (0.0-4.0); HEMATOCRIT 28.1 % (36-54); LYMPHOCYTES # (AUTO) 0.6 K/uL (1.0-5.5); LYMPHOCYTES % (AUTO) 8.6 % (20.5-51.5); MEAN CORPUSCULAR HEMOGLOBIN 28 pg (27-31); MEAN CORPUSCULAR HGB CONC 32 % (32-36); MEAN CORPUSCULAR VOLUME 87 fL (79.0-98.0); MONOCYTES % (AUTO) 10.7 % (1.7-9.3); NEUTROPHILS % (AUTO) 76.3 % (40.0-70.0); PLATELET COUNT (AUTO) 164 K/uL (130-430); RED BLOOD CELL COUNT(AUTO) 3.25 MIL/uL (4.2-6.2); RED CELL DISTRIBUTION WIDTH 17.5 % (9.0-15.0); WHITE BLOOD COUNT (AUTO) 7.5 K/uL (4.8-10.8)
[2016-08-23 07:26] LABS: ALBUMIN 1.7 g/dL (3.4-4.8); CALCIUM 8.4 mg/dL (8.4-11.0); CREATININE 1.87 mg/dL (0.55-1.30); PHOSPHORUS 4.2 mg/dL (2.7-4.5); TOTAL BILIRUBIN 0.2 mg/dL (0.0-1.0)
--- NOTE | 2016-08-23 08:00 | NUR ---
NOTE PT RESTING IN BED AND EATING HIS BREAKFAST LYING ON LEFT SIDE OF BED. PT HAS HIS O2 ON AT 2L/NC. IV IN LEFT HAND INTACT AND PATENT AT THIS TIME. NO SOB/RESP DISTRESS OR PAIN/DISCOMFORT NOTED AT THIS TIME. PT HAS HIS BSC ON RIGHT SIDE OF BED FOR EASY ACCESS. CALL LIGHT WITHIN REACH.
[2016-08-23] MEDS: MINERAL OIL 30 ML UDC PO SCH ×2 (09:00→12:12)
[2016-08-23] MEDS: glipiZIDE XL 5 MG TAB ( GLUCOTROL XL) PO SCH (09:00)
[2016-08-23] MEDS: ASPIRIN 81 MG TAB.CHEW PO SCH (09:03)
[2016-08-23] MEDS: CYANOCOBALAMIN 1000 mCg TABLET PO SCH (09:03)
[2016-08-23] MEDS: CHOLECALCIFEROL (VITAMIN D3) 2,000 UNIT TABLET PO SCH (09:04)
[2016-08-23] MEDS: PREDNISONE 20 MG TABLET PO SCH (09:04)
[2016-08-23] MEDS: ISOSORBIDE MONONITRATE 30 MG TAB.ER.24H PO SCH (09:04)
[2016-08-23] MEDS: OMEPRAZOLE 20 MG CAPSULE.DR (PriLOSEC) PO SCH (09:04)
[2016-08-23] MEDS: ENOXAPARIN SODIUM 30 MG/0.3 ML SYRINGE SUBCUT SCH (09:05)
[2016-08-23] MEDS: DOCUSATE SODIUM 250 MG CAPSULE PO SCH ×2 (09:05→20:44)
[2016-08-23] MEDS: TAMSULOSIN HCL 0.4 MG CAP PO SCH (09:05)
[2016-08-23] MEDS: LACTOBACILLUS RHAMNOSUS GG 1 CAP CAPSULE PO SCH ×2 (09:05→20:45)
[2016-08-23] MEDS: FERROUS SULFATE 325 MG TABLET.DR PO SCH (09:05)
[2016-08-23] MEDS: FUROSEMIDE 40 MG TABLET PO SCH ×2 (09:06→20:45)
[2016-08-23] MEDS: CARVEDILOL 25 MG TABLET (COREG) PO SCH ×2 (09:07→20:44)
--- NOTE | 2016-08-23 11:00 | NUR ---
NOTE DR MICHAELS WAS ON THE FLOOR AND ASSESSMENT OF PT COMPLETED. PT STATES HE TOLD DR MICHAELS ABOUT PAIN/DISCOMFORT ON RIGHT SIDE OF CHEST (WHERE PIGTAIL DRAINAGE IS). DR MICHAELS TOLD PT THAT SITE IS NORMAL AROUND INCISION. DR MICHAELS GAVE NEW ORDERS AND WERE CARRIED OUT AT THIS TIME. NO NEEDS NOTED. CALL LIGHT WITHIN REACH.
[2016-08-23] MEDS ORDERED: LACTULOSE 20 GM/30 ML UDC PO ONE (12:00)
--- NOTE | 2016-08-23 12:00 | NUR ---
PT NOTE 1149 MEDICAL CHART REVIEWED. Pt WAS CLEARED FOR PT PER RN. Pt WAS SEEN AWAKE RESTING IN BED, WATCHING TV; REFUSED TO PARTICIPATE WITH PT AT THIS TIME DESPITE ENCOURAGEMENT AND EDUCATION ON IMPORTANCE OF OOB. Pt STATES THAT HE IS NOT FEELING GOOD AND THAT HE HAS NOT HAD A BM IN 4 DAYS. NOTIFIED Pt, WILL ATTEMPT PT TX LATER THIS AFTERNOON BUT Pt STATES, "I DOUBT IT." Pt REQUESTED TO BE SEEN TOMORROW INSTEAD. RN NOTIFIED. PVE(1)
[2016-08-23] MEDS: INSULIN REGULAR, HUMAN 100 UNITS/ML, 10 ML VIAL (novoLIN R) SUBCUT PRN ×3 (12:19→21:09)
--- NOTE | 2016-08-23 14:00 | NUR ---
DC PLANNING: Spoke with dr. Nguyen in nursing station regarding discharging the pt. to lower level of care. Dr. Nguyen recommended LTAC rather than SNF this due to the pt. required the chest tube monitoring, CT scan and CXR prior to follow up visit with [facility]. Per [facility] Follow -up plan instructions (copy on file ) : The patient will be follow-up with the attending within 1 month. The office will call to arrangement appointment. He should have a non-contrast CT scan performed at time of visit. Patient should keep pigtail until lung re-expands. lisa Linares at [facility] was notified of the above. LISA requested Milagros to assist transferring the pt. to LTAC or to [facility] network. Milagros stated she will discuss the case with her medical doctor and will call me back tomorrow with the outcome. Milagros contact #[phone], call ref#[id number]-- TVRN >> Addendum: 08/24/16 at 1030 by Wilfrid Pereira RN >> F/U with Milagros, stated " she is still waiting for her medical md's decision. She will call back later." LISA will f/u. CAT
--- NOTE | 2016-08-23 14:20 | NUR ---
NOTE PT RESTING IN BED. STATED HE HAS NOT BEEN ABLE TO SLEEP WELL THE LAST 2 NIGHTS, EVEN THOUGH PAIN IVP AND PO MEDICATIONS WERE GIVEN SCHEDULED AND REQUESTED. NO NEEDS NOTED AT THIS TIME. CALL LIGHT WITHIN REACH.
--- NOTE | 2016-08-23 18:10 | NUR ---
NOTE PT WAS CHECKED ON Q1' AND PRN FOR NEEDS AND CARE. PT STILL NOT ABLE TO HAVE A BOWEL MOVEMENT. PT WAS GIVEN MINERAL OIL AND LACTULOSE PO. NO SOB/RESP DISTRESS NOTED. PT GIVEN PAIN PO AND IVP MEDICATIONS REQUESTED AND SCHEDULED. IV IN LEFT HAND INTACT AND PATENT. PT WAS MAINTAINED WITH SAFETY PRECAUTIONS ALL SHIFT. NO NEEDS NOTED. CALL LIGHT WITHIN REACH.
--- NOTE | 2016-08-23 19:20 | NUR ---
RECEIVED BEDSIDE REPORT FROM LEONOR SOMMER.PATIENT IS AT BEDSIDE COMMODE HAVING BOWEL MOVEMENT WITH DIFFICULTY AND PAIN ,MOANING VERY LOUD.REASSURANCES PROVIDED.
--- NOTE | 2016-08-23 19:45 | NUR ---
PATENT STILL AT BSC.LINEN CHANGED.
--- NOTE | 2016-08-23 20:00 | NUR ---
BOWEL MOVEMENT/HYGEINE: HAD VERY LARGE HARD /FORMED /LOOSE DARK BROWNISH STOOL. THANKFUL HAD BM. VITAL SIGNS TAKEN STABLE. FEELING RT. FLANK PAIN,SLIGHT DIAPHORETIC BUT WARM.NO ACUTE DISTRESS.OBESE. SALINE LOCK PATENT. REFUSING BREATHING TX THIS TIME. WANTED TO REST. SAFETY PRECAUTION IN PROGRESS. SINUS RHYTHM ON TELEMONITOR. WILL MONITOR CLOSELY.
--- NOTE | 2016-08-23 20:25 | NUR ---
CARON CARE DONE. COCCYX AREA ALIGHT REDDISH. Z GAURD CREAM APPLIED.
--- NOTE | 2016-08-23 20:45 | NUR ---
MEDS ADMIN/PAIN: ALL DUE MEDS WITH NORCO 5/325MG GIVEN. HAVING [employer] FOODS FOR DINNER. REFUSE HOSPITAL FOOD THIS TIME.
[2016-08-23] MEDS: LACTULOSE 20 GM/30 ML UDC PO SCH ×2 (20:46→20:49)
--- NOTE | 2016-08-23 21:10 | NUR ---
BLOOD SUGAR 327 MG/DL. LEVIMIR AND REGULAR INSULIN GIVEN.
[2016-08-23] MEDS: ATORVASTATIN 20 MG TABLET PO SCH (21:11)
--- NOTE | 2016-08-23 22:20 | NUR ---
PATIENT RESTING WITH EYES CLOSE THIS ROUND.WANTED TO REST.VOIDING CLEAR DI URINE VIA URINAL.
--- NOTE | 2016-08-23 23:05 | NUR ---
AWAKENED. ASKED FOR PAIN MED. EXPLAIN TIME NOT DO. KEPT COMFORTABLE.
--- NOTE | 2016-08-23 23:45 | NUR ---
PIGTAIL DRESSING: DRESSING COMMING OFF. SITE REDDISH WITH OLD DRY BLOOD..TENDER TO TOUCH. REFUSE /SCARED TO CHANGE DRESSING. REINFORCED WITH OPSITE. NO OUT PUT.
[2016-08-24] VITALS: BP 140/67; PULSE 84; RESP 20; TEMP 97.8; O2SAT 98
--- NOTE | 2016-08-24 00:10 | NUR ---
PAIN/WOUND DRESSING: DILAUDID 0.5MG IV GIVEN FOR PAIN LEVEL OF 7-8/10. DRESSING TO LEFT HAND AND RIGHT LEG CHANGED AND WOUND CARE DONE.
[2016-08-24] MEDS: HYDROmorphone 1 MG INJ. 1 MG/ML AMPUL IVP PRN ×3 (00:12→12:40)
--- NOTE | 2016-08-24 00:25 | NUR ---
NUTRITION/COMFORT: HAVING HOME SANDWICHES /JUICES FOR SNACK.
--- NOTE | 2016-08-24 00:30 | NUR ---
HAD BEEN TALKING TO FAMILIES VIA CELL PHONE.
[2016-08-24] MEDS: IPRATROPIUM/ALBUTEROL SULFATE 3 ML AMPUL.NEB INH SCH ×3 (01:00→13:00)
[2016-08-24] MEDS: ONDANSETRON HCL 4 MG/2 ML VIAL IVP PRN ×2 (02:59→12:40)
--- NOTE | 2016-08-24 03:00 | NUR ---
PATIENT NAUSEATED ZOFRAN 4MG IV GIVEN WITH RELIEF.
[2016-08-24 05:25] VITALS: BP 152/69; PULSE 84; RESP 18; TEMP 98; O2SAT 97
[2016-08-24] MEDS: INSULIN REGULAR, HUMAN 100 UNITS/ML, 10 ML VIAL (novoLIN R) SUBCUT PRN ×2 (05:57→12:36)
--- NOTE | 2016-08-24 06:00 | NUR ---
BLOOD SUGAR 241 ,REGULAR INSULIN GIVEN. VOIDING FREELY.
--- NOTE | 2016-08-24 06:05 | NUR ---
COMPLAIN OF RT.FLANK PAIN. DILAUDID IV GIVEN.
--- NOTE | 2016-08-24 06:40 | NUR ---
CLOSING: MUCH RELIEVED FROM CONSTIPATION. SLEPT AT LONG INTERVALS. NO ACUTE CARDIOPULMONARY DISTRESS. FALL PRECAUTION IN PROGRESS WHOLE SHIFT. NO S/S OF HYPER/HYPOGLYCEMIA. WILL ENDORSE TO AM RN FOR CONTINUITY OF CARE.
[2016-08-24] MEDS: ACETYLCYSTEINE 10% 4 ML VIAL (RT) INH SCH (07:00)
--- NOTE | 2016-08-24 07:45 | NUR ---
OPENING NOTE: RECEIVED REPORT FROM NIGHTMAN NURSE. PATIENT RESTING COMFORTABLY AT THIS TIME. PATIENT HAS NO NOTABLE SIGNS OF DISTRESS AT THIS TIME. PATIENTS BED ALARM IS ON, CALL LIGHT WITHIN REACH, AND BED IN LOWEST POSITION. WILL CONTINUE TO MONITOR FOR SIGNS OF DISTRESS. PATIENT ENCOURAGED TO USE CALL LIGHT IF NEEDS ARISE.
[2016-08-24] MEDS: MINERAL OIL 30 ML UDC PO SCH (09:00)
[2016-08-24] MEDS: OMEPRAZOLE 20 MG CAPSULE.DR (PriLOSEC) PO SCH (09:25)
[2016-08-24] MEDS: DOCUSATE SODIUM 250 MG CAPSULE PO SCH (09:26)
[2016-08-24] MEDS: ASPIRIN 81 MG TAB.CHEW PO SCH (09:26)
[2016-08-24] MEDS: FUROSEMIDE 40 MG TABLET PO SCH (09:26)
[2016-08-24] MEDS: ISOSORBIDE MONONITRATE 30 MG TAB.ER.24H PO SCH (09:27)
[2016-08-24] MEDS: PREDNISONE 20 MG TABLET PO SCH (09:27)
[2016-08-24] MEDS: CHOLECALCIFEROL (VITAMIN D3) 2,000 UNIT TABLET PO SCH (09:28)
[2016-08-24] MEDS: CYANOCOBALAMIN 1000 mCg TABLET PO SCH (09:28)
[2016-08-24] MEDS: glipiZIDE XL 5 MG TAB ( GLUCOTROL XL) PO SCH (09:28)
[2016-08-24] MEDS: LACTOBACILLUS RHAMNOSUS GG 1 CAP CAPSULE PO SCH (09:28)
[2016-08-24] MEDS: TAMSULOSIN HCL 0.4 MG CAP PO SCH (09:29)
[2016-08-24] MEDS: CARVEDILOL 25 MG TABLET (COREG) PO SCH (09:29)
[2016-08-24] MEDS: FERROUS SULFATE 325 MG TABLET.DR PO SCH (09:29)
[2016-08-24] MEDS: ENOXAPARIN SODIUM 30 MG/0.3 ML SYRINGE SUBCUT SCH (09:30)
--- NOTE | 2016-08-24 10:00 | NUR ---
1000 ROUNDS PATIENT RESTING AT THIS TIME. PATIENT HAS NO NOTABLE SIGNS OF DISTRESS AT THIS TIME. PATIENT REPOSITIONED, HEELS FLOATED. PATIENTS BELONGINGS WERE PLACED WITHIN REACH. PATIENTS PHYSICIAN SPOKE WITH PATIENT AND PATEINT REQUESTS LOOM OPERATOR CONSULT. PATIENTS BED IS IN LOWEST POSITION, CALL LIGHT WITHIN REACH, AND BED ALARM IS ON. WILL CONTINUE TO MONITOR FOR CHANGES IN STATUS.
--- NOTE | 2016-08-24 10:51 | NUR ---
Dc Planning: Spoke with Suzie at [phone] to confirm whether the facility can take care the Pigtail chest tube and drainage and to f/u with CT scan, CXR and arranging the follow up visit at [facility].-- Per Suzie, the facility can accommodate the cares as indicated. --TVRN Addendum: 08/24/16 at 1224 by Wilfrid Pereira RN Late entry: 08/24/16 at 1030 by Wilfrid Pereira RN >> F/U with Milagros, stated " she is still waiting for her medical md's decision. She will call back later." CM will f/u. TVRN Addendum: 08/24/16 at 1229 by Wilfrid Pereira RN >> Returned call from Milagros, per her medical md. requesting to find a snf that can take care of the pt. Milagros made aware that [facility] is able to accommodate the care for the pt. Milagros then provided auth # [id number] and ambulance auth. # [id number] , may use [facility] ambulance. >> Notified and got the okay consent from dr. Nguyen to transfer pt. to [facility]. Addendum: 08/24/16 at 1448 by Wilfrid Pereira RN >> Together with dr. Salas, Ketty GALVEZ and myself met with pt. at bedside. Dr. Salas summarized the course of treatment and the follow up care expectation follow up visit with [facility]. The pt. agreed with the transfer this pm to [facility].-- Ivanna Pena RN made aware and to relay the message to [facility] about the f/u care visit at [facility]: to contact Nicolas, hemodialysis patient care specialist at Dr Pabon, [place] office, [facility]. TEL #[phone]. I could not get the appointment today, because no one was available at the office at this time. I left message for call back at [phone], otherwise the staff at [facility] to make appointment for the pt. -- LEONOR Pena made aware.
--- NOTE | 2016-08-24 11:30 | NUR ---
BGL/INSULIN PATIENTS BLOOD SUGAR OF 182, 2U REGULAR INSULIN GIVEN FOR COVERAGE.
[2016-08-24 12:00] VITALS: BP 144/77; PULSE 80; RESP 16; TEMP 97.8; O2SAT 97
--- NOTE | 2016-08-24 12:00 | NUR ---
1200 ROUNDS PATIENT RESTING AT THIS TIME. PATIENT HAS NO NOTABLE SIGNS OF DISTRESS AT THIS TIME. PATIENT REPOSITIONED, HEELS FLOATED. PATIENTS BED IS IN LOWEST POSITION, CALL LIGHT WITHIN REACH, AND BED ALARM IS ON. WILL CONTINUE TO MONITOR FOR CHANGES IN STATUS.
--- NOTE | 2016-08-24 12:50 | NUR ---
PAIN PATIENT COMPLAINS OF 7/10 PAIN, DILAUDID GIVEN. WILL REASSESS PATIENT IN 30 MINUTES. PATIENT REPOSITIONED, AND COMPLAINS OF MILD NAUSEA. ZOFRAN GIVEN. WILL CONTINUE TO MONITOR PATIENT FOR CHANGE IN STATUS.
--- NOTE | 2016-08-24 13:03 | NUR ---
DISCHARGE PLANNING Spoke with Suzie in admitting at [facility] patient assigned to room 10B RN to report [phone] bed available anytime. CM will obtain discharge order. Called contracted ambulance [facility] [phone] spoke with Camila jaeger BLS (O2) transport on will call transport auth#[id number]. Placed transport packet in nurse station. Addendum: 08/24/16 at 1532 by Cindy CHEN DC order to SNF. LEONOR Davis made aware. Called [facility] ambulance arranged transport pickling drum operator 5pm. Addendum: 08/27/16 at 1450 by Wilfrid Pereira RN >> Received call from Sonia at dr. Pabon's office #[phone] giving the tentative follow up visit appointment with CT scan prior to the visit. >> Called and s/w ANUP Calix at [facility] via phone # [phone] regarding contact info for f/u appointment at [facility]. That the pt. should have CT scan done prior to visiting [facility] staff [facility] to get CT scan authorization and get CT scan done prior to the visit. Please make request to have CT scan done at [facility]. The tentative appointment with dr. Pabon is on SaturdaySeptember 18 at 3:15 pm. Please call to verify the process and confirm the appointment akbar. This note is sent to Fifi at fax#[phone], phone # [phone]-- TV RN
--- NOTE | 2016-08-24 13:39 | NUR ---
PT NOTES TRIED MULTIPLE ATTEMPTS TO PERFORM PHYSICAL THERAPY WITH PATIENT AT 1030AM, 1150AM AND 130PM, REFUSED ALL THREE TIMES. PT STATES, "NOT FEELING UP TO WALKING OR PERFORMING THERAPY EXERCISES IN BED. I WILL DO EXERCISES ON MY OWN IN BED." EDUCATED PT THE IMPORTANCE/BENEFITS OF OOB ACTIVITIES AND PERFORMING THER EX WITH PT AWARE. DISCUSSED WITH NURSING ABOUT REFUSALS. DISCUSSED WITH PRIMARY PT ABOUT POSSIBLE DC FROM PHYSICAL THERAPY. PVE(2) Addendum: 08/24/16 at 1433 by Geeta Maya PT PHYSICAL THERAPY CO-SIGN The Physical Therapy Progress Notes documented by Roustabout Pusher have been reviewed. Reviewed/Co-Signed by: Geeta Maya, PT Documentation Done by: Pierre Morillo PTA Patient is very difficult towards the plan of care, same attitude from his past admissions where he always refused to participate with PT staffs in spite of several encouragements given. Plan: we'll DC PT services now due to his uncooperativeness with the recommended plan of care.
--- NOTE | 2016-08-24 14:00 | NUR ---
1400 ROUNDS PATIENT REFUSED PHYSICAL THERAPY CONSULTATION, COMPLAINTS OF PAIN 7/10 WITH MOVEMENT. PATIENT RESTING COMFORTABLY AT THIS TIME. PATIENT MEDICATED FOR PAIN ONE HOUR AGO. ZOFRAN GIVEN FOR MILD NAUSEA. BED IS IN LOWEST POSITION, CALL LIGHT WITHIN REACH, AND BED ALARM IS ON. WILL CONTINUE TO MONITOR FOR CHANGES IN STATUS.
[2016-08-24] MEDS: HYDROcodone/ACETAMIN 5-325 MG TAB (NORCO/ VICODIN) PO PRN (14:27)
--- NOTE | 2016-08-24 14:27 | NUR ---
PAIN PATIENT IS HAVING PAIN AT 7/10. DILAUDID HELPED FOR APPROXIMATELY 1 HOUR. PATIENT HAS INCREASED DISCOMFORT WITH MOVEMENT. NORCO GIVEN. WILL REASSESS AND CONTINUE TO MONITOR FOR CHANGES.
[2016-08-24 15:25] VITALS: Ht 193 cm; Wt 126.6 kg
--- NOTE | 2016-08-24 16:00 | NUR ---
1600 ROUNDS PATIENT RESTING IN BED, BED IN LOWEST POSITION, CALL LIGHT WITHIN REACH, AND BED ALARM IS ON. PATIENT HAS NO NOTABLE SIGNS OF DISTRESS AT THIS TIME. PATIENT RATES PAIN AT 3-4/10, STATES THAT IT IS AT THE TOLERABLE LEVEL FOR NOW. WILL CONTINUE TO MONITOR FOR CHANGES IN STATUS.
[2016-08-24 16:02] VITALS: BP 132/62; PULSE 81; RESP 16; TEMP 97.2; O2SAT 97
--- NOTE | 2016-08-24 16:30 | NUR ---
Amador Scale Evaluation: Patient evaluated for a low Amador score of 16, patient was awake, alert, oriented, and received in a Hertel Bed with an Atmos-Air 9000 mattress. Skin is poor; Perineal and buttocks areas have erythema from IAD. Recommend encourage and assist patient as needed with repositioning side to side only every 2 hours with pillow support, and off-load bilateral heels and pressure areas with pillows for pressure redistribution. Use moisture barrier cream on moisture susceptible areas qid, and as needed for soiling. Other skin assessment: 1) Right Distal Anterior Lower Extremity: Healed Diabetic/Neuropathic Ulcer, present on admission. No odor, no drainage. Recommend: Put moisture barrier cream onto wound and yamilet-wound. Cover with foam dressing. Perform wound care daily and as needed for soiling.
--- NOTE | 2016-08-24 17:00 | NUR ---
DISCHARGE PATIENT AWAITING TRANSPORTATION TO [facility] AT 1700. REPORT GIVEN TO ARMOND, INFORMATION REGARDING FOLLOW UP IN 10 DAYS, CT, LAB ORDERS, AND MD AT [facility] PHONE NUMBER AND MANAGER [employer]. PATIENT AAOX4. GIVEN DISCHARGE INSTRUCTION, VERBALIZED UNDERSTANDING OF INFORMATION GIVEN. PATIENT BELONGINGS SENT WITH EMS CREW AND PATIENT, EXCEPT FOR $60 FORGOTTEN IN BEDSIDE TABLE. Addendum: 08/24/16 at 1815 by Susan Harper RN EMT THAT PICKED UP PATIENT RETURNED TO OIL REFINERY OPERATOR THE MONEY LEFT. $60 GIVEN TO EMT TO RETURN TO PATIENT.
[2016-08-24 17:08] VITALS: BP 144/77; PULSE 80; RESP 19; TEMP 97.8; O2SAT 97
== END 2016-08-24 17:50 | DRG 137 ==
LOC: SMU 16:11 → STU 16:14 → SMU 08-24 12:35
PROVIDERS: ADMIT Internal Medicine; ATTEND Internal Medicine
DX: J86.9 Pyothorax without fistula (principal); J94.2 Hemothorax; E44.0 Moderate protein-calorie malnutrition; E11.22 Type 2 diabetes mellitus with diabetic chronic kidney disease; E11.51 Type 2 diabetes mellitus with diabetic peripheral angiopathy without gangrene; I50.9 Heart failure, unspecified; I13.0 Hypertensive heart and chronic kidney disease with heart failure and stage 1 through stage 4 chronic kidney disease, or unspecified chronic kidney disease; J44.9 Chronic obstructive pulmonary disease, unspecified; I25.10 Atherosclerotic heart disease of native coronary artery without angina pectoris; I25.5 Ischemic cardiomyopathy; N18.9 Chronic kidney disease, unspecified; D63.8 Anemia in other chronic diseases classified elsewhere; M10.9 Gout, unspecified; F41.9 Anxiety disorder, unspecified; F32.9 Major depressive disorder, single episode, unspecified; E66.9 Obesity, unspecified; Z82.49 Family history of ischemic heart disease and other diseases of the circulatory system; Z83.3 Family history of diabetes mellitus; Z87.441 Personal history of nephrotic syndrome; Z87.442 Personal history of urinary calculi; Z87.891 Personal history of nicotine dependence; Z88.2 Allergy status to sulfonamides; Z89.421 Acquired absence of other right toe(s); Z68.34 Body mass index [BMI] 34.0-34.9, adult; G89.4 Chronic pain syndrome; R60.1 Generalized edema; N04.9 Nephrotic syndrome with unspecified morphologic changes
CPT/HCPCS: 36415; 71010; 80048; 80053; 82607; 82746; 82962; 83540-TC; 83550-TC; 84100-TC; 84439; 84443-TC; 85025; 85610-TC; 85651-TC; 87081; 94640; 94760; J0885; J1170; J1650; J1815; J2405; J7512

== ENCOUNTER 2016-10-10 05:02 | Inpatient (IN) | payer OTHER ==
[~2016-10-10] VITALS: Ht 193 cm; Wt 108.9 kg
[2016-10-10] VITALS (7 sets, daily range): BP systolic 130–160
[~2016-10-10 05:02] MED LIST changes: -ALPR2TAB2 PO; -AMLO5TAB4 PO; -AMLO5TAB92 PO; -AMOX-423 PO; -AMOX-426 PO; -ASA81 PO; -ASPI-1063 PO; -BUDE6HFA INH; -CEPH-568 PO; -CEPH500C2 PO; -CLIN-77 PO; -DICY10CA59 PO; -DOXY-4 PO; -DOXY100T2 PO; -ENAL10TA PO; -ENAL10TA75 PO; -FAMO40TA35 PO; -FURO-149 PO; -GLIP10TA11 PO; -GLIP5TAB13 PO; -GLU500 PO; -HUMALOG; -HUMULIN; -INSU10VI4 SUBCUT; -LACT1CAP57 PO; -METF1000 PO; -METO-290 PO; -METO5TAB8 PO; -METR500T PO; -NPH,100V SUBCUT; -OMEP-130 PO; -POTA20PA4 PO; -POTA20TA83 PO; -SIMV80TA74 PO; -TRAM50TA92 PO
--- NOTE | 2016-10-10 05:02 | NUR ---
BROUGHT IN BY [facility] FROM PTS HOME IN [place] PER PTS REQUEST. PLACED IN BED #2 AND TRIAGED. REPORT GIVEN TO RENETTA/RICARDO
[2016-10-10] MEDS ORDERED: IPRATROPIUM BROM 0.5 MG/2.5 ML VIAL.NEB (ATROVENT) IH ONE (05:45)
[2016-10-10] MEDS ORDERED: ALBUTEROL SULFATE 0.083% 2.5 MG/3 ML VIAL.NEB IH ONE (05:45)
[2016-10-10] MEDS ORDERED: FUROSEMIDE 40 MG/4 ML VIAL IVP ONE (05:45)
[2016-10-10 06:03] LABS: ABG TOTAL HEMOGLOBIN 10.3 G/dL (12.0-18.0); BLOOD GAS BASE EXCESS 3.3 mmol/L (-3.0-3.0); BLOOD GAS COHb% 0.3 % (0.5-1.5); BLOOD GAS HHB 7.1 % (0.0-6.0); BLOOD O2Hb% 92.6 % (94.0-97.0)
[2016-10-10 06:26] LABS: BASOPHILS # (AUTO) 0.1 K/uL (0.0-0.2); BASOPHILS % (AUTO) 0.7 % (0.0-2.0); EOSINOPHILS # (AUTO) 0.2 K/uL (0.0-0.4); EOSINOPHILS % (AUTO) 2.4 % (0.0-4.0); HEMATOCRIT 29.3 % (36-54); HEMOGLOBIN 9.3 g/dL (14.0-18.0); LYMPHOCYTES # (AUTO) 0.6 K/uL (1.0-5.5); LYMPHOCYTES % (AUTO) 8.1 % (20.5-51.5); MEAN CORPUSCULAR HEMOGLOBIN 27 pg (27-31); MEAN CORPUSCULAR HGB CONC 32 % (32-36); MEAN CORPUSCULAR VOLUME 85 fL (79.0-98.0); MONOCYTES # (AUTO) 0.6 K/uL (0.0-1.0); MONOCYTES % (AUTO) 7.7 % (1.7-9.3); NEUTROPHILS # (AUTO) 6.1 K/uL (1.8-7.7); NEUTROPHILS % (AUTO) 81.1 % (40.0-70.0); PLATELET COUNT (AUTO) 227 K/uL (130-430); RED BLOOD CELL COUNT(AUTO) 3.46 MIL/uL (4.2-6.2); RED CELL DISTRIBUTION WIDTH 15.9 % (9.0-15.0); WHITE BLOOD COUNT (AUTO) 7.6 K/uL (4.8-10.8)
[2016-10-10 06:39] LABS: CALCIUM 8.5 mg/dL (8.4-11.0); CREATININE 1.73 mg/dL (0.55-1.30); POTASSIUM 3.8 mmol/L (3.5-5.1)
[2016-10-10 06:41] LABS: INR 1.1 (0.80-1.20); PROTHROMBIN TIME 11.4 SECS (9.5-12.5)
[2016-10-10 06:44] LABS: ALBUMIN 1.8 g/dL (3.4-4.8); TOTAL BILIRUBIN 0.3 mg/dL (0.0-1.0); TOTAL PROTEIN, SERUM 7.3 g/dL (6.4-8.3)
[2016-10-10] MEDS ORDERED: MORPHINE 4 MG/ML INJ. SYRINGE IVP ONE (06:45)
[2016-10-10 07:13] LABS: BILIRUBIN,URINE NEGATIVE (NEGATIVE); BLOOD, URINE 2+ (NEGATIVE); CLARITY/URINE CLEAR (CLEAR); COLOR,URINE YELLOW (YELLOW); GLUCOSE,URINE 2+ (NEGATIVE); KETONES,URINE TRACE (NEGATIVE); LEUKOCYTE ESTERASE ,URINE NEGATIVE (NEGATIVE); NITRITE, URINE NEGATIVE (NEGATIVE); PROTEIN URINE 3+ (NEGATIVE); UROBILINOGEN,URINE 0.2 (0.2-1.0)
--- NOTE | 2016-10-10 07:16 | NUR ---
drainage tubing to R lateral flank secured with satin tape and abdominal dressing under the tube for pt comfort.
--- NOTE | 2016-10-10 07:18 | NUR ---
pt stable, no resp distress noted. pt currently denying chest pain
[2016-10-10 07:26] LABS: BACTERIA,URINE FEW /HPF (None Seen); HYALINE CASTS, URINE 0-10 /LPF (None Seen); WBC,URINE 0-3 /HPF (0-3)
[2016-10-10] MEDS ORDERED: IPRATROPIUM/ALBUTEROL SULFATE 3 ML AMPUL.NEB INH PRN (07:45)
--- NOTE | 2016-10-10 07:57 | NUR ---
Patient states is unsure of medications he takes, unable to verify medications on file. Stated will attempt to obtain list of meds.
--- NOTE | 2016-10-10 07:57 | NUR ---
Patient denies any home medications w/ him at the time.
--- NOTE | 2016-10-10 08:06 | NUR ---
ADMIT NOTE Received pt from ER to the floor with a diagnosis of copd excacerbation. Admission process initiated. patient oriented to pain management, safety and call light-teach back done.
--- NOTE | 2016-10-10 08:21 | NUR ---
Gave report to Chepe GALVEZ in room 106A, patient had no noted distress, discomfort or SOB on transportation. Patient was moved to the MS bed with no complications. Paper work was given to the Charge nurse. Addendum: 10/10/16 at 0829 by MARIBETH Time correction 0810
[2016-10-10] MEDS ORDERED: NITROGLYCERIN 0.4 MG TAB.SUBL SL SCH (09:00)
[2016-10-10] MEDS ORDERED: LORazepam 1 MG TABLET PO PRN (09:00)
[2016-10-10] MEDS ORDERED: HYDROcodone/ACETAMIN 5-325 MG TAB (NORCO/ VICODIN) PO PRN (09:00)
[2016-10-10] MEDS ORDERED: FUROSEMIDE 40 MG TABLET PO SCH (09:00)
[2016-10-10] MEDS ORDERED: MILK OF MAGNESIA 30 ML UDC PO PRN (09:00)
[2016-10-10] MEDS ORDERED: cloNIDine HCL 0.1 MG TABLET PO PRN (09:00)
--- NOTE | 2016-10-10 09:05 | NUR ---
INITIAL NOTES RECEIVED PATIENT ON BED AWAKE.BREATHING EVEN AND UNLABORED WITH O2 AT 2L/M VIA OXIMIZER.COMPLAINING OF PAIN TO THE SITE OF CHEST TUBE DRAIN;OFFERED NORCO BUT REFUSED STATED "CAN YOU GIVE ME ANOTHER SHOT OF MORPHINE".EXPLAINED TO PATIENT THAT WE STILL NEED TO CALL HIS DOCTOR TO GET AN ORDER.IV SALINE LOCK INTACT AND PATENT;NO SIGNS AND SYMPTOMS OF INFILTRATION.SAFETY AND FALL PRECAUTIONS IN PLACE.CALL LIGHT WITHIN REACH
--- NOTE | 2016-10-10 09:21 | NUR ---
CONSULT CARDIO CHF DR FLANAGAN [phone] DR BARBOZA OR [facility] S/W [place] OFFICE @[phone]
[2016-10-10] MEDS: glipiZIDE XL 5 MG TAB ( GLUCOTROL XL) PO SCH (09:28)
--- NOTE | 2016-10-10 09:28 | NUR ---
CONSULT NEPHROLOGY PROTENURIA DR RAJPUT [phone] S/W [place] OFFICE @ 75
[2016-10-10] MEDS: FERROUS SULFATE 325 MG TABLET.DR PO SCH (09:29)
[2016-10-10] MEDS: OMEPRAZOLE 20 MG CAPSULE.DR (PriLOSEC) PO SCH (09:29)
[2016-10-10] MEDS: CARVEDILOL 25 MG TABLET (COREG) PO SCH ×2 (09:31→22:16)
--- NOTE | 2016-10-10 09:31 | NUR ---
CONSULT HEMATOLOGY ELEVATED D DIMER DR STAUFFER [phone] S/W [place] OFFICE @ [phone]
[2016-10-10] MEDS: IPRATROPIUM/ALBUTEROL SULFATE 3 ML AMPUL.NEB INH PRN ×4 (11:50→23:18)
[2016-10-10] MEDS ORDERED: methylPREDNISolone SOD SUCC 40 MG/ML VIAL IVP SCH (12:00)
[2016-10-10] MEDS ORDERED: D5W 1,000 ML IV PRN (12:18)
[2016-10-10] MEDS: LEVOFLOXACIN 500 MG/D5W 100 ML IV SCH (12:29)
[2016-10-10] MEDS ORDERED: GLUCOSE 15 GM GEL (in 37.5 GM TUBE) PO PRN ×2 (12:30)
[2016-10-10] MEDS ORDERED: DEXTROSE 50% JECT 50 ML DISP.SYRIN IVP PRN ×2 (12:30)
--- NOTE | 2016-10-10 12:30 | NUR ---
SERVED LUNCH;WITH POOR APPETITE
--- NOTE | 2016-10-10 13:32 | NUR ---
DR. BOWEN CAME AND EXAMINED THE PATIENT;WITH ORDERS AND CARRIED OUT
[2016-10-10] MEDS: MORPHINE 4 MG/ML INJ. SYRINGE IVP PRN ×3 (14:48→22:17)
[2016-10-10] MEDS: ONDANSETRON HCL 4 MG/2 ML VIAL IVP PRN (14:57)
--- NOTE | 2016-10-10 15:30 | NUR ---
CHECKED PATIENT;NEEDS ATTENDED TO
[2016-10-10] MEDS: methylPREDNISolone SOD SUCC 40 MG/ML VIAL IVP SCH (17:15)
[2016-10-10] MEDS: INSULIN ASPART 100 UNITS/ML, 10 ML VIAL (NovoLOG) SUBCUT PRN ×2 (17:24→22:21)
--- NOTE | 2016-10-10 18:11 | NUR ---
CLOSING NOTES PATIENT ON BED AWAKE TALKING TO A FRIEND ON THE PHONE.BREATHING EVEN AND UNLABORED.NO ACUTE DISTRESS.IV SALINE LOCK INTACT AND PATENT;NO SIGNS AND SYMPTOMS OF INFILTRATION.SAFETY AND FALL PRECAUTIONS IN PLACE.CALL LIGHT WITHIN REACH.WILL ENDORSE TO NEXT SHIFT ACCORDINGLY
--- NOTE | 2016-10-10 19:40 | NUR ---
INITIAL NOTES; -Pt is a/ox4, resting in bed. Vital signs stable 96.0,20, 131/68,77,g3rxi=41% with 2 L n/c oxy. Pt denies any pain,sob,or any acute distress. IV sites of left f/a #20, patent,no s/s any infiltration noted. Lung sounds clear throughout except nader posterior lower lobes diminished. Nader lower extrem discolorization noted. Left heel dry scab noted. Chest tube in place with a bag in place-no drainage noted. Bs present,abdomen soft & distended. Discussed poc, procedure, all safety measures with pt, and instructed pt not to get out bed to use call light for assistance, pt verbalized understanding. Urinal is at bedside. Fall precaution in place. All safety measures in place. Bed locked,low position,side rails x3, bed alarm in place. Call light w/in reach. Continue to monitor pt Addendum: 10/11/16 at 0704 by Kaleb Pinedo RN ADDITIONAL NOTES- CHEST TUBE WITH A BAG IN PLACE OF RT CHEST SITE
--- NOTE | 2016-10-10 20:05 | NUR ---
DR. CASTILLO CALLED ON CELLPHONE AND INFORMED MD REGARDING DX, HX OF CHF,DM, AND PT IS MED/SURG PATIENT, NO FURTHER ORDER PER MD. STATED,''I WILL BE IN TONIGHT.''
[2016-10-10] MEDS: ATORVASTATIN 20 MG TABLET PO SCH (22:15)
--- NOTE | 2016-10-10 22:17 | NUR ---
ROUNDS; PAIN MEDICATION ADMINISTERED AND BLOOD NLLBT=834,GAVE 6 UNITS SUBCUT SSI NOVOLOG COVERAGE. -Pt is c/o rt chest pain 8 out 10 sharp. Pt stated,'' Pain is where chest tube is.'' Gave Morphine SUlfate 4mg IVP and 6 units subcut ALEXIS insulin novolog. See EMAR for pain reassessment. Fall precaution in place. Bed alarm in place, bed low position, side rails x2. All safety measures in place. Call light w/in reach. Continue to monitor pt.
--- NOTE | 2016-10-10 23:20 | NUR ---
RESP THERAPIST ZHANG IS GIVING RESP TXMT
--- NOTE | 2016-10-10 23:35 | NUR ---
ROUNDS; BREATHING TXMT DONE -Pt is resting in bed. Breathing txmt done. Pt denies any pain,sob,or any acute distress. Urinal is at bedside. Fall precaution in place. All safety measures in place. Bed locked,low position,side rails x3, bed alarm in place. Call light w/in reach. Continue to monitor pt
[2016-10-11] MEDS: methylPREDNISolone SOD SUCC 40 MG/ML VIAL IVP SCH ×4 (00:39→18:20)
--- NOTE | 2016-10-11 02:10 | NUR ---
ROUNDS; -Pt is sleeping. No s/s any acute distress noted. Urinal is at bedside. Fall precaution in place. All safety measures in place. Bed locked,low position,side rails x3, bed alarm in place. Call light w/in reach. Continue to monitor pt
[2016-10-11] MEDS: ONDANSETRON HCL 4 MG/2 ML VIAL IVP PRN (02:42)
--- NOTE | 2016-10-11 02:42 | NUR ---
NAUSEA -Pt is c/o just nausea, gave Zofran 4mg IVP. Call light /win reach. continue to monitor pt.
--- NOTE | 2016-10-11 02:45 | NUR ---
CHANGED DRSG OF RT CHEST TUBE SITE -CLEANED WITH NS B/C PT IS ALLERGIC TO IODINE. SCANT YELLOW NOTED. APPLIED PETROLEUM PAD AROUND, GAUZES AND ABDOMINAL PAD AND SECURED WITH TAPE. DRSG CDI.
--- NOTE | 2016-10-11 04:19 | NUR ---
ROUNDS;ELEVATED CG=943/91 -Pt denies any pain,sob,N&V this time. Gave Clonidine 0.1mg po for OI=071/91. will recheck w/ in hour. Urinal is at bedside. Fall precaution in place. All safety measures in place. Bed locked,low position,side rails x3, bed alarm in place. Call light w/in reach. Continue to monitor pt
[2016-10-11 04:22] VITALS: BP_SYST 163
--- NOTE | 2016-10-11 06:24 | NUR ---
ROUNDS;BLOOD GWVGQ=573,GAVE 6 UNITS NOVOLOG SUBCUT -Gave 6 units Novolog subcut ssi coverage. Gave 4 oz juice, 1 cup of fruit jello and Justice cracker. Pt denies any pain,sob,N&V this time. Urinal is at bedside. Fall precaution in place. All safety measures in place. Bed locked,low position,side rails x3, bed alarm in place. Call light w/in reach. Continue to monitor pt
[2016-10-11] MEDS: INSULIN ASPART 100 UNITS/ML, 10 ML VIAL (NovoLOG) SUBCUT PRN ×4 (06:25→22:23)
[2016-10-11 06:59] LABS: BASOPHILS % (AUTO) 0.2 % (0.0-2.0); HEMATOCRIT 30.4 % (36-54); HEMOGLOBIN 9.5 g/dL (14.0-18.0); LYMPHOCYTES # (AUTO) 0.3 K/uL (1.0-5.5); LYMPHOCYTES % (AUTO) 4.6 % (20.5-51.5); MEAN CORPUSCULAR HEMOGLOBIN 27 pg (27-31); MEAN CORPUSCULAR HGB CONC 31 % (32-36); MEAN CORPUSCULAR VOLUME 86 fL (79.0-98.0); MONOCYTES # (AUTO) 0.1 K/uL (0.0-1.0); MONOCYTES % (AUTO) 1.7 % (1.7-9.3); NEUTROPHILS # (AUTO) 5.4 K/uL (1.8-7.7); NEUTROPHILS % (AUTO) 93.5 % (40.0-70.0); PLATELET COUNT (AUTO) 206 K/uL (130-430); RED BLOOD CELL COUNT(AUTO) 3.52 MIL/uL (4.2-6.2); WHITE BLOOD COUNT (AUTO) 5.8 K/uL (4.8-10.8)
--- NOTE | 2016-10-11 07:02 | NUR ---
CLOSING NOTES; -Pt is resting. Pt has 2 L n/c oxy. Pt denies any pain,sob,or any acute distress. IV sites of left f/a #20, patent,no s/s any infiltration noted. Left chest site of chest tube in place with a bag in place-no drainage noted. Urinal is at bedside. Fall precaution in place. All safety measures in place. Bed locked,low position,side rails x3, bed alarm in place. Call light w/in reach. Will endorse to oncoming nurse to continue care. Addendum: 10/11/16 at 0705 by Kaleb Pinedo RN CORRECTION-CHEST TUBE IN PLACE ON RT CHEST;NOT LEFT CHEST SITE
[2016-10-11 07:18] LABS: ALBUMIN 1.9 g/dL (3.4-4.8); CALCIUM 8.5 mg/dL (8.4-11.0); CREATININE 2.27 mg/dL (0.55-1.30); TOTAL BILIRUBIN 0.3 mg/dL (0.0-1.0); TOTAL PROTEIN, SERUM 7.4 g/dL (6.4-8.3)
--- NOTE | 2016-10-11 07:43 | NUR ---
Nutrition Update Amador Scale 17 noted. Pt admitted for acute COPD exacerbation. Diet: [facility] BMI: 29.2 kg/m2 RD to follow per nutrition care standards.
[2016-10-11 08:00] VITALS: BP_SYST 127
--- NOTE | 2016-10-11 08:00 | NUR ---
AM NOTES- IN BED AWAKE, ALERT AND ORIENTED. ON O2 2L. COMPLAIN OF MILD PAIN ON HIS RT CHEST. RIGHT CHEST HAS A PLEUR X CATHETER CONNECTED TO DRAINAGE BAG, NO DRAINAGE NOTED AT THIS TIME. IVL. USES URINAL WITH GOOD OUTPUT. NOTED SOME DRY SCABS ON BOTH LOWER EXTREMITIES. SAFETY PRECAUTION OBSERVED. CALL LIGHT IN REACH. WILL MONITOR.
[2016-10-11] MEDS: MORPHINE 4 MG/ML INJ. SYRINGE IVP PRN ×4 (08:50→22:16)
[2016-10-11] MEDS: FERROUS SULFATE 325 MG TABLET.DR PO SCH (08:51)
[2016-10-11] MEDS: glipiZIDE XL 5 MG TAB ( GLUCOTROL XL) PO SCH (08:51)
[2016-10-11] MEDS: OMEPRAZOLE 20 MG CAPSULE.DR (PriLOSEC) PO SCH (08:51)
[2016-10-11] MEDS: CARVEDILOL 25 MG TABLET (COREG) PO SCH ×2 (08:51→21:25)
[2016-10-11] MEDS ORDERED: FUROSEMIDE 40 MG/4 ML VIAL IVP SCH (09:00)
--- NOTE | 2016-10-11 10:00 | NUR ---
NOTES- IN BED RESTING, PAIN CONTROLLED AT THIS TIME. ABLE TO REPOSITION SELF. PT KEEP CALLING DIETARY AND ASKING FOR SNACKS. EDUCATE PT'S THAT HE IS ON DIABETIC DIET AND HE NEED TO CONTROL HIS SUGAR.
[2016-10-11 10:11] LABS: % FREE PSA 38.6 % (.); FREE PSA 0.27 ng/mL; PROSTATE SPECIFIC AG TOTAL 0.7 ng/mL (0.0-4.0)
[2016-10-11] MEDS: LEVOFLOXACIN 500 MG/D5W 100 ML IV SCH (11:53)
--- NOTE | 2016-10-11 12:37 | NUR ---
NOTES- BLOOD SUGAR 327, COVERED WITH INSULIN ORDERED.
[2016-10-11 12:45] VITALS: BP_SYST 135
--- NOTE | 2016-10-11 14:10 | NUR ---
note- complain of moderate pain. pain med not due yet. paged at this time.
[2016-10-11] MEDS: ACETAMINOPHEN 325 MG TABLET PO PRN (15:13)
[2016-10-11] MEDS: IPRATROPIUM/ALBUTEROL SULFATE 3 ML AMPUL.NEB INH PRN (15:28)
[2016-10-11 16:30] VITALS: BP_SYST 138
--- NOTE | 2016-10-11 18:44 | NUR ---
NOTES- IN BED AWAKE, PAIN CONTROLLED AT THIS TIME. NO ACUTE DISTRESS NOTED. ALL NEEDS MEET. WILL ENDORSE
[2016-10-11] MEDS ORDERED: HYDROcodone/ACETAMIN 5-325 MG TAB (NORCO/ VICODIN) PO PRN (20:45)
[2016-10-11] MEDS: ATORVASTATIN 20 MG TABLET PO SCH (21:25)
--- NOTE | 2016-10-11 22:00 | NUR ---
BS BS 291, 6UNITS NOVOLOG GIVEN PER SLIDING SCALE, NO HYPO/HYPERGLYCEMIA. SCHEDULED LEVEMIR GIVEN, PT TOLERATING WELL. CALL LIGHT W/IN REACH, SAFETY PRECAUTIONS IN PLACE, WILL CONTINUE TO MONITOR.
[2016-10-12] VITALS: BP_SYST 150
[2016-10-12] MEDS: MORPHINE 4 MG/ML INJ. SYRINGE IVP PRN ×4 (02:44→18:28)
--- NOTE | 2016-10-12 02:55 | NUR ---
RN ROUNDS PT IN BED RESTING CHEST RISING AND FALLING, NO DISTRESS NOTED. CALL LIGHT W/IN REACH, SAFETY PRECAUTIONS IN PLACE, WILL CONTINUE TO MONITOR.
--- NOTE | 2016-10-12 02:57 | NUR ---
PM ASSESSMENT PT A/OX4, AFEBRILE. PLEURX CATHETER IN PLACE, NO DRAINAGE NOTED. NO SOB OR DISTRESS. LUNG SOUNDS BILAT CLEAR. IV SITE ON LT FA 22G, INTACT AND PATENT, SL. POC DISCUSSED, PT STATED UNDERSTANDING. ORIENTED TO CALL LIGHT & W/IN REACH, SAFETY PRECAUTIONS IN PLACE, WILL CONTINUE TO MONITOR. Addendum: 10/12/16 at 0301 by Brie Wilkerson RN CHANGE TIME TO 1944
[2016-10-12 04:25] VITALS: BP_SYST 151
[2016-10-12] MEDS: INSULIN ASPART 100 UNITS/ML, 10 ML VIAL (NovoLOG) SUBCUT PRN ×4 (06:19→21:06)
--- NOTE | 2016-10-12 06:51 | NUR ---
BS BS 354, 10UNITS NOVOLOG GIVEN PER SLIDING SCALE, NO HYPO/HYPERGLYCEMIA. PT TOLERATING WELL. CALL LIGHT W/IN REACH, SAFETY PRECAUTIONS IN PLACE, WILL CONTINUE TO MONITOR.
--- NOTE | 2016-10-12 07:10 | NUR ---
ASSESSMENT Pt A/O X 4, pleurx catheter in place, no drainage noted, no SOB, lung sounds clear, IV site left forearm 22 rosalinda patent, call light in reach, will continue to monitor
--- NOTE | 2016-10-12 07:10 | NUR ---
ROUNDS Received report from rn enterostomal nurse, no c/o pain, no distress, call light in reach, will continue to monitor.
--- NOTE | 2016-10-12 07:35 | NUR ---
closing endorsed care at bedside to day nurse joceline salazar.
[2016-10-12 07:40] LABS: BASOPHILS % (AUTO) 0.1 % (0.0-2.0); EOSINOPHILS % (AUTO) 0.1 % (0.0-4.0); HEMATOCRIT 28.8 % (36-54); LYMPHOCYTES # (AUTO) 0.3 K/uL (1.0-5.5); LYMPHOCYTES % (AUTO) 2.7 % (20.5-51.5); MEAN CORPUSCULAR HEMOGLOBIN 27 pg (27-31); MEAN CORPUSCULAR HGB CONC 31 % (32-36); MEAN CORPUSCULAR VOLUME 85 fL (79.0-98.0); MONOCYTES # (AUTO) 0.4 K/uL (0.0-1.0); MONOCYTES % (AUTO) 3.6 % (1.7-9.3); NEUTROPHILS # (AUTO) 9.4 K/uL (1.8-7.7); NEUTROPHILS % (AUTO) 93.5 % (40.0-70.0); PLATELET COUNT (AUTO) 193 K/uL (130-430); RED BLOOD CELL COUNT(AUTO) 3.37 MIL/uL (4.2-6.2); RED CELL DISTRIBUTION WIDTH 16.3 % (9.0-15.0); WHITE BLOOD COUNT (AUTO) 10.1 K/uL (4.8-10.8)
[2016-10-12 07:50] LABS: ALBUMIN 1.8 g/dL (3.4-4.8); C-REACTIVE PROTEIN QUANT 3.5 mg/dL (0-0.5); CALCIUM 8.3 mg/dL (8.4-11.0); CREATININE 2.73 mg/dL (0.55-1.30); POTASSIUM 4.7 mmol/L (3.5-5.1); TOTAL BILIRUBIN 0.2 mg/dL (0.0-1.0); TOTAL PROTEIN, SERUM 6.9 g/dL (6.4-8.3)
[2016-10-12 08:00] VITALS: BP_SYST 127
[2016-10-12] MEDS: FUROSEMIDE 40 MG/4 ML VIAL IV SCH (08:56)
[2016-10-12] MEDS: FERROUS SULFATE 325 MG TABLET.DR PO SCH (09:00)
--- NOTE | 2016-10-12 09:10 | NUR ---
ROUNDS Pt resting in bed, call light in reach.
--- NOTE | 2016-10-12 10:10 | NUR ---
ROUNDS Pt resting in bed no distress, call light in reach.
[2016-10-12] MEDS: OMEPRAZOLE 20 MG CAPSULE.DR (PriLOSEC) PO SCH (10:11)
[2016-10-12] MEDS: glipiZIDE XL 5 MG TAB ( GLUCOTROL XL) PO SCH (10:12)
[2016-10-12] MEDS: CARVEDILOL 25 MG TABLET (COREG) PO SCH ×2 (10:13→21:04)
[2016-10-12 10:40] LABS: ERYTHROCYTE SEDIMENTATION RATE 105 MM/HR (0-15)
[2016-10-12 10:57] LABS: RETICULOCYTE COUNT 1.9 % (0.5-1.5)
[2016-10-12 11:39] VITALS: BP_SYST 152
--- NOTE | 2016-10-12 12:24 | NUR ---
dr cruz consult called dr cruz's office.notified janusz for consult.
--- NOTE | 2016-10-12 12:29 | NUR ---
CONS FOR [facility] POE FOR PNE DANIEL ENGLISH FROM OFFICE
--- NOTE | 2016-10-12 12:35 | NUR ---
CALL DR HARRISON SW WITH DR HARRISON SAID HAVE SURGEN TAKE OUT PLEURAL CATH OUT
--- NOTE | 2016-10-12 14:10 | NUR ---
ROUNDS Pt resting in bed no distress, call light in reach.
[2016-10-12 15:31] VITALS: BP_SYST 135
[2016-10-12] MEDS: IPRATROPIUM/ALBUTEROL SULFATE 3 ML AMPUL.NEB INH PRN ×2 (16:28→19:57)
--- NOTE | 2016-10-12 18:30 | NUR ---
CLOSING NOTES Pt resting in bed, no distress, drain on right chest intact with no drainage, waiting for pain med from RN, call light in reach.
[2016-10-12 19:55] VITALS: BP_SYST 143
--- NOTE | 2016-10-12 20:00 | NUR ---
NOTES; Seen Pt in bed, A/A/OX4. No acute distress noted, denies any SOB. Vital signs stable, afebrile. IV to left f/a #20, saline lock, patent. No signs or symptoms of infection noted. Abdomen soft nondistended with active bowel sound. Nader lower ext decolorization and scab noted. RT Chest tube with a drainage bag in place, no out put noted in bag. Discussed poc, procedure, all safety measures with pt, and instructed pt on the use of call light. Pt verbalized understanding. Urinal is at bedside. Bedside table within reach. Fall precaution in place. All safety measures in place. Bed locked and in low position,side rails x3, bed alarm in place. Call light w/in reach. Will continue to monitor.
[2016-10-12] MEDS: HYDROcodone/ACETAMIN 5-325 MG TAB (NORCO/ VICODIN) PO PRN (21:03)
[2016-10-12] MEDS: ATORVASTATIN 20 MG TABLET PO SCH (21:04)
--- NOTE | 2016-10-12 21:19 | NUR ---
NOTES; NORCO 1TAB PO ADMINISTERED FOR 5/10 RT RIB PLEURAL CATHETER SITE PAIN. SCHEDULED PO MEDICATION ADMINISTERED. BLOOD SUGAR FOUND TO BE 240. INSULIN SLIDING SCALE AND SCHEDULED INSULIN ADMINISTERED SUBCUTANEOUSLY PER MD ORDER.
--- NOTE | 2016-10-12 22:20 | NUR ---
NOTES; PT STATED EFFECTIVE PAIN MEDICATION.
--- NOTE | 2016-10-12 22:30 | NUR ---
NOTES; PT ORDERED FOOD FROM OUTSIDE, APPEARED TO BE PIZZA. PT ATE 100%. WATING TV, NO APPARENT DISTRESS NOTED. SAFETY MEASURES IN PROGRESS.
[2016-10-13] VITALS: BP_SYST 115
--- NOTE | 2016-10-13 00:10 | NUR ---
NOTES; APPEARED TO BE SLEEPING, EYES CLOSED. RESPIRATION EVEN AND UNLABORED. NO APPARENT DISTRESS NOTED. SAFETY MEASURES IN PROGRESS.
[2016-10-13] MEDS: MORPHINE 4 MG/ML INJ. SYRINGE IVP PRN ×5 (00:30→22:53)
[2016-10-13] MEDS: ACETAMINOPHEN 325 MG TABLET PO PRN (01:55)
--- NOTE | 2016-10-13 01:55 | NUR ---
NOTES; PT C/O 07/27 RT RIB PAIN. PT MEDICATED WITH TYLENOL 650MG PO. WILL CONTINUE O MONITOR.
[2016-10-13] MEDS: IPRATROPIUM/ALBUTEROL SULFATE 3 ML AMPUL.NEB INH PRN (02:01)
--- NOTE | 2016-10-13 02:50 | NUR ---
NOTES; PT STATED EFFECTIVE PAIN MEDICATION.
--- NOTE | 2016-10-13 04:45 | NUR ---
NOTES; APPEARED TO BE SLEEPING, EYES CLOSED. RESPIRATION EVEN AND UNLABORED. NO APPARENT DISTRESS NOTED. SAFETY MEASURES IN PROGRESS.
[2016-10-13 05:00] VITALS: BP_SYST 135
[2016-10-13] MEDS: INSULIN ASPART 100 UNITS/ML, 10 ML VIAL (NovoLOG) SUBCUT PRN ×2 (06:14→21:53)
--- NOTE | 2016-10-13 06:51 | NUR ---
NOTES; AWAKE, PT STATED TOLERABLE PAIN AT THIS TIME. PT STATED HE WILL CALL WHEN IN NEED TO BE MEDICATED. BLOOD SUGAR FOUND TO BE 196. INSULIN SLIDING SCALE ADMINISTERED SUBCUTANEOUSLY. ALL NEEDS ATTENDED. SAFETY MEASURES MAINTAINED.
--- NOTE | 2016-10-13 07:28 | NUR ---
OPENING NOTE PATIENT IS AWAKE, ALERT REPORTS PAIN IS AT A TOLERABLE LEVEL. PATIENT IS LYING FLAT IN BED, RIGHT FOOT SECOND AND THIRD TOE AMPUTATED, NO EDEMA IN LEGS, SKIN IS DUSKY, DRY. PATIENT IS ORIENTEDX4 AND IS STATING HE FEELS IF HE GET THE CHEST TUBE OUT HE CAN GO HOME TODAY. LUNGS CLEAR TO BASES, NO CRACKLES OR WHEEZING NOTED. CHEST TUBE SITE CLEAN, DRY AND COVERED WITH DRESSING, NO DRAINAGE NOTED IN BAG.
[2016-10-13 07:52] LABS: EOSINOPHILS % (AUTO) 0.1 % (0.0-4.0); HEMATOCRIT 28.3 % (36-54); LYMPHOCYTES # (AUTO) 0.7 K/uL (1.0-5.5); LYMPHOCYTES % (AUTO) 6.5 % (20.5-51.5); MEAN CORPUSCULAR HEMOGLOBIN 28 pg (27-31); MEAN CORPUSCULAR HGB CONC 32 % (32-36); MEAN CORPUSCULAR VOLUME 86 fL (79.0-98.0); MONOCYTES # (AUTO) 0.8 K/uL (0.0-1.0); NEUTROPHILS # (AUTO) 9.3 K/uL (1.8-7.7); NEUTROPHILS % (AUTO) 86.4 % (40.0-70.0); PLATELET COUNT (AUTO) 215 K/uL (130-430); RED BLOOD CELL COUNT(AUTO) 3.28 MIL/uL (4.2-6.2); RED CELL DISTRIBUTION WIDTH 16.2 % (9.0-15.0); WHITE BLOOD COUNT (AUTO) 10.8 K/uL (4.8-10.8)
[2016-10-13 08:15] VITALS: BP_SYST 141
[2016-10-13 08:19] LABS: ALBUMIN 2.1 g/dL (3.4-4.8); CALCIUM 8.2 mg/dL (8.4-11.0); CREATININE 2.49 mg/dL (0.55-1.30); POTASSIUM 3.9 mmol/L (3.5-5.1); TOTAL BILIRUBIN 0.2 mg/dL (0.0-1.0); TOTAL PROTEIN, SERUM 6.9 g/dL (6.4-8.3)
--- NOTE | 2016-10-13 08:45 | NUR ---
DR RICHARDS AT BEDSIDE. WITHDREW FLUID FROM CHEST TUBE FOR C&S, ORDERED CT SCAN
[2016-10-13] MEDS: glipiZIDE XL 5 MG TAB ( GLUCOTROL XL) PO SCH (09:26)
[2016-10-13] MEDS: OMEPRAZOLE 20 MG CAPSULE.DR (PriLOSEC) PO SCH (09:26)
[2016-10-13] MEDS: FUROSEMIDE 40 MG/4 ML VIAL IV SCH (09:27)
[2016-10-13] MEDS: CARVEDILOL 25 MG TABLET (COREG) PO SCH ×2 (09:27→21:07)
[2016-10-13] MEDS: FERROUS SULFATE 325 MG TABLET.DR PO SCH (09:27)
--- NOTE | 2016-10-13 09:45 | NUR ---
PATIENT TAKEN TO CT VIA WHEELCHAIR
--- NOTE | 2016-10-13 10:25 | NUR ---
PATIENT RETURNED FROM CT. PER TECH THE CHEST WALL TUBE WAS PULLED OUT. ASSESSMENT SHOWS TUBE IS STILL IN PLACE BEFORE, THE STITCHES TUGGED ON PT'S SKIN AND ARE CAUSING HIM PAIN. MEDICATED FOR PAIN AND REDRESSED CHEST WALL TUBE WITH GAUZE AND FOAM TAPE
--- NOTE | 2016-10-13 10:51 | NUR ---
SURGICAL SITE REDRESSED, IV RESTARTED IN RIGHT FOREARM. LEFT FOREARM IV WAS NOTED TO E INFILTRATED. PATIENT MEDICATED FOR PAIN.
--- NOTE | 2016-10-13 12:11 | NUR ---
DR RAJPUT IN TO SEE PATIENT
--- NOTE | 2016-10-13 12:24 | NUR ---
UNABLE TO PERFORM ACCUCHECK DUE TO PATIENT CARE FOR MY OTHER FOUR PATIENTS
[2016-10-13 12:43] VITALS: BP_SYST 135
--- NOTE | 2016-10-13 12:59 | NUR ---
PATIENT ATE APPROX 75% OF LUNCH, IS LYING IN BED ON THE TELEPHONE SPEAKING WITH FAMILY. NO SIGNS OF DISTRESS.
--- NOTE | 2016-10-13 13:23 | NUR ---
REDRESSED CHEST TUBE VALVES WERE IRRITATING PATIENT'S SKIN. HE PREFERS TO LIE ON HIS RIGHT SIDE ON THE CHEST TUBE
[2016-10-13] MEDS ORDERED: COMMUNICATION ORDER XX ONE (14:00)
[2016-10-13] MEDS: CEFEPIME 1 GM in D5W 50 ML IV SCH (14:49)
--- NOTE | 2016-10-13 15:14 | NUR ---
ADDED MORE PADDING TO CHEST TUBE VALVES. PATIENT MEDICATED ORDERED. MEDS GIVEN LATE BECAUSE MEDICATIONS WERE NOT AVAILABLE FROM THE PHARMACY AT THE TIME PHARMACY SCHEDULED THEM ON THE EMAR.
[2016-10-13] MEDS: LEVOFLOXACIN 250 MG/D5W 50 ML IV SCH (15:31)
--- NOTE | 2016-10-13 17:00 | NUR ---
BG 186, HOWEVER PATIENT STATES HE OFTEN GETS HYPOGLYCEMIC WITH GLIPIZIDE AND HE HAS JUST FINISHED A [employer] NO[employer] MEAL WITHIN THE LAST 20 MINUTES. HOLDING INSULIN COVERAGE AT THIS TIME.
[2016-10-13] MEDS: HYDROcodone/ACETAMIN 5-325 MG TAB (NORCO/ VICODIN) PO PRN (18:58)
--- NOTE | 2016-10-13 19:25 | NUR ---
CHANGE OF SHIFT: pt. awake, alert and oriented. still c/o pain on his rt. side with the chest tube , describe to be sharp and stabbing especially when he moves, he was just medicated with morphine and norco about an hour ago. will call Dr. Kong. IV lock. O2 @ 2l/nc. instructe on deep breathing exercise. call light within reach.
[2016-10-13 19:53] VITALS: BP_SYST 127
--- NOTE | 2016-10-13 20:18 | NUR ---
paged paged for Dr Kong, dialed . s/w Jaziel.
--- NOTE | 2016-10-13 20:20 | NUR ---
NOTES: asked tech to call Dr. Kong and return the call right away and informed him about pt. still c/o pain on his rt. side inspite of pain med already given, did not order any thing new except additional Erie x1, pt. informed.
--- NOTE | 2016-10-13 21:00 | NUR ---
NOTES: due meds given, blood sugar checked and sliding scale coverage to be given.needs attended.
[2016-10-13] MEDS: ATORVASTATIN 20 MG TABLET PO SCH (21:06)
[2016-10-13] MEDS ORDERED: HYDROcodone/ACETAMIN 5-325 MG TAB (NORCO/ VICODIN) PO ONE (21:15)
--- NOTE | 2016-10-13 23:00 | NUR ---
NOTES: was medicated with Morphine as ordered, still hurting on his rt. side. pt. repositioned on his left side with pillow. checked site with intact dressing. and pigtail to drainage bag, only serous drainage seen on the tubing, pt. said feels a little better on repositioning.HOB elevated.
[2016-10-14] VITALS (7 sets, daily range): BP systolic 125–140
--- NOTE | 2016-10-14 02:40 | NUR ---
NOTES: made rounds and remain sleeping. condition observed. Addendum: 10/14/16 at 0243 by Lola Galvan RN pt. called and asked to fix his pillow on his back, remain on his left side. offered Cedar for hi pain but wants Morphine, informed its not due yet but said he will wait for it (due in about 20 min.)
[2016-10-14] MEDS: MORPHINE 4 MG/ML INJ. SYRINGE IVP PRN ×4 (02:57→20:39)
--- NOTE | 2016-10-14 03:10 | NUR ---
NOTES: medicated with Morphine and helped repositioned. instructed on deep breathing.needs attended.
--- NOTE | 2016-10-14 05:11 | NUR ---
NOTES: pt. sleeping when checked. HOB elevated for comfort.
--- NOTE | 2016-10-14 06:25 | NUR ---
CLOSING NOTES: pt. awakened and asking for pain med, informed pt. that is not due yet. reinforced dressing on rt. upper chest, with pigtail, barely no drain except on the tubing with light brownish secretions. remain lying on left side for better comfort. deep breathing reminded.
--- NOTE | 2016-10-14 06:55 | NUR ---
NOTES: blood sugar checked 156, did not want the coverage, he said "its ok". medicated for pain on his rt. chest tube site.
[2016-10-14] MEDS: INSULIN ASPART 100 UNITS/ML, 10 ML VIAL (NovoLOG) SUBCUT PRN ×3 (07:09→17:59)
--- NOTE | 2016-10-14 07:30 | NUR ---
endorsed pt. to incoming shift with nurse Dong. pt. sleeping .
--- NOTE | 2016-10-14 08:00 | NUR ---
OPENING NOTE PATIENT IS AWAKE AND ALERT. MORPHINE GIVEN JUST BEFORE 0700. PATIENT STATES IT IS NOT HELPING HIS PAIN. NO OTHER SIGNS OF DISTRESS
[2016-10-14] MEDS: FERROUS SULFATE 325 MG TABLET.DR PO SCH (09:00)
[2016-10-14] MEDS: OMEPRAZOLE 20 MG CAPSULE.DR (PriLOSEC) PO SCH (09:23)
[2016-10-14] MEDS: FUROSEMIDE 40 MG/4 ML VIAL IV SCH ×2 (09:23→22:45)
[2016-10-14] MEDS: CARVEDILOL 25 MG TABLET (COREG) PO SCH ×2 (09:24→22:44)
[2016-10-14] MEDS: glipiZIDE XL 5 MG TAB ( GLUCOTROL XL) PO SCH (09:25)
--- NOTE | 2016-10-14 09:30 | NUR ---
PATIENT MEDICATED PER ORDERS. [facility]
[2016-10-14] MEDS: HYDROcodone/ACETAMIN 5-325 MG TAB (NORCO/ VICODIN) PO PRN (10:08)
--- NOTE | 2016-10-14 11:45 | NUR ---
PATIENT UP TO BEDSIDE COMMODE WITH ASSIST. STATES HE FEELS HE NEEDS A BREATHING TREATMENT. RT CALLED.
[2016-10-14] MEDS: IPRATROPIUM/ALBUTEROL SULFATE 3 ML AMPUL.NEB INH PRN (12:10)
[2016-10-14] MEDS: CEFEPIME 1 GM in D5W 50 ML IV SCH (13:31)
[2016-10-14] MEDS: LEVOFLOXACIN 250 MG/D5W 50 ML IV SCH (14:25)
--- NOTE | 2016-10-14 15:10 | NUR ---
dr atil at bedside to remove chest tube
--- NOTE | 2016-10-14 15:45 | NUR ---
chest tube site dressed with gauze and tape.
--- NOTE | 2016-10-14 16:42 | NUR ---
patient now stating he wants to go home
--- NOTE | 2016-10-14 17:21 | NUR ---
dr marroquin stating patient may go home under orders of pulmonology for infection management. dr sunitha shetty
--- NOTE | 2016-10-14 21:12 | NUR ---
PATIENT AWAKE ALERT assist with use of urinal , HOB elevated skin dry warm position change tolerated / .
--- NOTE | 2016-10-14 21:13 | NUR ---
MORPHINE SULFATE 4 MG IVP administer for general pain 11/26 & helpful .
[2016-10-14] MEDS: ATORVASTATIN 20 MG TABLET PO SCH (22:45)
[2016-10-15] VITALS: BP_SYST 139
--- NOTE | 2016-10-15 01:08 | NUR ---
Hourly Rounding patient awake this hour assist for position change verbally indicative using urinal as needed .
--- NOTE | 2016-10-15 01:09 | NUR ---
LORAZEPAM 0.5 MG PO administer for anxiety and helpful .
[2016-10-15 04:00] VITALS: BP_SYST 133
[2016-10-15] MEDS: MORPHINE 4 MG/ML INJ. SYRINGE IVP PRN ×4 (04:09→21:13)
--- NOTE | 2016-10-15 06:29 | NUR ---
MORPHINE SULFATE 4 MG IVP given for general pain 11/26 and helpful , patient resting this hour .
[2016-10-15 06:51] LABS: CALCIUM 8.1 mg/dL (8.4-11.0); CREATININE 2.53 mg/dL (0.55-1.30); POTASSIUM 4.1 mmol/L (3.5-5.1)
--- NOTE | 2016-10-15 07:50 | NUR ---
OPENING NOTE RECEIVED PATIENT FROM PACK TRAIN DRIVER NURSE, PATIENT IS CURRENTLY RESTING IN BED, NO SIGNS OF DISTRESS NOTED, BREATHING IS EVEN AND UNLABORED, ASSESSMENT COMPLETE, PATIENT CURRENTLY HAS 2L OF NC SATING AT 98%, PATIENT HAS A IV ON RIGHT FOREARM, SALINE LOCK, INFUSING WELL, INSTRUCTED PATIENT TO USE CALL JIMENEZ IF ASSISTANCE IS NEEDED, PATIENT VERBALIZED UNDERSTANDING, CALL JIMENEZ LEFT IN PATIENT'S HAND, BED IN LOWEST POSITION, BED ALARM ON, SIDE RAILS UP, NO OTHER NEEDS AT THIS TIME, WILL CONTINUE TO MONITOR PATIENT.
[2016-10-15 08:20] VITALS: BP_SYST 149
[2016-10-15] MEDS: glipiZIDE XL 5 MG TAB ( GLUCOTROL XL) PO SCH (08:48)
[2016-10-15] MEDS: CARVEDILOL 25 MG TABLET (COREG) PO SCH ×2 (08:48→21:14)
[2016-10-15] MEDS: FERROUS SULFATE 325 MG TABLET.DR PO SCH (08:48)
[2016-10-15] MEDS: OMEPRAZOLE 20 MG CAPSULE.DR (PriLOSEC) PO SCH (08:48)
[2016-10-15] MEDS: FUROSEMIDE 40 MG/4 ML VIAL IV SCH (08:49)
--- NOTE | 2016-10-15 08:53 | NUR ---
MEDICATIONS PATIENT RECEIVED MORNING MEDICATIONS, EDUCATED PATIENT ON POTENTIAL SIDE EFFECTS, PATIENT VERBALIZED UNDERSTANDING, NO OTHER NEEDS AT THIS TIME, WILL CONTINUE TO MONITOR, FALL PRECAUTIONS IN PLACE.
--- NOTE | 2016-10-15 10:54 | NUR ---
RN ROUNDS PATIENT IS CURRENTLY RESTING IN BED, NO SINGS OF DISTRESS NOTED, NO COMPLAINTS OF PAIN AT THIS TIME, WILL CONTINUE TO MONITOR, FALL PRECAUTIONS IN PLACE.
[2016-10-15] MEDS: CEFEPIME 1 GM in D5W 50 ML IV SCH (12:04)
[2016-10-15 12:13] VITALS: BP_SYST 147
--- NOTE | 2016-10-15 13:21 | NUR ---
RN ROUNDS PATIENT IS LYING IN BED, FAMILY IS AT BEDSIDE, NO SIGNS OF DISTRESS NOTED, NO OTHER NEEDS AT THIS TIME, FALL PRECAUTIONS IN PLACE, WILL CONTINUE TO MONITOR.
[2016-10-15] MEDS: LEVOFLOXACIN 250 MG/D5W 50 ML IV SCH (13:31)
--- NOTE | 2016-10-15 15:28 | NUR ---
RN ROUNDS PATIENT IS CURRENTLY LYING IN BED, NO SIGNS OF DISTRESS NOTED, PATIENT HAS NO COMPLAINTS OF PAIN AT THIS TIME, FALL PRECAUTIONS IN PLACE. WILL CONTINUE TO MONITOR.
[2016-10-15 16:43] VITALS: BP_SYST 145
[2016-10-15] MEDS: INSULIN ASPART 100 UNITS/ML, 10 ML VIAL (NovoLOG) SUBCUT PRN (17:33)
--- NOTE | 2016-10-15 17:42 | NUR ---
RN ROUNDS PATIENT IS CURRENTLY RESTING IN BED, NO SIGNS OF DISTRESS NOTED, PATIENT WAS GIVEN INSULIN FOR BS BEING 269, NO OTHER NEEDS AT THIS TIME, WILL CONTINUE TO MONITOR.
--- NOTE | 2016-10-15 18:36 | NUR ---
CLOSING NOTE PATIENT IS LYING IN BED, NO SIGNS OF DISTRESS NOTED, BREATHING IS EVEN AND UNLABORED, ALL NEEDS MET, WILL ENDORSE PATIENT TO MANAGER GROCERY, CALL JIMENEZ LEFT NEXT TO PATIENT'S HAND, BED IN LOWEST POSITION, BED ALARM ON, FALL PRECAUTIONS IN PLACE.
[2016-10-15] MEDS: ACETAMINOPHEN 325 MG TABLET PO PRN (19:40)
--- NOTE | 2016-10-15 19:40 | NUR ---
OPENING ASSESSMENT PATIENT ALERT/ORIENTED X4. SPEECH IS CLEAR AND APPROPRIATE. C/O H/A 07/27. TYLENOL 650MG PO GIVEN. HAS SALINE LOCK LFA. 20G INTACT AND PATENT. TOLERATING PO'S WELL. DENIES NAUSEA. O2 2L N/C. O2 SAT. IS 97%. NO SOB NOTED @ THIS TIME. ABLE TO USE URINAL. VOIDING CLEAR YELLOW URINE. ON STRICT I&O. CALL LIGHT WITHIN EASY ACCESS. INFORMED PATIENT NOT TO GET OUT OF BED AND TO CALL NURSE FOR ALL NEEDS.
[2016-10-15 19:58] VITALS: BP_SYST 154
[2016-10-15] MEDS: ATORVASTATIN 20 MG TABLET PO SCH (21:15)
[2016-10-15] MEDS: FUROSEMIDE 20 MG TABLET PO SCH (21:15)
--- NOTE | 2016-10-15 23:00 | NUR ---
initial nursing notes: Patient awake in bed. Patient has IV access on the right forearm. Patient denies of having pain. Patient has a 4 X 4 dressing on the right side of his back from a previous pleural catheter that was removed yesterday. No bleeding noted.
[2016-10-16] VITALS (8 sets, daily range): BP systolic 109–178
--- NOTE | 2016-10-16 01:00 | NUR ---
nursing rounds: Patient is on oxygen via nasal cannula. Patient has no shortness of breath. Kept patient's head of the bed elevated.
--- NOTE | 2016-10-16 03:00 | NUR ---
nursing rounds: Patient sleeping in bed. Patient's breathing pattern is regular and unlabored.
[2016-10-16] MEDS: MORPHINE 4 MG/ML INJ. SYRINGE IVP PRN ×2 (04:01→20:25)
--- NOTE | 2016-10-16 05:00 | NUR ---
nursing rounds: Patient stated that the pain medication was effective in treating his back pain.
--- NOTE | 2016-10-16 06:30 | NUR ---
nursing rounds: Patient calmly resting in bed. Call light within patient's reach.
[2016-10-16] MEDS: INSULIN ASPART 100 UNITS/ML, 10 ML VIAL (NovoLOG) SUBCUT PRN ×3 (06:37→22:12)
[2016-10-16 07:11] LABS: BASOPHILS % (AUTO) 0.2 % (0.0-2.0); EOSINOPHILS # (AUTO) 0.2 K/uL (0.0-0.4); EOSINOPHILS % (AUTO) 2.2 % (0.0-4.0); HEMATOCRIT 26.7 % (36-54); HEMOGLOBIN 8.5 g/dL (14.0-18.0); LYMPHOCYTES # (AUTO) 0.5 K/uL (1.0-5.5); LYMPHOCYTES % (AUTO) 6.6 % (20.5-51.5); MEAN CORPUSCULAR HEMOGLOBIN 27 pg (27-31); MEAN CORPUSCULAR HGB CONC 32 % (32-36); MEAN CORPUSCULAR VOLUME 86 fL (79.0-98.0); MONOCYTES # (AUTO) 0.8 K/uL (0.0-1.0); MONOCYTES % (AUTO) 9.2 % (1.7-9.3); NEUTROPHILS # (AUTO) 6.8 K/uL (1.8-7.7); NEUTROPHILS % (AUTO) 81.8 % (40.0-70.0); PLATELET COUNT (AUTO) 162 K/uL (130-430); RED BLOOD CELL COUNT(AUTO) 3.12 MIL/uL (4.2-6.2); RED CELL DISTRIBUTION WIDTH 16.5 % (9.0-15.0); WHITE BLOOD COUNT (AUTO) 8.3 K/uL (4.8-10.8)
[2016-10-16 07:25] LABS: CALCIUM 8.2 mg/dL (8.4-11.0); CREATININE 2.2 mg/dL (0.55-1.30); POTASSIUM 4.1 mmol/L (3.5-5.1)
--- NOTE | 2016-10-16 07:30 | NUR ---
INITIAL NOTE PATIENT IS CURRENTLY RESTING IN BED, NO SIGNS OF DISTRESS NOTED, BREATHING IS EVEN AND UNLABORED, ASSESSMENT COMPLETE, PATIENT CURRENTLY HAS 2L OF NC, IV ON LEFT FOREARM, SALINE LOCK, FLUSHING WELL, INSTRUCTED PATIENT TO CALL IF ASSISTANCE IS NEEDED, PATIENT VERBALIZED UNDERSTANDING, CALL JIMENEZ LEFT IN PATIENT'S HAND, BED IN LOWEST POSITION, BED ALARM ON, SIDE RAILS UP, FALL PRECAUTIONS IN PLACE, WILL CONTINUE TO MONITOR PATIENT.
--- NOTE | 2016-10-16 08:00 | NUR ---
closing nursing notes: Patient is awake, alert and oriented X 4. Patient is in no acute respiratory distress. No episodes of fall and no injuries throughout the overnight caregiver. Provided nursing report to incoming morning shift nurse, LEONOR Mendez, at patient's bedside.
[2016-10-16] MEDS: FERROUS SULFATE 325 MG TABLET.DR PO SCH (09:28)
[2016-10-16] MEDS: OMEPRAZOLE 20 MG CAPSULE.DR (PriLOSEC) PO SCH (09:28)
[2016-10-16] MEDS: glipiZIDE XL 5 MG TAB ( GLUCOTROL XL) PO SCH (09:28)
[2016-10-16] MEDS: CARVEDILOL 25 MG TABLET (COREG) PO SCH ×2 (09:29→21:54)
[2016-10-16] MEDS: FUROSEMIDE 20 MG TABLET PO SCH ×2 (09:30→21:53)
--- NOTE | 2016-10-16 09:30 | NUR ---
MEDICATIONS PATIENT RECEIVED MORNING MEDICATIONS, REEDUCATED PATIENT ON POTENTIAL SIDE EFFECTS, PATIENT VERBALIZED UNDERSTANDING, CALL JIMENEZ LEFT NEXT TO PATIENT'S HAND, BED IN LOWEST POSITION, BED ALARM ON, WILL CONTINUE TO MONITOR, FALL PRECAUTIONS IN PLACE.
--- NOTE | 2016-10-16 11:09 | NUR ---
rn rounds patient is currently resting in bed glucose checked, patient was given 2units of insulin for coverage, no other needs at this time, will continue to monitor
[2016-10-16] MEDS: ACETAMINOPHEN 325 MG TABLET PO PRN ×2 (12:17→22:30)
[2016-10-16] MEDS: CEFEPIME 1 GM in D5W 50 ML IV SCH (12:17)
[2016-10-16] MEDS: LEVOFLOXACIN 250 MG/D5W 50 ML IV SCH (12:57)
[2016-10-16] MEDS: ONDANSETRON HCL 4 MG/2 ML VIAL IVP PRN ×2 (12:57→20:19)
--- NOTE | 2016-10-16 13:00 | NUR ---
RN ROUNDS PATIENT STATED HE WAS FEELING NAUSEOUS, PRN MEDICATION WAS GIVEN, WILL CHECK EFFECTIVENESS, NO OTHER NEEDS AT THIS TIME, WILL CONTINUE TO MONITOR.
--- NOTE | 2016-10-16 14:53 | NUR ---
RN ROUNDS PATIENT IS CURRENTLY RESTING IN BED WITH EYES CLOSED, NO SIGNS OF DISTRESS NOTED, BREATHING IS EVEN AND UNLABORED, WILL CONTINUE TO MONITOR.
--- NOTE | 2016-10-16 16:32 | NUR ---
RN ROUNDS PATIENT IS CURRENTLY RESTING IN BED WITH EYES CLOSED, PATIENT STATED HE IS FEELING A LITTLE BETTER, ACCUCHECK DONE, GLUCOSE IS 143, NO INSULIN NEEDED AT THIS TIME, WILL CONTINUE TO MONITOR, FALL PRECAUTIONS IN PLACE
[2016-10-16] MEDS: IPRATROPIUM/ALBUTEROL SULFATE 3 ML AMPUL.NEB INH PRN ×2 (17:55→22:15)
--- NOTE | 2016-10-16 18:48 | NUR ---
CLOSING NOTE PATIENT IS CURRENTLY RESTING IN BED, NO SIGNS OF DISTRESS NOTED, NO COMPLAINTS OF PAIN AT THIS TIME, ALL NEEDS MET, WILL ENDORSE PATIENT TO ROUSTABOUT HAND NURSE, WILL ENDORSE DISCHARGE TO ROUSTABOUT HAND NURSE, BED IN LOWEST POSITION, BED ALARM ON, SIDE RAILS UP, FALL PRECAUTIONS IN PLACE
--- NOTE | 2016-10-16 20:00 | NUR ---
Received report & assumed care of pt this pm/evening or night nurse supervisor;Assess as charted,pt in mild distress due to pain,medicated
[2016-10-16] MEDS: ATORVASTATIN 20 MG TABLET PO SCH (21:52)
--- NOTE | 2016-10-16 22:45 | NUR ---
2230:IV site dc'd w/cannula intact;gauze pressure dressing applied;DC instructions reviewed w/pt [id number]:pt escorted to [facility] via wheelchair by CHIARA
--- NOTE | 2016-10-19 13:45 | NUR ---
Discharge Follow Up Phone Call: RN LACTATION CONSULTANT called and spoke with pt ([phone]). Pt states that he has been "so sick." Pt reports that he has called his PCP and is waiting for a call back regarding what to do. Pt stated that he needed to go and denied the need for additional follow up at this time. No further follow up phone calls required at this time.
== END 2016-10-16 22:55 | disposition home or self-care (01) | DRG 460 ==
LOC: SED 05:02 → SMU 07:43
PROVIDERS: ADMIT Family Medicine; ATTEND Family Medicine
PROC: 0WP9X0Z Removal of Drainage Device from Right Pleural Cavity, External Approach (ICD-10-PCS; principal; 2016-10-14)
DX: N17.0 Acute kidney failure with tubular necrosis (principal); E43 Unspecified severe protein-calorie malnutrition; I50.33 Acute on chronic diastolic (congestive) heart failure; J18.9 Pneumonia, unspecified organism; I13.0 Hypertensive heart and chronic kidney disease with heart failure and stage 1 through stage 4 chronic kidney disease, or unspecified chronic kidney disease; E11.22 Type 2 diabetes mellitus with diabetic chronic kidney disease; E11.51 Type 2 diabetes mellitus with diabetic peripheral angiopathy without gangrene; N18.3 Chronic kidney disease, stage 3 (moderate); J44.0 Chronic obstructive pulmonary disease with (acute) lower respiratory infection; E78.5 Hyperlipidemia, unspecified; J44.1 Chronic obstructive pulmonary disease with (acute) exacerbation; G89.4 Chronic pain syndrome; E87.70 Fluid overload, unspecified; F32.9 Major depressive disorder, single episode, unspecified; F41.9 Anxiety disorder, unspecified; I25.10 Atherosclerotic heart disease of native coronary artery without angina pectoris; I27.2 Other secondary pulmonary hypertension; K21.9 Gastro-esophageal reflux disease without esophagitis; N04.9 Nephrotic syndrome with unspecified morphologic changes; Z79.4 Long term (current) use of insulin; Z82.49 Family history of ischemic heart disease and other diseases of the circulatory system; Z83.3 Family history of diabetes mellitus; Z88.2 Allergy status to sulfonamides; Z91.041 Radiographic dye allergy status; Z91.013 Allergy to seafood; Z87.441 Personal history of nephrotic syndrome; Z87.442 Personal history of urinary calculi; Z87.891 Personal history of nicotine dependence; Z89.429 Acquired absence of other toe(s), unspecified side; Z91.14 Patient's other noncompliance with medication regimen; Z91.19 Patient's noncompliance with other medical treatment and regimen; Z93.1 Gastrostomy status; Z79.84 Long term (current) use of oral hypoglycemic drugs; Z79.899 Other long term (current) drug therapy
CPT/HCPCS: 36415; 36600; 71010; 71270-TC; 76770; 80048; 80053; 81000-TC; 82550-TC; 82803-TC; 82962; 83036; 83605; 83615-TC; 83880; 84153; 84443-TC; 84484; 85025; 85044-TC; 85379; 85610-TC; 85651-TC; 85730-TC; 86140; 87040-TC; 87070-TC; 93005; 93306; 94640; 94760; 96374; 96375; 99285; J0692; J1030; J1815; J1940; J1956; J2270; J2405; J7050; J7060